=== PATIENT | male | born 1965 ===

== ENCOUNTER 2021-08-09 18:13 | Inpatient (IN) | payer OTHER ==
--- NOTE | 2021-08-09 22:59 | XR ---
EXAMINATION TYPE: XR chest 1V portable DATE OF EXAM: 08/09/2021 COMPARISON: NONE HISTORY: Fever TECHNIQUE: Single view FINDINGS: Heart is normal. Lungs are clear of consolidation. There are no hilar masses. Costophrenic angles are clear of fluid. There is small linear density left lung base. IMPRESSION: Mild scarring or subsegmental atelectasis left lung base. Normal heart.
[2021-08-09 23:46] LABS: Basophils # (A) 0.3 k/uL (0-0.2); Basophils % (A) 1 %; Eosinophils % (A) 0 %; HCT 33.8 % (39.0-53.0); HGB 11.1 gm/dL (13.0-17.5); Lymphocytes # (A) 0.7 k/uL (1.0-4.8); Lymphocytes % (A) 2 %; MCH 31.3 pg (25.0-35.0); MCHC 32.8 g/dL (31.0-37.0); MCV 95.5 fL (80.0-100.0); Mean Platelet Volume 7.5; Monocytes # (A) 0.9 k/uL (0-1.0); Monocytes % (A) 3 %; Neutrophils # (A) 32.5 k/uL (1.3-7.7); Neutrophils % (A) 94 %; Platelet Count 715 k/uL (150-450); RBC 3.54 m/uL (4.30-5.90); RDW 13.1 % (11.5-15.5); WBC 34.7 k/uL (3.8-10.6)
[2021-08-09 23:53] LABS: Appearance,Urine Cloudy (Clear); Bacteria,Urine Moderate /hpf; Bilirubin,Urine Negative (Negative); Blood,Urine Small (Negative); Color,Urine Yellow; Glucose,Urine (UA) Negative (Negative); Hyaline Casts,Urine 32 /lpf (0-2); Ketones,Urine Trace (Negative); Leukocyte Esterase,Urine Large (Negative); Mucus,Urine Many /hpf; Nitrite,Urine Negative (Negative); Protein,Urine 2+ (Negative); RBC,Urine 16 /hpf (0-5); Squamous Epithelial Cell,Urine 9 /hpf (0-4); WBC,Urine 79 /hpf (0-5)
[2021-08-09 23:55] LABS: Partial Thromboplastin Time 28.1 sec (22.0-30.0); Prothrombin Time 11.1 sec (9.0-12.0)
[2021-08-10 00:01] LABS: ALT 18 U/L (4-49); AST 34 U/L (17-59); African American GFR (CKD) >90 (>60 ml/min/1.73 sqM); Albumin 2.8 g/dL (3.5-5.0); Alkaline Phosphatase 186 U/L (38-126); Anion Gap 12 mmol/L; Blood Urea Nitrogen 35 mg/dL (9-20); Calcium 9.6 mg/dL (8.4-10.2); Carbon Dioxide 19 mmol/L (22-30); Chloride 109 mmol/L (98-107); Glucose 155 mg/dL (74-99); Non-African American GFR(CKD) >90 (>60 ml/min/1.73 sqM); Sodium 140 mmol/L (137-145); Total Bilirubin 0.4 mg/dL (0.2-1.3); Total Protein 6.1 g/dL (6.3-8.2)
[2021-08-10 00:03] LABS: Potassium 2.6 mmol/L (3.5-5.1)
[2021-08-10] MEDS ORDERED: LEVOFLOXACIN 750MG-D5W PMX 750 MG in DEXTROSE/WATER 1 150ML.BAG IVPB STA (01:03)
[2021-08-10] MEDS: SODIUM CHLORIDE 0.9% 1,000 ML IV SCH ×2 (01:06→06:36)
[2021-08-10] MEDS ORDERED: metroNIDAZOLE-NS PMX 500 MG in SALINE 1 100ML.BAG IVPB STA (01:07)
--- NOTE | 2021-08-10 01:13 | ED ---
General Adult HPI - General Chief complaint: Weakness Stated complaint: Fever/Bed Sores/AMS Time Seen by Provider: 08/09/21 21:52 Source: patient, EMS Mode of arrival: EMS Limitations: altered mental status - History of Present Illness Initial comments: 's patient is a 55-year-old man (history of adrenoleukodystrophy) brought to have evaluation for constellation of symptoms that been going on over the past few days. History is from the patient's as he is appearing to be delirious. Patient's states that going back approximately 3 days he has been wanting to sleep more, which she usually does when he gets sick, even with a minor cold. The patient has been having some fevers and she contacted is visiting nurse. He was seen by his home health care worker and then when the fever recurred they suggested he be brought to the emergency department. The patient has been sleeping much more than usual over the past 2 days, including most of the time since last night. In addition, the patient's states that she noted he had followed her and noted that there was a sore near the patient's buttocks. She does not know how long that has been present as he can be private about bowel movements. -: days(s) Consistency: constant Improves with: none Worsens with: none Associated Symptoms: confusion, loss of appetite Treatments Prior to Arrival: NSAID - Related Data Home Medications Medication Instructions Recorded Confirmed Escitalopram [Lexapro] 10 mg PO DAILY 08/09/21 08/09/21 Fluticasone Nasal [place] [Flonase 2 spray EA NOSTRIL DAILY 08/09/21 08/09/21 Nasal [place]] HYDROcodone/APAP 10-325MG [[place] 1 tab PO BID PRN 08/09/21 08/09/21 10-325] Ibuprofen [Advil] 200 mg PO Q8HR PRN 08/09/21 08/09/21 Ibuprofen [Motrin] 800 mg PO Q8H PRN 08/09/21 08/09/21 Mirabegron [Myrbetriq] 50 mg PO DAILY 08/09/21 08/09/21 Allergies Allergy/AdvReac Type Severity Reaction Status Date / Time aspirin AdvReac Abdominal Verified 08/17/21 10:53 Pain Review of Systems ROS Statement: Those systems with pertinent positive or pertinent negative responses have been documented in the HPI. ROS Other: All systems not noted in ROS Statement are negative. Limitations: ROS unobtainable due to patients medical condition Past Medical History Additional Past Medical History / Comment(s): adrenal leukomyopathy History of Any Multi-Drug Resistant Organisms: None Reported Additional Past Surgical History / Comment(s): unspecified abdominal surgey Past Psychological History: Depression Smoking Status: Current every day smoker Past Alcohol Use History: None Reported Past Drug Use History: Marijuana General Exam Limitations: no limitations General appearance: obtunded, cachectic Head exam: Present: atraumatic, normocephalic Eye exam: Present: PERRL, EOMI. Absent: scleral icterus, conjunctival injection ENT exam: Present: mucous membranes dry Neck exam: Present: normal inspection, full ROM. Absent: tenderness Respiratory exam: Present: normal lung sounds bilaterally. Absent: respiratory distress, wheezes, rales, rhonchi, stridor, accessory muscle use, decreased breath sounds Cardiovascular Exam: Present: regular rate, normal rhythm, normal heart sounds. Absent: systolic murmur, diastolic murmur, rubs, gallop GI/Abdominal exam: Present: soft. Absent: distended, tenderness, guarding, rebound, rigid, mass exam: Present: other ([place] catheter) Extremities exam: Present: other (Flexion contractures lower extremity) Neurological exam: Present: altered, CN II-XII intact. Absent: oriented X3 Skin exam: Present: warm, dry, normal color, other (There is decubitus ulcer covering the sacrum. Skin is necrotic but the wound is not open. Measurements pending, but extensive.) Course Vital Signs 08/09/21 08/10/21 08/10/21 19:46 00:00 01:00 Temperature 98.3 F Pulse Rate 99 110 H 99 Pulse Rate [ Right] Respiratory 18 22 16 Rate Blood Pressure 107/75 118/71 Blood Pressure [Right Arm] O2 Sat by Pulse 95 96 95 Oximetry 08/10/21 08/10/21 08/10/21 02:00 04:19 05:02 Temperature 100.4 F H 99.3 F Pulse Rate 95 94 98 Pulse Rate [ Right] Respiratory 16 18 18 Rate Blood Pressure 102/64 107/68 120/73 Blood Pressure [Right Arm] O2 Sat by Pulse 94 L 93 L 95 Oximetry 08/10/21 08/10/2108/10/21 07:59 09:30 13:29 Temperature 99.3 F Pulse Rate 96 96 89 Pulse Rate [ Right] Respiratory 18 18 18 Rate Blood Pressure 118/73 129/77 114/83 Blood Pressure [Right Arm] O2 Sat by Pulse 95 96 90 L Oximetry 08/10/21 08/11/21 18:57 00:33 Temperature 100.8 F H 99.5 F Pulse Rate 86 Pulse Rate [ 91 Right] Respiratory 16 18 Rate Blood Pressure 129/77 Blood Pressure 116/71 [Right Arm] O2 Sat by Pulse 91 L 95 Oximetry Procedures - Sepsis Sepsis Focused Exam #1 Sepsis Focused Exam Date: 08/10/21 Sepsis Focused Exam Time: 02:00 Sepsis Focused Exam Complete: Yes Vital Signs & RN Notes Reviewed: Yes Capillary Refill: < 2 Seconds: Fingers Peripheral Pulses: Normal: Radial (R) Skin Color: Flushed Respiratory Exam: normal lung sounds Cardiovascular Exam: regular rate Medical Decision Making - Lab Data Result diagrams: 08/24/21 05:23 08/24/21 05:23 Lab Results 08/09/21 08/09/21 08/09/21 Range/Units 23:10 23:10 23:10 WBC 34.7 H (3.8-10.6) k/uL RBC 3.54 L (4.30-5.90) m/uL Hgb 11.1 L (13.0-17.5) gm/dL Hct 33.8 L (39.0-53.0) % MCV 95.5 (80.0-100.0) fL MCH 31.3 (25.0-35.0) pg MCHC 32.8 (31.0-37.0) g/dL RDW 13.1 (11.5-15.5) % Plt Count 715 H (150-450) k/uL MPV 7.5 Neutrophils % 94 % Lymphocytes % 2 % Monocytes % 3 % Eosinophils % 0 % Basophils % 1 % Neutrophils # 32.5 H (1.3-7.7) k/uL Lymphocytes # 0.7 L (1.0-4.8) k/uL Monocytes # 0.9 (0-1.0) k/uL Eosinophils # 0.0 (0-0.7) k/uL Basophils # 0.3 H (0-0.2) k/uL PT 11.1 (9.0-12.0) sec INR 1.0 (<1.2) APTT 28.1 (22.0-30.0) sec Sodium (137-145) mmol/L Potassium (3.5-5.1) mmol/L Chloride (98-107) mmol/L Carbon Dioxide (22-30) mmol/L Anion Gap mmol/L BUN (9-20) mg/dL Creatinine (0.66-1.25) mg/dL Est GFR (CKD-EPI)AfAm (>60 ml/min/1.73 sqM) Est GFR (CKD-EPI)NonAf (>60 ml/min/1.73 sqM) Glucose (74-99) mg/dL Plasma Lactic Acid [place] (0.7-2.0) mmol/L Calcium (8.4-10.2) mg/dL Total Bilirubin (0.2-1.3) mg/dL AST (17-59) U/L ALT (4-49) U/L Alkaline Phosphatase (38-126) U/L Troponin I (0.000-0.034) ng/mL Total Protein (6.3-8.2) g/dL Albumin (3.5-5.0) g/dL Urine Color Yellow Urine Appearance Cloudy (Clear) Urine pH 7.0 (5.0-8.0) Ur Specific [place] 1.030 (1.001-1.035) Urine Protein 2+ H (Negative) Urine Glucose (UA) Negative (Negative) Urine Ketones Trace H (Negative) Urine Blood Small H (Negative) Urine Nitrite Negative (Negative) Urine Bilirubin Negative (Negative) Urine Urobilinogen 2.0 (<2.0) mg/dL Ur Leukocyte Esterase Large H (Negative) Urine RBC 16 H (0-5) /hpf Urine WBC 79 H (0-5) /hpf Ur Squamous Epith Cells 9 H (0-4) /hpf Urine Bacteria Moderate H (None) /hpf Hyaline Casts 32 H (0-2) /lpf Urine Mucus Many H (None) /hpf 08/09/21 08/09/21 08/09/21 Range/Units 23:10 23:10 23:10 WBC (3.8-10.6) k/uL RBC (4.30-5.90) m/uL Hgb (13.0-17.5) gm/dL Hct (39.0-53.0) % MCV (80.0-100.0) fL MCH (25.0-35.0) pg MCHC (31.0-37.0) g/dL RDW (11.5-15.5) % Plt Count (150-450) k/uL MPV Neutrophils % % Lymphocytes % % Monocytes % % Eosinophils % % Basophils % % Neutrophils # (1.3-7.7) k/uL Lymphocytes # (1.0-4.8) k/uL Monocytes # (0-1.0) k/uL Eosinophils # (0-0.7) k/uL Basophils # (0-0.2) k/uL PT (9.0-12.0) sec INR (<1.2) APTT (22.0-30.0) sec Sodium 140 (137-145) mmol/L Potassium 2.6 L* (3.5-5.1) mmol/L Chloride 109 H (98-107) mmol/L Carbon Dioxide 19 L (22-30) mmol/L Anion Gap 12 mmol/L BUN 35 H (9-20) mg/dL Creatinine 0.91 (0.66-1.25) mg/dL Est GFR (CKD-EPI)AfAm >90 (>60 ml/min/1.73 sqM) Est GFR (CKD-EPI)NonAf >90 (>60 ml/min/1.73 sqM) Glucose 155 H (74-99) mg/dL Plasma Lactic Acid [place] 1.5 (0.7-2.0) mmol/L Calcium 9.6 (8.4-10.2) mg/dL Total Bilirubin 0.4 (0.2-1.3) mg/dL AST 34 (17-59) U/L ALT 18 (4-49) U/L Alkaline Phosphatase 186 H (38-126) U/L Troponin I <0.012 (0.000-0.034) ng/mL Total Protein 6.1 L (6.3-8.2) g/dL Albumin 2.8 L (3.5-5.0) g/dL Urine Color Urine Appearance (Clear) Urine pH (5.0-8.0) Ur Specific [place] (1.001-1.035) Urine Protein (Negative) Urine Glucose (UA) (Negative) Urine Ketones (Negative) Urine Blood (Negative) Urine Nitrite (Negative) Urine Bilirubin (Negative) Urine Urobilinogen (<2.0) mg/dL Ur Leukocyte Esterase (Negative) Urine RBC (0-5) /hpf Urine WBC (0-5) /hpf Ur Squamous Epith Cells (0-4) /hpf Urine Bacteria (None) /hpf Hyaline Casts (0-2) /lpf Urine Mucus (None) /hpf Disposition Clinical Impression: Pressure ulcer of sacral region, stage 4, Sepsis, Acute kidney injury, Hypokalemia Disposition: ADMITTED IP TO THIS HOSP Condition: Fair Is patient prescribed a controlled substance at d/c from ED?: No
--- NOTE | 2021-08-10 01:36 | CT ---
EXAMINATION TYPE: CT brain wo con DATE OF EXAM: 08/10/2021 COMPARISON: None HISTORY: fever, ams, weakness, h/o adrenal leukomyopathy CT DLP: 1160.4 mGycm Automated exposure control for dose reduction was used. Images obtained of the brain without contrast. There is cerebral cortical atrophy. There is hypodensity in the periventricular white matter. There i s no mass effect nor midline shift. There is no sign of intracranial hemorrhage. There is very little pneumatization of the mastoid sinuses. IMPRESSION: Cerebral atrophy and chronic small vessel ischemia. No acute intracranial abnormality. Bilateral mast oiditis.
[2021-08-10] MEDS ORDERED: POTASSIUM BICARBONATE/CIT AC 20 MEQ TABLET.EFF PO ONE (01:45)
[2021-08-10] MEDS: PIPERACILLIN-TAZOBACTAM 3.375 GM in SODIUM CHLORIDE 0.9% 100 ML IVPB ONE ×2 (01:47→03:07)
[2021-08-10] MEDS ORDERED: NALOXONE 0.4 MG/ML 1 ML VIAL IV PRN (01:49)
[2021-08-10] MEDS: SODIUM CHLORIDE 0.9% 500 ML 500 ML IV SCH ×3 (01:49→02:51)
[2021-08-10] MEDS ORDERED: VANCOMYCIN IV PER PHARMACY 1 EACH MISC MISCELLANE PRN (03:00)
--- NOTE | 2021-08-10 03:03 | P.HPIM ---
History of Present Illness H&P Date: 08/10/21 The patient is a 55-year-old male with a PMH of adrenoleukodystrophy, essentially bedbound who was brought into the emergency room by his for buttock ulcer, worsening mental status, and fever. The history was provided by the at the bedside who notes that over the past 2 days, she has noticed gradually worsening mentation for the patient. She reports that he is normally able to hold conversations but had been mostly sleeping over the past 24 hours. She checked his temperature was was 102.4F, and subsequently noticed the large ulcer over his buttock and called his visiting nurse. She advised him to go to the emergency room. She notes that the patient is at multiple small ulcers in the gluteal region over the past several months which quickly worsened over the past few weeks. She notes the patient spent the majority of his time in a recliner and refuses to get up or move to the bed. He follows with a neurologist at [facility] and is trying to get set up with [facility]. 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 The patient was only oriented to self and not answering questions appropriately and thereby history was severely limited. The workup from the emergency room was reviewed with laboratory evaluation remarkable for leukocytosis of 34.7, potassium 2.6, CO2 19, BUN 35, glucose 155, and an abnormal UA. Review of systems: Unable to perform complete review of systems as patient not answering questions appropriately Physical examination: General: Frail chronically ill-appearing male, no distress, appears significantly older than stated age Derm: Very large sacral and gluteal foul-smelling unstageable ulcer, no unusual ecchymoses, warm, dry Head: atraumatic, normocephalic, symmetric Eyes: EOMI, no lid lag, anicteric sclera, pupils equal round reactive to light ENT: Nose and ears atraumatic, no thrush, no pharyngeal erythema Neck: No thyromegaly, no cervical lymphadenopathy, trachea midline, supple Mouth: no lip lesion, mucus membranes dry Cardiovascular: S1S2 reg, no murmur, positive posterior tibial pulse bilateral, no edema, capillary refill less than 2 seconds Lungs: CTA bilateral, no rhonchi, no rales , no accessory muscle use Abdominal: soft, nontender to palpation, no guarding, no appreciable organomegaly, normal bowel sounds Ext: Diffuse muscle atrophy noted, muscle strength 3 out of 5 of bilateral upper extremities, strength 1 out of 5 of lower extremities bilaterally, no contractures, Neuro: No gross focal deficits noted Psych: Lethargic, oriented only to self Assessment/plan Sepsis, suspected secondary to large unstageable sacral ulcer -Continue vancomycin and Zosyn -Surgery consulted for debridement -Continue with IV fluids -Follow up blood cultures Hypokalemia -Replace and monitor Prerenal azotemia, suspected secondary to poor oral intake and dehydration -Continue with IV fluids and monitor BMP Thrombocytosis, suspected reactive with dehydration and acute stressor -Monitor for now DVT prophylaxis -Heparin subcu The patient is admitted with an anticipated greater than 2 midnight stay for evaluation of sepsis secondary to sacral ulcer CODE STATUS: Full Code Discussed with: patient, Anticipated discharge date: 2-[address]: Home Past Medical History Additional Past Medical History / Comment(s): adrenal leukomyopathy History of Any Multi-Drug Resistant Organisms: None Reported Additional Past Surgical History / Comment(s): unspecified abdominal surgey Past Psychological History: Depression Smoking Status: Current every day smoker Past Alcohol Use History: None Reported Past Drug Use History: Marijuana Medications and Allergies Home Medications Medication Instructions Recorded Confirmed Type Escitalopram [Lexapro] 10 mg PO DAILY 08/09/21 08/09/21 History Fluticasone Nasal [place] [Flonase 2 spray EA NOSTRIL DAILY 08/09/21 08/09/21 History Nasal [place]] HYDROcodone/APAP 10-325MG [[place] 1 tab PO BID PRN 08/09/21 08/09/21 History 10-325] Ibuprofen [Advil] 200 mg PO Q8HR PRN 08/09/21 08/09/21 History Ibuprofen [Motrin] 800 mg PO Q8H PRN 08/09/21 08/09/21 History Mirabegron [Myrbetriq] 50 mg PO DAILY 08/09/21 08/09/21 History Allergies Allergy/AdvReac Type Severity Reaction Status Date / Time aspirin AdvReac Abdominal Verified 08/09/21 22:50 Pain Physical Exam Vitals: Vital Signs Temp Pulse Resp BP Pulse Ox 08/10/21 01:00 92 22 109/72 94 L 08/10/21 00:00 110 H 22 96 08/09/21 19:46 98.3 F 99 18 107/75 95 Intake and Output 08/09/21 08/09/21 08/10/21 14:59 22:59 06:59 Other: Weight 61.235 kg Results CBC & Chem 7: 08/09/21 23:10 08/09/21 23:10 Labs: Abnormal Lab Results - Last 24 Hours (Table) 08/09/21 08/09/21 08/09/21 Range/Units 23:10 23:10 23:10 WBC 34.7 H (3.8-10.6) k/uL RBC 3.54 L (4.30-5.90) m/uL Hgb 11.1 L (13.0-17.5) gm/dL Hct 33.8 L (39.0-53.0) % Plt Count 715 H (150-450) k/uL Neutrophils # 32.5 H (1.3-7.7) k/uL Lymphocytes # 0.7 L (1.0-4.8) k/uL Basophils # 0.3 H (0-0.2) k/uL Potassium 2.6 L* (3.5-5.1) mmol/L Chloride 109 H (98-107) mmol/L Carbon Dioxide 19 L (22-30) mmol/L BUN 35 H (9-20) mg/dL Glucose 155 H (74-99) mg/dL Alkaline Phosphatase 186 H (38-126) U/L Total Protein 6.1 L (6.3-8.2) g/dL Albumin 2.8 L (3.5-5.0) g/dL Urine Protein 2+ H (Negative) Urine Ketones Trace H (Negative) Urine Blood Small H (Negative) Ur Leukocyte Esterase Large H (Negative) Urine RBC 16 H (0-5) /hpf Urine WBC 79 H (0-5) /hpf Ur Squamous Epith Cells 9 H (0-4) /hpf Urine Bacteria Moderate H (None) /hpf Hyaline Casts 32 H (0-2) /lpf Urine Mucus Many H (None) /hpf
[2021-08-10] MEDS: ACETAMINOPHEN TAB 325 MG TAB PO PRN ×2 (03:07→09:59)
[2021-08-10] MEDS: VANCOMYCIN 1,250 MG in SODIUM CHLORIDE 0.9% 250 ML IVPB SCH ×2 (04:54→16:28)
[2021-08-10 05:58] LABS: African American GFR (CKD) >90 (>60 ml/min/1.73 sqM); Anion Gap 11 mmol/L; Blood Urea Nitrogen 31 mg/dL (9-20); Calcium 8.8 mg/dL (8.4-10.2); Carbon Dioxide 17 mmol/L (22-30); Chloride 115 mmol/L (98-107); Glucose 157 mg/dL (74-99); Non-African American GFR(CKD) >90 (>60 ml/min/1.73 sqM); Potassium 2.8 mmol/L (3.5-5.1); Sodium 143 mmol/L (137-145)
[2021-08-10] MEDS: POTASSIUM CHLORIDE 10 MEQ in WATER FOR INJECTION 1 100ML.BAG IVPB SCH ×2 (06:33→07:41)
[2021-08-10] MEDS: HEPARIN SODIUM,PORCINE/PF 5,000 UNIT/0.5 ML SYRINGE SQ SCH ×2 (07:58→16:01)
[2021-08-10] MEDS: PIPERACILLIN-TAZOBACTAM 3.375 GM in SODIUM CHLORIDE 0.9% 100 ML IVPB SCH ×2 (09:59→17:20)
[2021-08-10 10:18] LABS: HCT 27.8 % (39.6-50.0); HGB 9.1 g/dL (13.0-17.0); MCH 30.7 pg (27.0-32.0); MCHC 32.7 g/dL (32.0-37.0); MCV 93.9 fL (80.0-97.0); Mean Platelet Volume 10.1 fL (9.5-12.2); Platelet Count 610 X 10*3/uL (140-440); RBC 2.96 X 10*6/uL (4.40-5.60); RDW 13.9 % (11.5-14.5); WBC 27.06 X 10*3/uL (4.50-10.00)
[2021-08-10 12:21] LABS: African American GFR (CKD) >90 (>60 ml/min/1.73 sqM); Anion Gap 8 mmol/L; Blood Urea Nitrogen 24 mg/dL (9-20); Calcium 8.9 mg/dL (8.4-10.2); Carbon Dioxide 20 mmol/L (22-30); Chloride 118 mmol/L (98-107); Glucose 171 mg/dL (74-99); Non-African American GFR(CKD) >90 (>60 ml/min/1.73 sqM); Sodium 146 mmol/L (137-145)
[2021-08-10 12:34] LABS: Potassium 2.3 mmol/L (3.5-5.1)
[2021-08-10] MEDS ORDERED: POTASSIUM CHLORIDE 10 MEQ in WATER FOR INJECTION 1 100ML.BAG IVPB STA (12:48)
--- NOTE | 2021-08-10 12:52 | P.PN ---
Progress Note - Text Progress Note Date: 08/10/21 Patient was seen and examined, his potassium still low, sodium is higher. We'll change fluids to half-normal saline and continue to replace potassium. Infectious disease consult was placed to manage abx, follow up cultures. Awaiting surgery input.
[2021-08-10] MEDS: POTASSIUM CHLORIDE ER 20 MEQ TAB.ER PO SCH ×3 (13:19→20:45)
--- NOTE | 2021-08-10 14:13 | P.GSCN ---
History of Present Illness Consult date: 08/10/21 History of present illness: CHIEF COMPLAINT: Sacral decubitus ulcer HISTORY OF PRESENT ILLNESS: This is a 55-year-old male who is essentially bedbound who presents to the emergency room with worsening of his sacral decubitus ulcer. Per patient's patient had 2 small wounds on the sacrum. She had been applying cream to the area for the last 1-2 months. She had stopped applying the cream to the area over the last week. She reports that the patient had stopped complaining of pain in that area. And then within the last day patient was brought back into the ER due to worsening mental status, fever and worsening of the sacral wound. Patient did have a fever 102 at home. And the visiting home nurse had reported a very large sacral decubitus ulcer. Patient did have a low-grade temp of 100.4 early this morning with tachycardia and leukocytosis. Patient is currently on IV antibiotics. Surgical service consulted for debridement of sacral decubitus ulcer. Patient has no prior history of debridements to this area. PAST MEDICAL HISTORY: Adrenolleukodystrophy, depression PAST SURGICAL HISTORY: Unspecified abdominal surgery MEDICATIONS: See list. ALLERGIES: See list. SOCIAL HISTORY: No illicit drug use. REVIEW OF SYSTEMS: CONSTITUTIONAL: Denies fever or chills. HEENT: Denies blurred vision, vision changes, or eye pain. Denies hemoptysis CARDIOVASCULAR: Denies chest pain or pressure. RESPIRATORY: No shortness of breath. GASTROINTESTINAL: See HPI for pertinent findings HEMATOLOGIC: Denies bleeding disorders. GENITOURINARY: Denies any blood in urine or increased urinary frequency. SKIN: Denies pruitis. Denies rash. PHYSICAL EXAM: VITAL SIGNS: Reviewed GENERAL: Well-developed in no acute distress. HEENT: No sclera icterus. Extraocular movements grossly intact. Moist buccal mucosa. Head is atraumatic, normocephalic. No nasal drainage. ABDOMEN: Soft. Nondistended. Nontender NEUROLOGIC: Alert and oriented. Cranial nerves II through XII grossly intact. Skin: Patient has a large sacral decubitus ulcer measuring about 10 x 5 cm. Area black eschar tissue. Follow odor. No drainage. LABORATORY DATA: WBC 34.7 down to 27.06 Hgb 11.1 down to 9.1 PLT 610 Sodium 146 potassium 2.3 creatinine 0.56 Lactic 1.5 COVID-19 not detected IMAGING: ASSESSMENT: 1. Large sacral decubitus ulcer 2. Hypokalemia PLAN: -Patient scheduled for incision and debridement of sacral decubitus ulcer tomorrow, 08/11/[address] Perez -Keep patient nothing by mouth after midnight -Continue IV antibiotics -Continue to replace potassium -Check magnesium and replace as needed Thank you for this consultation Physician Game Producer note has been reviewed by physician. Signing provider agrees with the documented findings, assessment, and plan of care. Past Medical History Additional Past Medical History / Comment(s): adrenal leukomyopathy History of Any Multi-Drug Resistant Organisms: None Reported Additional Past Surgical History / Comment(s): unspecified abdominal surgey Past Psychological History: Depression Smoking Status: Current every day smoker Past Alcohol Use History: None Reported Past Drug Use History: Marijuana Medications and Allergies Home Medications Medication Instructions Recorded Confirmed Type Escitalopram [Lexapro] 10 mg PO DAILY 08/09/21 08/09/21 History Fluticasone Nasal [place] [Flonase 2 spray EA NOSTRIL DAILY 08/09/21 08/09/21 History Nasal [place]] HYDROcodone/APAP 10-325MG [[place] 1 tab PO BID PRN 08/09/21 08/09/21 History 10-325] Ibuprofen [Advil] 200 mg PO Q8HR PRN 08/09/21 08/09/21 History Ibuprofen [Motrin] 800 mg PO Q8H PRN 08/09/21 08/09/21 History Mirabegron [Myrbetriq] 50 mg PO DAILY 08/09/21 08/09/21 History Allergies Allergy/AdvReac Type Severity Reaction Status Date / Time aspirin AdvReac Abdominal Verified 08/09/21 22:50 Pain Surgical - Exam Vital Signs Temp Pulse Resp BP Pulse Ox 98.3 F 99 18 107/75 95 08/09/21 19:46 08/09/21 19:46 08/09/21 19:46 08/09/21 19:46 08/09/21 19:46 Results - Labs 08/10/21 03:48 08/10/21 11:40 Abnormal Lab Results - Last 24 Hours (Table) 08/09/21 08/09/21 08/09/21 Range/Units 23:10 23:10 23:10 WBC 34.7 H (3.8-10.6) k/uL RBC 3.54 L (4.30-5.90) m/uL Hgb 11.1 L (13.0-17.5) gm/dL Hct 33.8 L (39.0-53.0) % Plt Count 715 H (150-450) k/uL Neutrophils # 32.5 H (1.3-7.7) k/uL Lymphocytes # 0.7 L (1.0-4.8) k/uL Basophils # 0.3 H (0-0.2) k/uL Sodium (137-145) mmol/L Potassium 2.6 L* (3.5-5.1) mmol/L Chloride 109 H (98-107) mmol/L Carbon Dioxide 19 L (22-30) mmol/L BUN 35 H (9-20) mg/dL Creatinine (0.66-1.25) mg/dL Glucose 155 H (74-99) mg/dL Alkaline Phosphatase 186 H (38-126) U/L Total Protein 6.1 L (6.3-8.2) g/dL Albumin 2.8 L (3.5-5.0) g/dL Urine Protein 2+ H (Negative) Urine Ketones Trace H (Negative) Urine Blood Small H (Negative) Ur Leukocyte Esterase Large H (Negative) Urine RBC 16 H (0-5) /hpf Urine WBC 79 H (0-5) /hpf Ur Squamous Epith Cells 9 H (0-4) /hpf Urine Bacteria Moderate H (None) /hpf Hyaline Casts 32 H (0-2) /lpf Urine Mucus Many H (None) /hpf 08/10/21 08/10/21 08/10/21 Range/Units 03:48 03:48 11:40 WBC 27.06 H (3.8-10.6) k/uL RBC 2.96 L (4.30-5.90) m/uL Hgb 9.1 L (13.0-17.5) gm/dL Hct 27.8 L (39.0-53.0) % Plt Count 610 H (150-450) k/uL Neutrophils # (1.3-7.7) k/uL Lymphocytes # (1.0-4.8) k/uL Basophils # (0-0.2) k/uL Sodium 146 H (137-145) mmol/L Potassium 2.8 L 2.3 L* (3.5-5.1) mmol/L Chloride 115 H 118 H (98-107) mmol/L Carbon Dioxide 17 L 20 L (22-30) mmol/L BUN 31 H 24 H (9-20) mg/dL Creatinine 0.65 L 0.56 L (0.66-1.25) mg/dL Glucose 157 H 171 H (74-99) mg/dL Alkaline Phosphatase (38-126) U/L Total Protein (6.3-8.2) g/dL Albumin (3.5-5.0) g/dL Urine Protein (Negative) Urine Ketones (Negative) Urine Blood (Negative) Ur Leukocyte Esterase (Negative) Urine RBC (0-5) /hpf Urine WBC (0-5) /hpf Ur Squamous Epith Cells (0-4) /hpf Urine Bacteria (None) /hpf Hyaline Casts (0-2) /lpf Urine Mucus (None) /hpf Microbiology - Last 24 Hours (Table) 08/09/21 23:10 Urine Culture - Preliminary Urine,Voided Diabetes panel 08/09/21 08/10/21 08/10/21 Range/Units 23:10 03:48 11:40 Sodium 140 143 146 H (137-145) mmol/L Potassium 2.6 L* 2.8 L 2.3 L* (3.5-5.1) mmol/L Chloride 109 H 115 H 118 H (98-107) mmol/L Carbon Dioxide 19 L 17 L 20 L (22-30) mmol/L BUN 35 H 31 H 24 H (9-20) mg/dL Creatinine 0.91 0.65 L 0.56 L (0.66-1.25) mg/dL Glucose 155 H 157 H 171 H (74-99) mg/dL Calcium 9.6 8.8 8.9 (8.4-10.2) mg/dL AST 34 (17-59) U/L ALT 18 (4-49) U/L Alkaline Phosphatase 186 H (38-126) U/L Total Protein 6.1 L (6.3-8.2) g/dL Albumin 2.8 L (3.5-5.0) g/dL Calcium panel 08/09/21 08/10/21 08/10/21 Range/Units 23:10 03:48 11:40 Calcium 9.6 8.8 8.9 (8.4-10.2) mg/dL Albumin 2.8 L (3.5-5.0) g/dL Pituitary panel 08/09/21 08/10/21 08/10/21 Range/Units 23:10 03:48 11:40 Sodium 140 143 146 H (137-145) mmol/L Potassium 2.6 L* 2.8 L 2.3 L* (3.5-5.1) mmol/L Chloride 109 H 115 H 118 H (98-107) mmol/L Carbon Dioxide 19 L 17 L 20 L (22-30) mmol/L BUN 35 H 31 H 24 H (9-20) mg/dL Creatinine 0.91 0.65 L 0.56 L (0.66-1.25) mg/dL Glucose 155 H 157 H 171 H (74-99) mg/dL Calcium 9.6 8.8 8.9 (8.4-10.2) mg/dL Adrenal panel 08/09/21 08/10/21 08/10/21 Range/Units 23:10 03:48 11:40 Sodium 140 143 146 H (137-145) mmol/L Potassium 2.6 L* 2.8 L 2.3 L* (3.5-5.1) mmol/L Chloride 109 H 115 H 118 H (98-107) mmol/L Carbon Dioxide 19 L 17 L 20 L (22-30) mmol/L BUN 35 H 31 H 24 H (9-20) mg/dL Creatinine 0.91 0.65 L 0.56 L (0.66-1.25) mg/dL Glucose 155 H 157 H 171 H (74-99) mg/dL Calcium 9.6 8.8 8.9 (8.4-10.2) mg/dL Total Bilirubin 0.4 (0.2-1.3) mg/dL AST 34 (17-59) U/L ALT 18 (4-49) U/L Alkaline Phosphatase 186 H (38-126) U/L Total Protein 6.1 L (6.3-8.2) g/dL Albumin 2.8 L (3.5-5.0) g/dL
[2021-08-10] MEDS: SODIUM CHLORIDE 0.45% 1,000 ML IV SCH (16:00)
[2021-08-10] MEDS ORDERED: POTASSIUM CHLORIDE 10 MEQ in WATER FOR INJECTION 1 100ML.BAG IVPB ONE (16:00)
[2021-08-10 18:45] LABS: Magnesium 2.4 mg/dL (1.6-2.3)
[2021-08-10 19:19] LABS: African American GFR (CKD) >90 (>60 ml/min/1.73 sqM); Anion Gap 8 mmol/L; Blood Urea Nitrogen 22 mg/dL (9-20); Carbon Dioxide 19 mmol/L (22-30); Chloride 119 mmol/L (98-107); Glucose 162 mg/dL (74-99); Non-African American GFR(CKD) >90 (>60 ml/min/1.73 sqM); Potassium 2.9 mmol/L (3.5-5.1); Sodium 146 mmol/L (137-145)
[2021-08-11] MEDS: AMPICILLIN-SULBACTAM 3 GM in SODIUM CHLORIDE 0.9% 100 ML IVPB SCH ×4 (00:46→18:20)
[2021-08-11] MEDS: POTASSIUM CHLORIDE ER 20 MEQ TAB.ER PO SCH (00:47)
[2021-08-11] MEDS: ACETAMINOPHEN TAB 325 MG TAB PO PRN ×2 (00:47→15:02)
[2021-08-11] MEDS: HEPARIN SODIUM,PORCINE/PF 5,000 UNIT/0.5 ML SYRINGE SQ SCH ×3 (00:47→15:03)
[2021-08-11] MEDS: SODIUM CHLORIDE 0.45% 1,000 ML IV SCH ×2 (01:52→10:37)
[2021-08-11] MEDS: VANCOMYCIN 1,250 MG in SODIUM CHLORIDE 0.9% 250 ML IVPB SCH ×2 (03:18→16:09)
[2021-08-11 06:20] LABS: African American GFR (CKD) >90 (>60 ml/min/1.73 sqM); Anion Gap 6 mmol/L; Blood Urea Nitrogen 19 mg/dL (9-20); Carbon Dioxide 20 mmol/L (22-30); Chloride 124 mmol/L (98-107); Glucose 151 mg/dL (74-99); Magnesium 2.4 mg/dL (1.6-2.3); Non-African American GFR(CKD) >90 (>60 ml/min/1.73 sqM); Potassium 3.4 mmol/L (3.5-5.1); Sodium 150 mmol/L (137-145)
[2021-08-11 06:28] LABS: Basophils % (A) 0 %; Eosinophils % (A) 0 %; HCT 29.8 % (39.0-53.0); HGB 9.7 gm/dL (13.0-17.5); Lymphocytes # (A) 1.2 k/uL (1.0-4.8); Lymphocytes % (A) 5 %; MCH 31.4 pg (25.0-35.0); MCHC 32.5 g/dL (31.0-37.0); MCV 96.7 fL (80.0-100.0); Mean Platelet Volume 7.6; Monocytes # (A) 0.5 k/uL (0-1.0); Monocytes % (A) 2 %; Neutrophils # (A) 20.1 k/uL (1.3-7.7); Neutrophils % (A) 91 %; Platelet Count 612 k/uL (150-450); RBC 3.08 m/uL (4.30-5.90); RDW 13.2 % (11.5-15.5); WBC 22.1 k/uL (3.8-10.6)
[2021-08-11] MEDS ORDERED: POTASSIUM CHLORIDE 20 MEQ in WATER FOR INJECTION 1 100ML.BAG IVPB STA (07:47)
[2021-08-11] MEDS ORDERED: POTASSIUM CHLORIDE 10 MEQ in WATER FOR INJECTION 1 100ML.BAG IVPB STA (10:34)
--- NOTE | 2021-08-11 10:58 | P.CONS ---
History of Present Illness - Reason for Consult Consult date: 08/10/21 sepsis Requesting physician: Barbara Brown - Chief Complaint worsening wound to the sacral area x days - History of Present Illness History of Present Illness : Patient is a 55-year-old male with a past medical history significant for adrenal muscular leuko neuropathy in this patient who did have a limited mobility and has been wheelchair-bound patient has pressure ulcer to the sacral area for months which has been taking care of by his she was using some calmoseptine lotion however she mentioned over the last few days 2 weeks patient would not allow him to change the dressing or to put any lotion on it for the last few days the patient noticed Boyer smell from his sacral wound area and the patient started having a fever more delirious and want to sleep more patient recently has been treated with a 7-day course of oral Cipro by his primary care physician for possible UTI with worsening symptoms the patient did presented to the hospital on arrival to the ER to be to have low-grade fever 100.4 F patient did have white count of 34,000 , with a left shift kidney function has been normal potassium was low urine is positive this patient did have a chronic indwelling Ovalles catheter with which was recently changed about 2 weeks ago patient did have a chest x-ray with mild scarring or subsegmental atelectasis left lung base patient was started on vancomycin and Zosyn has been admitted to hospital infectious he was consulted for further management of antibiotic therapy patient be evaluated by general surgery and is scheduled for I&D of the sacral wound tomorrow Review of system: CONSTITUTIONAL: Positive for weakness fever. EYES: No complaint. ENT: No complaint. RESPIRATORY: No complaint. CARDIOVASCULAR: No complaint. GENITOURINARY: No complaint. GASTROINTESTINAL: No complaint. MUSCULOSKELETAL: As per history of present illness. INTEGUMENTARY : As per history of present illness. PSYCHOLOGIC: No complaint. ENDOCRINE: No complaint. NEUROLOGIC: No complaint. Past medical history : Reviewed, documented below Past surgical history : Reviewed, documented below Social history: Reviewed, documented below Medications: Reviewed, as documented below EXAMINATION: Vital sigans= Reviewed and documented below GENERAL DESCRIPTION: Middle-aged male lying in bed, no distress. No tachypnea or accessory muscle of respiration use. HEENT: Shows Pallor , no scleral icterus. Oral mucous membrane is dry. NECK: Trachea central, no thyromegaly. LUNGS: Unlabored breathing. Clear to auscultation anteriorly. No wheeze or pararescue craftsman ckle. HEART: S1, S2, regular rate and rhythm. ABDOMEN: Soft, no tenderness , guarding or rigidity EXTREMITIES: No edema feet SKIN: No rash, no masses palpable. Patient did have unstageable sacral pressure ulcer with necrotic tissue surrounding redness and foul-smelling drainage NEUROLOGICAL: The patient is awake, alert, oriented x3, mood and affect normal. LABS AND RADIOLOGY: Reviewed results see below Assessment : Patient presented to hospital with sepsis in this patient have fever elevated white count source likely infected sacral pressure ulcer and will need to cover for both gram-positive as well as gram-negative patient also have positive UA with chronic indwelling Ovalles catheter and recently treated for UTI in the outpatient setting a possible component of UTI secondary to Ovalles c atheter not done excluded Plan: 1-await surgical debridement of his sacral ulcer and deep cultures 2-vancomycin pharmacy to dose target trough of 15 while watching kidney function and vancomycin trough closely 3-discontinue Zosyn decrease risk of nephrotoxicity and add Unasyn while awaiting further work-up to finalize We will follow on clinical condition and cultures to further adjust medication if needed Thank you for this consultation we will follow the patient along with you Past Medical History Additional Past Medical History / Comment(s): adrenal leukomyopathy History of Any Multi-Drug Resistant Organisms: None Reported Additional Past Surgical History / Comment(s): unspecified abdominal surgey Past Psychological History: Depression Smoking Status: Current every day smoker Past Alcohol Use History: None Reported Past Drug Use History: Marijuana Medications and Allergies Home Medications Medication Instructions Recorded Confirmed Type Escitalopram [Lexapro] 10 mg PO DAILY 08/09/21 08/09/21 History Fluticasone Nasal [place] [Flonase 2 spray EA NOSTRIL DAILY 08/09/21 08/09/21 History Nasal [place]] HYDROcodone/APAP 10-325MG [[place] 1 tab PO BID PRN 08/09/21 08/09/21 History 10-325] Ibuprofen [Advil] 200 mg PO Q8HR PRN 08/09/21 08/09/21 History Ibuprofen [Motrin] 800 mg PO Q8H PRN 08/09/21 08/09/21 History Mirabegron [Myrbetriq] 50 mg PO DAILY 08/09/21 08/09/21 History Allergies Allergy/AdvReac Type Severity Reaction Status Date / Time aspirin AdvReac Abdominal Verified 08/09/21 22:50 Pain Physical Exam Vitals: Vital Signs Temp Pulse Resp BP Pulse Ox 08/10/21 13:29 89 18 114/83 90 L 08/10/21 09:30 99.3 F 96 18 129/77 96 08/10/21 07:59 96 18 118/73 95 08/10/21 05:02 99.3 F 98 18 120/73 95 08/10/21 04:19 94 18 107/68 93 L 08/10/21 02:00 100.4 F H 95 16 102/64 94 L 08/10/21 01:00 99 16 118/71 95 08/10/21 00:00 110 H 22 96 08/09/21 19:46 98.3 F 99 18 107/75 95 Results CBC & Chem 7: 08/11/21 05:29 08/11/21 05:29 Labs: Abnormal Lab Results - Last 24 Hours (Table) 08/09/21 08/09/21 08/09/21 Range/Units 23:10 23:10 23:10 WBC 34.7 H (3.8-10.6) k/uL RBC 3.54 L (4.30-5.90) m/uL Hgb 11.1 L (13.0-17.5) gm/dL Hct 33.8 L (39.0-53.0) % Plt Count 715 H (150-450) k/uL Neutrophils # 32.5 H (1.3-7.7) k/uL Lymphocytes # 0.7 L (1.0-4.8) k/uL Basophils # 0.3 H (0-0.2) k/uL Sodium (137-145) mmol/L Potassium 2.6 L* (3.5-5.1) mmol/L Chloride 109 H (98-107) mmol/L Carbon Dioxide 19 L (22-30) mmol/L BUN 35 H (9-20) mg/dL Creatinine (0.66-1.25) mg/dL Glucose 155 H (74-99) mg/dL Alkaline Phosphatase 186 H (38-126) U/L Total Protein 6.1 L (6.3-8.2) g/dL Albumin 2.8 L (3.5-5.0) g/dL Urine Protein 2+ H (Negative) Urine Ketones Trace H (Negative) Urine Blood Small H (Negative) Ur Leukocyte Esterase Large H (Negative) Urine RBC 16 H (0-5) /hpf Urine WBC 79 H (0-5) /hpf Ur Squamous Epith Cells 9 H (0-4) /hpf Urine Bacteria Moderate H (None) /hpf Hyaline Casts 32 H (0-2) /lpf Urine Mucus Many H (None) /hpf 08/10/21 08/10/21 08/10/21 Range/Units 03:48 03:48 11:40 WBC 27.06 H (3.8-10.6) k/uL RBC 2.96 L (4.30-5.90) m/uL Hgb 9.1 L (13.0-17.5) gm/dL Hct 27.8 L (39.0-53.0) % Plt Count 610 H (150-450) k/uL Neutrophils # (1.3-7.7) k/uL Lymphocytes # (1.0-4.8) k/uL Basophils # (0-0.2) k/uL Sodium 146 H (137-145) mmol/L Potassium 2.8 L 2.3 L* (3.5-5.1) mmol/L Chloride 115 H 118 H (98-107) mmol/L Carbon Dioxide 17 L 20 L (22-30) mmol/L BUN 31 H 24 H (9-20) mg/dL Creatinine 0.65 L 0.56 L (0.66-1.25) mg/dL Glucose 157 H 171 H (74-99) mg/dL Alkaline Phosphatase (38-126) U/L Total Protein (6.3-8.2) g/dL Albumin (3.5-5.0) g/dL Urine Protein (Negative) Urine Ketones (Negative) Urine Blood (Negative) Ur Leukocyte Esterase (Negative) Urine RBC (0-5) /hpf Urine WBC (0-5) /hpf Ur Squamous Epith Cells (0-4) /hpf Urine Bacteria (None) /hpf Hyaline Casts (0-2) /lpf Urine Mucus (None) /hpf Microbiology - Last 24 Hours (Table) 08/09/21 23:10 Urine Culture - Preliminary Urine,Voided
[2021-08-11] MEDS: DEXTROSE 5% IN WATER 1,000 ML IV SCH (11:12)
[2021-08-11] MEDS ORDERED: IV FLUID CONTINUATION 1,000 ML IV ONE (13:24)
--- NOTE | 2021-08-11 14:40 | P.PN ---
Subjective Progress Note Date: 08/11/21 Principal diagnosis: back cellulitis Patient having severe back pain, no complaints other than that. No fevers or chills. Objective - Vital Signs Vital signs: Vital Signs Temp 101.3 F H 08/11/21 13:31 Pulse 92 08/11/21 13:31 Resp 18 08/11/21 13:31 BP 129/76 08/11/21 13:31 Pulse Ox 92 L 08/11/21 13:31 Intake & Output 08/10/21 08/11/21 08/11/21 18:59 06:59 18:59 Intake Total 1050 Output Total 800 Balance 250 Intake: Intake, IV Titration 1050 Amount Ampicillin-Sulbactam 3 gm 200 In Sodium Chloride 0.9% 100 ml @ 200 mls/hr IVPB Q6HR [facility] Rx#:[id number] Sodium Chloride 0.45% 1, 600 000 ml @ 100 mls/hr IV . Q10H [facility] Rx#:[id number] Vancomycin 1,250 mg In 250 Sodium Chloride 0.9% 250 ml @ 125 mls/hr IVPB Q12H [facility] Rx#:[id number] Output: Urine 800 Other: Voiding Method Indwelling Catheter # Bowel Movements 1 - Exam GENERAL DESCRIPTION: Middle-aged male lying in bed, no distress. No tachypnea or accessory muscle of respiration use. HEENT: Shows Pallor , no scleral icterus. Oral mucous membrane is dry. NECK: Trachea central, no thyromegaly. LUNGS: Unlabored breathing. Clear to auscultation anteriorly. No wheeze or crackle. HEART: S1, S2, regular rate and rhythm. ABDOMEN: Soft, no tenderness , guarding or rigidity EXTREMITIES: No edema feet SKIN: No rash, no masses palpable. Patient did have unstageable sacral pressure ulcer with necrotic tissue surrounding redness and foul-smelling drainage NEUROLOGICAL: The patient is awake, alert, oriented x3, mood and affect normal. - Labs CBC & Chem 7: 08/11/21 05:29 08/11/21 05:29 Labs: Abnormal Lab Results - Last 24 Hours (Table) 08/10/21 08/11/21 08/11/21 Range/Units 17:55 05:29 05:29 WBC 22.1 H (3.8-10.6) k/uL RBC 3.08 L (4.30-5.90) m/uL Hgb 9.7 L (13.0-17.5) gm/dL Hct 29.8 L (39.0-53.0) % Plt Count 612 H (150-450) k/uL Neutrophils # 20.1 H (1.3-7.7) k/uL Sodium 146 H 150 H (137-145) mmol/L Potassium 2.9 L 3.4 L (3.5-5.1) mmol/L Chloride 119 H 124 H (98-107) mmol/L Carbon Dioxide 19 L 20 L (22-30) mmol/L BUN 22 H (9-20) mg/dL Creatinine 0.52 L 0.48 L (0.66-1.25) mg/dL Glucose 162 H 151 H (74-99) mg/dL Magnesium 2.4 H 2.4 H (1.6-2.3) mg/dL Microbiology - Last 24 Hours (Table) 08/09/21 23:10 Blood Culture Gram Stain - Preliminary Blood Blood Culture - Preliminary Bacteroides fragilis 08/09/21 23:20 Blood Culture Gram Stain - Preliminary Blood 08/09/21 23:10 Urine Culture - Preliminary Urine,Voided Presumptive Staph aureus 08/09/21 23:20 Blood Culture - Final Blood 08/09/21 23:10 Blood Culture - Final Blood Assessment and Plan Plan: Sepsis, suspected secondary to large unstageable sacral ulcer -Continue vancomycin and unasyn -Surgery consulted for debridement--to be done today -Add morphine for pain -Continue with IV fluids -Follow up blood cultures Hypokalemia -Replace and monitor Prerenal azotemia, suspected secondary to poor oral intake and dehydration -Continue with IV fluids and monitor BMP Thrombocytosis, suspected reactive with dehydration and acute stressor -Monitor for now DVT prophylaxis -Heparin subcu CODE STATUS: Full Code Discussed with: patient, Anticipated discharge date: 2-[address]: Home
[2021-08-11 14:54] VITALS: BMI 21.7
[2021-08-11] MEDS ORDERED: VANCOMYCIN TROUGH DUE 1 EACH MISC MISCELLANE ONE (15:00)
[2021-08-11] MEDS: MORPHINE SULFATE 2 MG/ML SYRINGE IVP PRN ×2 (15:02→19:43)
--- NOTE | 2021-08-11 15:14 | P.PN ---
Subjective Progress Note Date: 08/11/21 CHIEF COMPLAINT: Sacral decubitus ulcer HISTORY OF PRESENT ILLNESS: Surgical service is following in regards patient's sacral decubitus ulcer. Patient initially scheduled for debridement today. However, due to OR scheduling surgery will be rescheduled for tomorrow. Patient sleeping comfortably. Patient has been febrile with temperature 101.3 WBC 22.1 Hgb 9.7 sodium 150 potassium 3.4 creatinine 0.48 magnesium 2.4 positive blood culture with bacteroids fragilis and urine culture presumptive staph aureus PHYSICAL EXAM: VITAL SIGNS: Reviewed. GENERAL: Well-developed in no acute distress. HEENT: No sclera icterus. Extraocular movements grossly intact. Moist buccal mucosa. Head is atraumatic, normocephalic. ABDOMEN: Soft. Nondistended. Nontender. NEUROLOGIC: Alert and oriented. Cranial nerves II through XII grossly intact. ASSESSMENT: 1. Large sacral decubitus ulcer 2. Hypokalemia 3. Hypernatremia 4. Sepsis due to large sacral decubitus ulcer 5. History of adrenaleukodystrophy PLAN: -Patient scheduled for incision and debridement of sacral decubitus ulcer tomorrow, 08/12/[address] Perez -Keep patient nothing by mouth after midnight -Okay to have regular diet today -Continue IV antibiotics per ID service -Continue to replace potassium -Hypernatremia management per medicine service Physician Inspector Tubes note has been reviewed by physician. Signing provider agrees with the documented findings, assessment, and plan of care. Objective - Vital Signs Vital signs: Vital Signs Temp 101.3 F H 08/11/21 13:31 Pulse 92 08/11/21 13:31 Resp 18 08/11/21 13:31 BP 129/76 08/11/21 13:31 Pulse Ox 92 L 08/11/21 13:31 Intake & Output 08/10/21 08/11/21 08/11/21 18:59 06:59 18:59 Intake Total 1050 Output Total 800 Balance 250 Weight 61.235 kg Intake: Intake, IV Titration 1050 Amount Ampicillin-Sulbactam 3 gm 200 In Sodium Chloride 0.9% 100 ml @ 200 mls/hr IVPB Q6HR [facility] Rx#:[id number] Sodium Chloride 0.45% 1, 600 000 ml @ 100 mls/hr IV . Q10H [facility] Rx#:[id number] Vancomycin 1,250 mg In 250 Sodium Chloride 0.9% 250 ml @ 125 mls/hr IVPB Q12H [facility] Rx#:[id number] Output: Urine 800 Other: Voiding Method Indwelling Catheter # Bowel Movements 1 - Labs CBC & Chem 7: 08/11/21 05:29 08/11/21 05:29 Labs: Abnormal Lab Results - Last 24 Hours (Table) 08/10/21 08/11/21 08/11/21 Range/Units 17:55 05:29 05:29 WBC 22.1 H (3.8-10.6) k/uL RBC 3.08 L (4.30-5.90) m/uL Hgb 9.7 L (13.0-17.5) gm/dL Hct 29.8 L (39.0-53.0) % Plt Count 612 H (150-450) k/uL Neutrophils # 20.1 H (1.3-7.7) k/uL Sodium 146 H 150 H (137-145) mmol/L Potassium 2.9 L 3.4 L (3.5-5.1) mmol/L Chloride 119 H 124 H (98-107) mmol/L Carbon Dioxide 19 L 20 L (22-30) mmol/L BUN 22 H (9-20) mg/dL Creatinine 0.52 L 0.48 L (0.66-1.25) mg/dL Glucose 162 H 151 H (74-99) mg/dL Magnesium 2.4 H 2.4 H (1.6-2.3) mg/dL Microbiology - Last 24 Hours (Table) 08/09/21 23:10 Blood Culture Gram Stain - Preliminary Blood Blood Culture - Preliminary Bacteroides fragilis 08/09/21 23:20 Blood Culture Gram Stain - Preliminary Blood 08/09/21 23:10 Urine Culture - Preliminary Urine,Voided Presumptive Staph aureus 08/09/21 23:20 Blood Culture - Final Blood 08/09/21 23:10 Blood Culture - Final Blood
--- NOTE | 2021-08-11 16:37 | PN ---
PROGRESS NOTE DATE OF SERVICE: 08/11/2021 REASON FOR FOLLOWUP: 1. Infected sacral pressure ulcer. 2. . INTERVAL HISTORY: The patient did spike a fever this afternoon 101.3. This morning, the patient was afebrile, slightly more awake, alert, breathing comfortably. No chest pain, shortness of breath or cough. No abdominal pain or worsening pain to the sacral wound area. PHYSICAL EXAMINATION: Blood pressure 129/66, pulse of 90, temperature 101.3. He is 92% on 2 L nasal cannula. General description is a middle-aged male lying in bed in no distress. Respiratory system: Unlabored breathing, clear to auscultation anteriorly. Heart S1, S2. Regular rate and rhythm. Abdomen soft, no tenderness. LABS: Hemoglobin 9.7, white count 2.1. Creatinine 0.48. DIAGNOSTIC IMPRESSION AND PLAN: Patient admitted to the hospital with sepsis, source likely infected sacral pressure ulcer now with bacteremia. Urine showing Staph aureus. Patient is covered with vancomycin and Unasyn, waiting for the surgical debridement and deep cultures. at the bedside. questions, those were answered. MMODL / IJN: [id number] /
[2021-08-12] MEDS: VANCOMYCIN 1,250 MG in SODIUM CHLORIDE 0.9% 250 ML IVPB SCH ×4 (00:51→23:50)
[2021-08-12] MEDS: AMPICILLIN-SULBACTAM 3 GM in SODIUM CHLORIDE 0.9% 100 ML IVPB SCH ×4 (00:52→21:48)
[2021-08-12] MEDS: HEPARIN SODIUM,PORCINE/PF 5,000 UNIT/0.5 ML SYRINGE SQ SCH ×4 (00:52→23:51)
[2021-08-12] MEDS: MORPHINE SULFATE 2 MG/ML SYRINGE IVP PRN ×2 (01:54→10:00)
[2021-08-12] MEDS: DEXTROSE 5% IN WATER 1,000 ML IV SCH ×2 (04:17→13:43)
[2021-08-12 06:37] LABS: Basophils % (A) 0 %; Eosinophils % (A) 0 %; HCT 28.1 % (39.0-53.0); HGB 9.3 gm/dL (13.0-17.5); Lymphocytes # (A) 1.2 k/uL (1.0-4.8); Lymphocytes % (A) 6 %; MCH 32.1 pg (25.0-35.0); MCHC 33.1 g/dL (31.0-37.0); Mean Platelet Volume 7.9; Monocytes # (A) 0.5 k/uL (0-1.0); Monocytes % (A) 2 %; Neutrophils # (A) 18.2 k/uL (1.3-7.7); Neutrophils % (A) 90 %; Platelet Count 520 k/uL (150-450); RDW 13.2 % (11.5-15.5); WBC 20.1 k/uL (3.8-10.6)
[2021-08-12 07:03] LABS: African American GFR (CKD) >90 (>60 ml/min/1.73 sqM); Anion Gap 4 mmol/L; Blood Urea Nitrogen 17 mg/dL (9-20); Calcium 8.3 mg/dL (8.4-10.2); Carbon Dioxide 23 mmol/L (22-30); Chloride 123 mmol/L (98-107); Glucose 158 mg/dL (74-99); Magnesium 2.4 mg/dL (1.6-2.3); Non-African American GFR(CKD) >90 (>60 ml/min/1.73 sqM); Sodium 150 mmol/L (137-145)
[2021-08-12] MEDS ORDERED: POTASSIUM CHLORIDE 10 MEQ in WATER FOR INJECTION 1 100ML.BAG IVPB STA (10:27)
[2021-08-12] MEDS ORDERED: POTASSIUM CHLORIDE ER 20 MEQ TAB.ER PO STA (10:27)
[2021-08-12] MEDS: POTASSIUM CHLORIDE 10 MEQ in WATER FOR INJECTION 1 100ML.BAG IVPB SCH ×2 (14:47→21:49)
--- NOTE | 2021-08-12 16:54 | P.PN ---
Subjective Progress Note Date: 08/12/21 Principal diagnosis: back cellulitis Patient still having back pain. The pain medications aren't helping much. Patient had a low-grade temperature of 99.9 this morning. Objective - Vital Signs Vital signs: Vital Signs Temp 98.5 F 08/12/21 13:45 Pulse 72 08/12/21 13:45 Resp 20 08/12/21 13:45 BP 126/72 08/12/21 13:45 Pulse Ox 94 L 08/12/21 13:45 Intake & Output 08/11/21 08/12/21 08/12/21 18:59 06:59 18:59 Intake Total 0 Output Total 300 Balance -300 Weight 61.235 kg Intake: Oral 0 Output: Urine 300 Other: Voiding Method Indwelling Catheter Indwelling Catheter Indwelling Catheter # Bowel Movements 1 - Exam GENERAL DESCRIPTION: Middle-aged male lying in bed, no distress. No tachypnea or accessory muscle of respiration use. HEENT: Shows Pallor , no scleral icterus. Oral mucous membrane is dry. NECK: Trachea central, no thyromegaly. LUNGS: Unlabored breathing. Clear to auscultation anteriorly. No wheeze or crackle. HEART: S1, S2, regular rate and rhythm. ABDOMEN: Soft, no tenderness , guarding or rigidity EXTREMITIES: No edema feet SKIN: No rash, no masses palpable. Patient did have unstageable sacral pressure ulcer with necrotic tissue surrounding redness and foul-smelling drainage NEUROLOGICAL: The patient is awake, alert, oriented x3, mood and affect normal. - Labs CBC & Chem 7: 08/12/21 05:38 08/12/21 05:38 Labs: Abnormal Lab Results - Last 24 Hours (Table) 08/12/21 08/12/21 Range/Units 05:38 05:38 WBC 20.1 H (3.8-10.6) k/uL RBC 2.90 L (4.30-5.90) m/uL Hgb 9.3 L (13.0-17.5) gm/dL Hct 28.1 L (39.0-53.0) % Plt Count 520 H (150-450) k/uL Neutrophils # 18.2 H (1.3-7.7) k/uL Sodium 150 H (137-145) mmol/L Potassium 3.0 L (3.5-5.1) mmol/L Chloride 123 H (98-107) mmol/L Creatinine 0.42 L (0.66-1.25) mg/dL Glucose 158 H (74-99) mg/dL Calcium 8.3 L (8.4-10.2) mg/dL Magnesium 2.4 H (1.6-2.3) mg/dL Microbiology - Last 24 Hours (Table) 08/09/21 23:20 Blood Culture Gram Stain - Preliminary Blood Blood Culture - Final Anaerobic Gm Negative Bacilli 08/09/21 23:10 Urine Culture - Final Urine,Voided Methicillin resist S. aureus 08/09/21 23:10 Blood Culture Gram Stain - Preliminary Blood Blood Culture - Preliminary Bacteroides fragilis Assessment and Plan Plan: Sepsis, suspected secondary to large unstageable sacral ulcer -Continue vancomycin and unasyn -Surgery consulted for debridement--to be done today -Add morphine for pain -Continue with IV fluids -Follow up blood cultures Gram-negative bacteremia -BCs with: Gram-negative bacilli as well as Bacteroides species -ID following -Continue with Unasyn as above MRSA UTI -Continue vancomycin Hypokalemia -Replace and monitor Thrombocytosis, suspected reactive with dehydration and acute stressor -Monitor for now DVT prophylaxis -Heparin subcu CODE STATUS: Full Code Discussed with: patient, Anticipated discharge date: 2-[address]: Home
[2021-08-12] MEDS ORDERED: PROPOFOL 10 MG/ML 20 ML VIAL IV ONE (19:40)
[2021-08-12] MEDS ORDERED: HEPARIN SODIUM,PORCINE 5,000 UNIT/ML 1 ML VIAL ONE (19:40)
[2021-08-12] MEDS ORDERED: LIDOCAINE 1% INJ 10MG/ML (20 ML MDV) ONE (19:40)
[2021-08-12] MEDS ORDERED: .fentaNYL (PF) 50 MCG/ML 2 ML AMP ONE (19:40)
[2021-08-12] MEDS ORDERED: SUCCINYLCHOLINE CHLORIDE 100 MG/5 ML SYR IV ONE (19:40)
[2021-08-12] MEDS ORDERED: IV FLUID CONTINUATION 1,000 ML IV ONE (19:46)
[2021-08-12] MEDS ORDERED: LACTATED RINGERS 1,000 ML IV ONE (20:22)
--- NOTE | 2021-08-12 20:29 | P.OP ---
Date of Procedure: 08/12/21 Preoperative Diagnosis: Decubitus ulcer Postoperative Diagnosis: Infected decubitus ulcer Procedure(s) Performed: Debridement of decubitus ulcer Anesthesia: IVETTE Surgeon: Spencer Perez Estimated Blood Loss (ml): 25 Pathology: other (Decubitus ulcer) Condition: stable Disposition: PACU Description of Procedure: Patient had a sacral decubitus ulcer. The ulcer measured approximately 20 x 15 x 3 centimeters. The using electrocautery in the cut mode the decubitus ulcer was debrided. Skin subcutaneous tissue and muscle were debrided. There was good hemostasis. Bleeding was controlled with cautery. The wound was then packed with wet-to-dry Kerlix. Patient tolerated well sent to recovery room in stable condition
[2021-08-12] MEDS ORDERED: HYDROmorphone 0.5 MG/0.5 ML SYRINGE IVP PRN (21:57)
[2021-08-12] MEDS ORDERED: ONDANSETRON 4 MG/2 ML VIAL IVP ONE (21:57)
[2021-08-12] MEDS: LACTATED RINGERS 1,000 ML IV SCH (22:08)
[2021-08-12] MEDS: HYDROmorphone 1 MG/ML 1 ML SYRINGE IVP PRN (22:13)
--- NOTE | 2021-08-12 23:11 | PN ---
PROGRESS NOTE DATE OF SERVICE: 08/12/2021 REASON FOR FOLLOWUP: Infected sacral pressure ulcer and UTI. INTERVAL HISTORY: The patient was seen on rounds this morning. The patient has been running a low-grade fever of 99.9. The patient is feeling slightly better. The patient denies having any chest pain, shortness of breath or cough. No abdominal pain or worsening pain to the sacral wound area. PHYSICAL EXAMINATION: Blood pressure 131/71, pulse 81, temperature 99.2. He is 98% on room air. General description is a middle-aged male lying in bed in no distress. Respiratory system: Unlabored breathing, clear to auscultation anteriorly. Heart S1, S2. Regular rate and rhythm. Abdomen soft, no tenderness. Extremities no edema of the feet. LABS: Hemoglobin is 9.3, white count 20.1, creatinine 0.42. DIAGNOSTIC IMPRESSION AND PLAN: Patient with infected sacral pressure ulcer with Bacteroides fragilis bacteremia. Patient did have surgical debridement of his wound. Unfortunately no cultures were done. The patient is to continue with empiric Unasyn and vancomycin, as the patient was showing MRSA. Prognosis remains guarded. Continue with supportive care. MMODL / IJN: [id number] /
[2021-08-12] MEDS: HYDROcodone/APAP 5-325MG 1 EACH TAB PO PRN (23:54)
[2021-08-13] MEDS: AMPICILLIN-SULBACTAM 3 GM in SODIUM CHLORIDE 0.9% 100 ML IVPB SCH ×5 (00:58→23:17)
[2021-08-13] MEDS: DEXTROSE 5% IN WATER 1,000 ML IV SCH ×2 (05:25→11:12)
[2021-08-13] MEDS: HYDROmorphone 1 MG/ML 1 ML SYRINGE IVP PRN ×4 (05:26→21:15)
[2021-08-13] MEDS ORDERED: VANCOMYCIN TROUGH DUE 1 EACH MISC MISCELLANE ONE (07:00)
[2021-08-13 07:25] LABS: HCT 27.8 % (39.0-53.0); HGB 8.8 gm/dL (13.0-17.5); MCHC 31.6 g/dL (31.0-37.0); MCV 98.1 fL (80.0-100.0); Mean Platelet Volume 8.1; Platelet Count 445 k/uL (150-450); RBC 2.83 m/uL (4.30-5.90); RDW 13.2 % (11.5-15.5); WBC 20.6 k/uL (3.8-10.6)
[2021-08-13 07:41] LABS: ALT 83 U/L (4-49); AST 112 U/L (17-59); African American GFR (CKD) >90 (>60 ml/min/1.73 sqM); Albumin 1.9 g/dL (3.5-5.0); Albumin/Globulin Ratio 0.7; Alkaline Phosphatase 171 U/L (38-126); Anion Gap 5 mmol/L; Blood Urea Nitrogen 15 mg/dL (9-20); Calcium 8.1 mg/dL (8.4-10.2); Carbon Dioxide 24 mmol/L (22-30); Chloride 121 mmol/L (98-107); Globulin 2.8 g/dL; Glucose 136 mg/dL (74-99); Magnesium 2.2 mg/dL (1.6-2.3); Non-African American GFR(CKD) >90 (>60 ml/min/1.73 sqM); Phosphorus 3.7 mg/dL (2.5-4.5); Potassium 2.8 mmol/L (3.5-5.1); Sodium 150 mmol/L (137-145); Total Bilirubin 0.6 mg/dL (0.2-1.3); Total Protein 4.7 g/dL (6.3-8.2)
[2021-08-13] MEDS ORDERED: POTASSIUM CHLORIDE 20 MEQ in WATER FOR INJECTION 1 100ML.BAG IVPB STA (07:58)
[2021-08-13] MEDS: HEPARIN SODIUM,PORCINE/PF 5,000 UNIT/0.5 ML SYRINGE SQ SCH ×3 (08:00→23:17)
[2021-08-13] MEDS: VANCOMYCIN 1,250 MG in SODIUM CHLORIDE 0.9% 250 ML IVPB SCH ×3 (08:00→23:18)
--- NOTE | 2021-08-13 11:45 | P.PN ---
Subjective Progress Note Date: 08/13/21 CHIEF COMPLAINT: Sacral decubitus ulcer HISTORY OF PRESENT ILLNESS: Patient is status post debridement of infected decubitus ulcer. Patient appears more comfortable. Pain is controlled. Denies any nausea or vomiting. Afebrile. WBC 20.6 Hgb 8.8 sodium 150 potassium 2.8 positive blood culture PHYSICAL EXAM: VITAL SIGNS: Reviewed. GENERAL: Well-developed in no acute distress. HEENT: No sclera icterus. Extraocular movements grossly intact. Moist buccal mucosa. Head is atraumatic, normocephalic. ABDOMEN: Soft. Nondistended. Nontender. NEUROLOGIC: Alert and oriented. Cranial nerves II through XII grossly intact. ASSESSMENT: 1. Stage III infected sacral decubitus ulcer status post debridement 2. Hypokalemia 3. Hypernatremia 4. Sepsis due to large sacral decubitus ulcer 5. History of adrenaleukodystrophy PLAN: -Consult wound care service -manager asset management arranging specialty mattress. Patient will require a specialty mattress due to his stage III decubitus ulcer and requirements of keeping pressure off of the ulcer -Continue IV antibiotics per ID service -Continue to replace potassium -Hypernatremia management per medicine service -Continue regular diet Physician Structural Steel Worker Apprentice note has been reviewed by physician. Signing provider agrees with the documented findings, assessment, and plan of care. Objective - Vital Signs Vital signs: Vital Signs Temp 98.4 F 08/13/21 04:40 Pulse 67 08/13/21 04:40 Resp 16 08/12/21 21:45 BP 121/64 08/13/21 04:40 Pulse Ox 96 08/13/21 04:40 Intake & Output 08/12/21 08/13/21 08/13/21 18:59 06:59 18:59 Intake Total 1450 2370 Output Total 1000 603 Balance 450 1767 Intake: IV 200 Intake, IV Titration 1450 1450 Amount Ampicillin-Sulbactam 3 gm 100 200 In Sodium Chloride 0.9% 100 ml @ 200 mls/hr IVPB Q6HR [facility] Rx#:[id number] Dextrose 5% in Water 1, 900 900 000 ml @ 75 mls/hr IV . [id number] [facility] Rx#:[id number] Potassium Chloride 10 meq 100 In Water For Injection 1 100ml.bag @ 100 mls/hr IVPB ONCE [facility] Rx#: [id number] Potassium Chloride 10 meq 100 100 In Water For Injection 1 100ml.bag @ 100 mls/hr IVPB Q1H [facility] Rx#: [id number] Vancomycin 1,250 mg In 250 250 Sodium Chloride 0.9% 250 ml @ 125 mls/hr IVPB Q8HR [facility] Rx#:[id number] Oral 720 Output: Urine 1000 600 Estimated Blood Loss 3 Other: Voiding Method Indwelling Catheter Indwelling Catheter Indwelling Catheter - Labs CBC & Chem 7: 08/13/21 06:36 08/13/21 06:36 Labs: Abnormal Lab Results - Last 24 Hours (Table) 08/13/21 08/13/21 Range/Units 06:36 06:36 WBC 20.6 H (3.8-10.6) k/uL RBC 2.83 L (4.30-5.90) m/uL Hgb 8.8 L (13.0-17.5) gm/dL Hct 27.8 L (39.0-53.0) % Sodium 150 H (137-145) mmol/L Potassium 2.8 L (3.5-5.1) mmol/L Chloride 121 H (98-107) mmol/L Creatinine 0.42 L (0.66-1.25) mg/dL Glucose 136 H (74-99) mg/dL Calcium 8.1 L (8.4-10.2) mg/dL AST 112 H (17-59) U/L ALT 83 H (4-49) U/L Alkaline Phosphatase 171 H (38-126) U/L Total Protein 4.7 L (6.3-8.2) g/dL Albumin 1.9 L (3.5-5.0) g/dL Microbiology - Last 24 Hours (Table) 08/12/21 20:15 Wound Culture - Preliminary Back 08/12/21 20:15 Tissue Culture - Preliminary Back 08/09/21 23:20 Blood Culture Gram Stain - Preliminary Blood Blood Culture - Final Anaerobic Gm Negative Bacilli 08/09/21 23:10 Urine Culture - Final Urine,Voided Methicillin resist S. aureus
[2021-08-13] MEDS: POTASSIUM CHLORIDE ER 20 MEQ TAB.ER PO SCH ×4 (12:21→23:17)
--- NOTE | 2021-08-13 12:23 | P.CONS ---
History of Present Illness - Reason for Consult Consult date: 08/13/21 wound care - History of Present Illness Is a 55-year-old patient being seen by the wound care center on [address] for a nonhealing sacral ulceration pressure wound stage IV. Patient underwent a surgical debridement with Dr. Cooley yesterday. Currently they're utilizing a wet to dry Kerlix to the site. The ulceration measures approximately 20 x 15 x 3 cm. There is significant amount of slough and eschar still present within the wound bed. Initially thought was to apply and negative pressure wound VAC however due sufficient granulation seen within the wound bed to support a wound VAC application we will utilize Santyl at this time. 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 She isn't every day smoker. Denies diabetes. Review Of Systems: Constitutional: No fever, no chills, no night sweats. No weight change. No weakness, fatigue or lethargy. No daytime sleepiness. Integumentary:reports wounds, no lesions. No rash or pruritus. No unusual bruising. No change in hair or nails. Physical exam: General Appearance: Alert, cooperative, no distress, appears stated age. Skin: See HPI all other Skin color, texture, tugor normal, no rashes or lesions. Neurologic: Alert oriented x3 Assessment: 1. Pressure ulcer stage IV sacral Plan: 1.Apply sanytl, edge to edge a nickel in depth, saline moist gauze, and ABD. Secure with paper tape. Turn patient every 2 hours. Consult dietary for nutrition needs for chronic pressure ulcer. Patient would benefit from weekly wound care appointments. We would be happy to see him in the wound care center upon discharge. Thank you for the consultation any questions please contact the wound care center DNP note has been reviewed and discussed with Dr. Duncan and the impression and plan of care has been directed as dictated. Past Medical History Additional Past Medical History / Comment(s): adrenal leukomyopathy History of Any Multi-Drug Resistant Organisms: MRSA Year Discovered:: 08/09/21 MDRO Source:: MRSA URINE Additional Past Surgical History / Comment(s): unspecified abdominal surgey Past Psychological History: Depression Smoking Status: Current every day smoker Past Alcohol Use History: None Reported Past Drug Use History: Marijuana Medications and Allergies Home Medications Medication Instructions Recorded Confirmed Type Escitalopram [Lexapro] 10 mg PO DAILY 08/09/21 08/09/21 History Fluticasone Nasal [place] [Flonase 2 spray EA NOSTRIL DAILY 08/09/21 08/09/21 History Nasal [place]] HYDROcodone/APAP 10-325MG [[place] 1 tab PO BID PRN 08/09/21 08/09/21 History 10-325] Ibuprofen [Advil] 200 mg PO Q8HR PRN 08/09/21 08/09/21 History Ibuprofen [Motrin] 800 mg PO Q8H PRN 08/09/21 08/09/21 History Mirabegron [Myrbetriq] 50 mg PO DAILY 08/09/21 08/09/21 History Allergies Allergy/AdvReac Type Severity Reaction Status Date / Time aspirin AdvReac Abdominal Verified 08/11/21 13:29 Pain Physical Exam Vitals: Vital Signs Temp Pulse Pulse Resp BP BP Pulse Ox 08/13/21 04:40 98.4 F 67 121/64 96 08/12/21 23:45 79 112/65 92 L 08/12/21 22:45 81 117/67 08/12/21 22:15 83 135/73 95 08/12/21 21:45 79 16 120/69 96 08/12/21 21:30 83 132/73 95 08/12/21 21:20 81 16 131/71 98 08/12/21 21:15 84 132/73 94 L 08/12/21 21:02 71 16 142/68 98 08/12/21 21:00 99.2 F 88 16 121/72 93 L 08/12/21 20:45 73 16 135/74 98 08/12/21 20:34 98.2 F 80 14 154/88 98 08/12/21 13:45 98.5 F 72 20 126/72 94 L Intake and Output 08/12/21 08/13/21 08/13/21 22:59 06:59 14:59 Intake Total 1890 1930 Output Total 203 400 Balance 1687 1530 Intake: IV 200 Intake, IV Titration 1450 1450 Amount Ampicillin-Sulbactam 3 gm 100 200 In Sodium Chloride 0.9% 100 ml @ 200 mls/hr IVPB Q6HR [facility] Rx#:[id number] Dextrose 5% in Water 1, 900 900 000 ml @ 75 mls/hr IV . [id number] [facility] Rx#:[id number] Potassium Chloride 10 meq 100 In Water For Injection 1 100ml.bag @ 100 mls/hr IVPB [facility] Rx#: [id number] Potassium Chloride 10 meq 100 100 In Water For Injection 1 100ml.bag @ 100 mls/hr IVPB Q1H [facility] Rx#: [id number] Vancomycin 1,250 mg In 250 250 Sodium Chloride 0.9% 250 ml @ 125 mls/hr IVPB Q8HR [facility] Rx#:[id number] Oral 240 480 Output: Urine 200 400 Estimated Blood Loss 3 Other: Voiding Method Indwelling Catheter Indwelling Catheter Weight 61.235 kg Results CBC & Chem 7: 08/13/21 06:36 08/13/21 06:36 Labs: Abnormal Lab Results - Last 24 Hours (Table) 08/13/21 08/13/21 Range/Units 06:36 06:36 WBC 20.6 H (3.8-10.6) k/uL RBC 2.83 L (4.30-5.90) m/uL Hgb 8.8 L (13.0-17.5) gm/dL Hct 27.8 L (39.0-53.0) % Sodium 150 H (137-145) mmol/L Potassium 2.8 L (3.5-5.1) mmol/L Chloride 121 H (98-107) mmol/L Creatinine 0.42 L (0.66-1.25) mg/dL Glucose 136 H (74-99) mg/dL Calcium 8.1 L (8.4-10.2) mg/dL AST 112 H (17-59) U/L ALT 83 H (4-49) U/L Alkaline Phosphatase 171 H (38-126) U/L Total Protein 4.7 L (6.3-8.2) g/dL Albumin 1.9 L (3.5-5.0) g/dL Microbiology - Last 24 Hours (Table) 08/12/21 20:15 Wound Culture - Preliminary Back 08/12/21 20:15 Tissue Culture - Preliminary Back 08/09/21 23:20 Blood Culture Gram Stain - Preliminary Blood Blood Culture - Final Anaerobic Gm Negative Bacilli 08/09/21 23:10 Urine Culture - Final Urine,Voided Methicillin resist S. aureus Assessment and Plan (1) Pressure ulcer of sacral region, stage 4 Current Visit: Yes Status: Acute Code(s): L89.154 - PRESSURE ULCER OF SACRAL REGION, STAGE 4 SNOMED Code(s): 582689701
[2021-08-13] MEDS ORDERED: POTASSIUM CHLORIDE 20 MEQ in WATER FOR INJECTION 1 100ML.BAG IVPB ONE (13:00)
[2021-08-13] MEDS: COLLAGENASE 250 UNIT/GM OINTMENT 30 GM TUBE TOPICAL SCH (15:57)
--- NOTE | 2021-08-13 18:31 | PN ---
PROGRESS NOTE DATE OF SERVICE: 08/13/2021 REASON FOR FOLLOWUP: Infected sacral pressure ulcer and catheter-associated UTI. INTERVAL HISTORY: The patient is afebrile. The patient is breathing comfortably. No chest pain, shortness of breath or cough. No abdominal pain or worsening pain in the sacral wound area. PHYSICAL EXAMINATION: Blood pressure 129/67, pulse of 70, temperature 97.9. He is 95% on room air. General description is a middle-aged male lying in bed in no distress. Respiratory system: Unlabored breathing, clear to auscultation anteriorly. Heart S1, S2. Regular rate and rhythm. Abdomen soft, no tenderness. Extremities no edema of the feet. LABS: Hemoglobin is 8.9, white count 20.6, creatinine 0.42. DIAGNOSTIC IMPRESSION AND PLAN: Patient admitted to hospital with sepsis which is multifactorial in this patient with an infected sacral pressure ulcer, status post debridement. Those cultures are pending. Did have anaerobes bacteremia with MRSA UTI. Patient is covered with Unasyn and vancomycin. That will be continued for now while monitoring clinical course closely. Continue with supportive care. MMODL / IJN: [id number] /
[2021-08-13] MEDS: HYDROcodone/APAP 5-325MG 1 EACH TAB PO PRN (21:14)
[2021-08-13] MEDS: LACTATED RINGERS 1,000 ML IV SCH (22:05)
[2021-08-14] MEDS: AMPICILLIN-SULBACTAM 3 GM in SODIUM CHLORIDE 0.9% 100 ML IVPB SCH ×3 (05:21→18:38)
[2021-08-14] MEDS: HYDROmorphone 1 MG/ML 1 ML SYRINGE IVP PRN (08:23)
[2021-08-14] MEDS: VANCOMYCIN 1,250 MG in SODIUM CHLORIDE 0.9% 250 ML IVPB SCH ×2 (08:23→15:40)
[2021-08-14] MEDS: HEPARIN SODIUM,PORCINE/PF 5,000 UNIT/0.5 ML SYRINGE SQ SCH ×2 (08:23→15:40)
[2021-08-14] MEDS: COLLAGENASE 250 UNIT/GM OINTMENT 30 GM TUBE TOPICAL SCH (08:24)
[2021-08-14] MEDS: DEXTROSE 5% IN WATER 1,000 ML IV SCH (08:25)
[2021-08-14 08:32] LABS: ALT 90 U/L (4-49); AST 96 U/L (17-59); African American GFR (CKD) >90 (>60 ml/min/1.73 sqM); Albumin 1.9 g/dL (3.5-5.0); Albumin/Globulin Ratio 0.7; Alkaline Phosphatase 193 U/L (38-126); Anion Gap 3 mmol/L; Blood Urea Nitrogen 12 mg/dL (9-20); Calcium 7.7 mg/dL (8.4-10.2); Carbon Dioxide 23 mmol/L (22-30); Chloride 113 mmol/L (98-107); Globulin 2.6 g/dL; Glucose 121 mg/dL (74-99); Non-African American GFR(CKD) >90 (>60 ml/min/1.73 sqM); Sodium 139 mmol/L (137-145); Total Bilirubin 0.8 mg/dL (0.2-1.3); Total Protein 4.5 g/dL (6.3-8.2)
[2021-08-14] MEDS ORDERED: POTASSIUM CHLORIDE 20 MEQ in WATER FOR INJECTION 1 100ML.BAG IVPB SCH (09:00)
--- NOTE | 2021-08-14 11:06 | P.PN ---
Subjective Progress Note Date: 08/14/21 Principal diagnosis: Decubitus ulcer Patient has no new complaints. He is postop day 2 from decubitus debridement. T-max 99.8. CBC from today is pending. Denies pain. Objective - Vital Signs Vital signs: Vital Signs Temp 98.4 F 08/14/21 04:23 Pulse 75 08/14/21 04:23 Resp 16 08/14/21 04:23 BP 109/72 08/14/21 04:23 Pulse Ox 94 L 08/14/21 07:58 Intake & Output 08/13/21 08/14/21 08/14/21 18:59 06:59 18:59 Intake Total 600 1430 Output Total 600 400 Balance 0 1030 Weight 61.235 kg Intake: Intake, IV Titration 600 450 Amount Ampicillin-Sulbactam 3 gm 200 In Sodium Chloride 0.9% 100 ml @ 200 mls/hr IVPB Q6HR [facility] Rx#:[id number] Dextrose 5% in Water 1, 600 000 ml @ 50 mls/hr IV . Q20H [facility] Rx#:[id number] Vancomycin 1,250 mg In 250 Sodium Chloride 0.9% 250 ml @ 125 mls/hr IVPB Q8HR [facility] Rx#:[id number] Oral 980 Output: Urine 600 400 Other: Voiding Method Indwelling Catheter Indwelling Catheter Indwelling Catheter # Bowel Movements 1 - Exam Single decubitus dressing in place, minimal tenderness - Labs CBC & Chem 7: 08/13/21 06:36 08/14/21 07:33 Labs: Abnormal Lab Results - Last 24 Hours (Table) 08/14/21 Range/Units 07:33 Chloride 113 H (98-107) mmol/L Creatinine 0.42 L (0.66-1.25) mg/dL Glucose 121 H (74-99) mg/dL Calcium 7.7 L (8.4-10.2) mg/dL AST 96 H (17-59) U/L ALT 90 H (4-49) U/L Alkaline Phosphatase 193 H (38-126) U/L Total Protein 4.5 L (6.3-8.2) g/dL Albumin 1.9 L (3.5-5.0) g/dL Microbiology - Last 24 Hours (Table) 08/12/21 20:15 Gram Stain - Preliminary Back Wound Culture - Preliminary 08/12/21 20:15 Gram Stain - Preliminary Back Tissue Culture - Preliminary Assessment and Plan (1) Pressure ulcer of sacral region, stage 4 Narrative/Plan: Continue local wound care to sacral decubitus ulcer post-debridement. Continue antibiotics per infectious disease. Continue offloading. Encourage protein intake. Current Visit: Yes Status: Acute Code(s): L89.154 - PRESSURE ULCER OF SACRAL REGION, STAGE 4 SNOMED Code(s): 068161514
--- NOTE | 2021-08-14 11:28 | P.PN ---
Subjective Progress Note Date: 08/14/21 Patient seen and examined at bedside. Cultures grew MRSA from his wound. Infectious disease following. Per patient is starting to feel better. He shouldn't has been afebrile within the past 24 hours. Vitals are stable. Objective - Vital Signs Vital signs: Vital Signs Temp 98.4 F 08/14/21 04:23 Pulse 75 08/14/21 04:23 Resp 16 08/14/21 04:23 BP 109/72 08/14/21 04:23 Pulse Ox 94 L 08/14/21 07:58 Intake & Output 08/13/21 08/14/21 08/14/21 18:59 06:59 18:59 Intake Total 600 1430 Output Total 600 400 Balance 0 1030 Weight 61.235 kg Intake: Intake, IV Titration 600 450 Amount Ampicillin-Sulbactam 3 gm 200 In Sodium Chloride 0.9% 100 ml @ 200 mls/hr IVPB Q6HR [facility] Rx#:[id number] Dextrose 5% in Water 1, 600 000 ml @ 50 mls/hr IV . Q20H [facility] Rx#:[id number] Vancomycin 1,250 mg In 250 Sodium Chloride 0.9% 250 ml @ 125 mls/hr IVPB Q8HR [facility] Rx#:[id number] Oral 980 Output: Urine 600 400 Other: Voiding Method Indwelling Catheter Indwelling Catheter Indwelling Catheter # Bowel Movements 1 - Exam General: [ Cachectic], [no distress], [appears at stated age] Derm: [warm], [dry] Head: [atraumatic], [normocephalic], [symmetric] Eyes: [EOMI], [no lid lag], [anicteric sclera] Mouth: [no lip lesion], [mucus membranes moist] Cardiovascular: [S1S2 reg], [no murmur], [positive posterior tibial pulse bilateral], Lungs: [CTA bilateral], [no rhonchi, no rales] , [no accessory muscle use] Abdominal: [soft], [ nontender to palpation], [no guarding], [no appreciable organomegaly] Ext: [no gross muscle atrophy], [no edema], [no contractures] Neuro: [ CN II-XI grossly intact], [no focal neuro deficits] Psych: [Alert], [oriented], [appropriate affect] - Labs CBC & Chem 7: 08/13/21 06:36 08/14/21 07:33 Labs: Abnormal Lab Results - Last 24 Hours (Table) 08/14/21 Range/Units 07:33 Chloride 113 H (98-107) mmol/L Creatinine 0.42 L (0.66-1.25) mg/dL Glucose 121 H (74-99) mg/dL Calcium 7.7 L (8.4-10.2) mg/dL AST 96 H (17-59) U/L ALT 90 H (4-49) U/L Alkaline Phosphatase 193 H (38-126) U/L Total Protein 4.5 L (6.3-8.2) g/dL Albumin 1.9 L (3.5-5.0) g/dL Microbiology - Last 24 Hours (Table) 08/12/21 20:15 Gram Stain - Preliminary Back Wound Culture - Preliminary 08/12/21 20:15 Gram Stain - Preliminary Back Tissue Culture - Preliminary Assessment and Plan Plan: Sepsis secondary to large unstageable sacral ulcer with MRSA UTI and bacteremia -Blood cultures positive for bacteroides fragilis -Infectious disease recommendations appreciated antibiotic Unasyn and Vanco -Status post debridement by surgery -morphine for pain -Continue with IV fluids Gram-negative bacteremia -BCs with: Gram-negative bacilli as well as Bacteroides species -ID following - Abx Unasyn MRSA UTI IV Abx Vanco Hypokalemia -Replace and monitor Thrombocytosis, suspected reactive with dehydration and acute stressor -Monitor for now DVT prophylaxis -Heparin subcu CODE STATUS: Full Code Discussed with: patient, Anticipated discharge date: 2-[address]: Home Time with Patient: Greater than 30
[2021-08-14] MEDS: HYDROcodone/APAP 5-325MG 1 EACH TAB PO PRN (17:29)
--- NOTE | 2021-08-14 22:06 | PN ---
PROGRESS NOTE DATE OF SERVICE: 08/14/2021 REASON FOR FOLLOWUP: Infected sacral pressure ulcer and bacteroides bacteremia. INTERVAL HISTORY: The patient is afebrile. The patient has been breathing comfortably. The patient denies having any chest pain or shortness of breath or cough. No abdominal pain or diarrhea. PHYSICAL EXAMINATION: Blood pressure 113/73 with a pulse of 78, temperature 98.6. He is 95% on room air. General description is a middle-aged male lying in bed in no distress. Respiratory system: Unlabored breathing, clear to auscultation anteriorly. Heart S1, S2. Regular rate and rhythm. Abdomen soft, no tenderness. LABS: Creatinine 0.42. DIAGNOSTIC IMPRESSION AND PLAN: Patient with infected sacral pressure ulcer in this patient who did have bacteroides bacteremia; could be related to his infected sacral pressure ulcer. However, underlying abdominal source will need to be ruled out as well. We will obtain a CT of abdomen and pelvis with oral contrast. Continue with Unasyn and vancomycin. He will get a PICC line for outpatient IV antibiotics. Continue with supportive care. MMODL / IJN: [id number] /
[2021-08-15] MEDS: AMPICILLIN-SULBACTAM 3 GM in SODIUM CHLORIDE 0.9% 100 ML IVPB SCH ×4 (00:03→17:53)
[2021-08-15] MEDS: VANCOMYCIN 1,250 MG in SODIUM CHLORIDE 0.9% 250 ML IVPB SCH ×3 (00:04→15:47)
[2021-08-15] MEDS: HEPARIN SODIUM,PORCINE/PF 5,000 UNIT/0.5 ML SYRINGE SQ SCH ×3 (00:04→16:08)
[2021-08-15] MEDS: LACTATED RINGERS 1,000 ML IV SCH (00:39)
[2021-08-15] MEDS ORDERED: VANCOMYCIN TROUGH DUE 1 EACH MISC MISCELLANE ONE (07:00)
[2021-08-15 09:28] LABS: Basophils # (A) 0.1 k/uL (0-0.2); Basophils % (A) 1 %; Eosinophils # (A) 0.1 k/uL (0-0.7); Eosinophils % (A) 1 %; HCT 27.1 % (39.0-53.0); HGB 8.8 gm/dL (13.0-17.5); Lymphocytes # (A) 1.4 k/uL (1.0-4.8); Lymphocytes % (A) 7 %; MCH 32.4 pg (25.0-35.0); MCHC 32.6 g/dL (31.0-37.0); MCV 99.4 fL (80.0-100.0); Mean Platelet Volume 9.1; Monocytes # (A) 0.4 k/uL (0-1.0); Monocytes % (A) 2 %; Neutrophils % (A) 88 %; Platelet Count 458 k/uL (150-450); RBC 2.72 m/uL (4.30-5.90); RDW 14.2 % (11.5-15.5); WBC 19.3 k/uL (3.8-10.6)
--- NOTE | 2021-08-15 09:34 | P.PN ---
Subjective Progress Note Date: 08/15/21 Patient seen and examined at bedside. Cultures grew MRSA from his wound. Bacteroides fragilis grew in blood cultures. There is concern for an abdominal source, CT ABD/pelvis pending. Infectious disease following. Patient did not want to talk much today. He wanted to sleep. Patient denies chest pain, sh ortness of breath, fever, or chills. He has been afebrile within the past 24 hours. Vitals are stable. Objective - Vital Signs Vital signs: Vital Signs Temp 97.6 F 08/15/21 08:21 Pulse 75 08/15/21 08:21 Resp 16 08/15/21 08:21 BP 112/66 08/15/21 08:21 Pulse Ox 94 L 08/15/21 08:21 Intake & Output 08/14/21 08/15/21 08/15/21 18:59 06:59 18:59 Intake Total 400 650 Output Total 1400 1200 Balance 400 -750 -1200 Intake: Intake, IV Titration 400 650 Amount Ampicillin-Sulbactam 3 gm 200 In Sodium Chloride 0.9% 100 ml @ 200 mls/hr IVPB Q6HR [facility] Rx#:[id number] Dextrose 5% in Water 1, 400 200 000 ml @ 50 mls/hr IV . Q20H [facility] Rx#:[id number] Vancomycin 1,250 mg In 250 Sodium Chloride 0.9% 250 ml @ 125 mls/hr IVPB Q8HR [facility] Rx#:[id number] Output: Urine 1400 1200 Other: Voiding Method Indwelling Catheter Indwelling Catheter Indwelling Catheter # Bowel Movements 1 1 - Exam General: [ Cachectic], [no distress], [appears at stated age] Derm: [warm], [dry] Head: [atraumatic], [normocephalic], [symmetric] Eyes: [EOMI], [no lid lag], [anicteric sclera] Mouth: [no lip lesion], [mucus membranes moist] Cardiovascular: [S1S2 reg], [no murmur], [positive posterior tibial pulse bilateral], Lungs: [CTA bilateral], [no rhonchi, no rales] , [no accessory muscle use] Abdominal: [soft], [ nontender to palpation], [no guarding], [no appreciable organomegaly] Ext: [no gross muscle atrophy], [no edema], [no contractures] Neuro: [ CN II-XI grossly intact], [no focal neuro deficits] Psych: [Alert], [oriented], [appropriate affect.] - Labs CBC & Chem 7: 08/13/21 06:36 08/14/21 07:33 Labs: Microbiology - Last 24 Hours (Table) 08/12/21 20:15 Gram Stain - Preliminary Back Tissue Culture - Preliminary Presumptive MRSA Assessment and Plan Plan: Sepsis secondary to large unstageable sacral ulcer with MRSA UTI and Bacteroides bacteremia -CT abd/pelvis pending concern for abdominal source re: bacteremia -Infectious disease recommendations appreciated antibiotic Unasyn and Vanco -Status post debridement by surgery -morphine for pain -Continue with IV fluids Gram-negative bacteremia -BCs with: Gram-negative bacilli as well as Bacteroides species -ID following - Abx Unasyn MRSA UTI IV Abx Vanco Thrombocytosis, suspected reactive with dehydration and acute stressor -Monitor for now DVT prophylaxis -Heparin subcu CODE STATUS: Full Code Discussed with: patient, Anticipated discharge date: 2-3 days
[2021-08-15] MEDS: IOPAMIDOL CONTRAST (ORAL USE) VIAL PO PRN ×2 (10:00→11:10)
[2021-08-15 10:57] LABS: ALT 54 U/L (4-49); AST 49 U/L (17-59); African American GFR (CKD) >90 (>60 ml/min/1.73 sqM); Albumin/Globulin Ratio 0.7; Alkaline Phosphatase 158 U/L (38-126); Anion Gap 7 mmol/L; Blood Urea Nitrogen 9 mg/dL (9-20); Calcium 7.4 mg/dL (8.4-10.2); Carbon Dioxide 18 mmol/L (22-30); Chloride 108 mmol/L (98-107); Glucose 103 mg/dL (74-99); Non-African American GFR(CKD) >90 (>60 ml/min/1.73 sqM); Potassium 3.7 mmol/L (3.5-5.1); Sodium 133 mmol/L (137-145); Total Bilirubin 0.7 mg/dL (0.2-1.3)
[2021-08-15] MEDS: IPRATROPIUM-ALBUTEROL 3 ML NEB INHALATION SCH ×3 (11:17→20:15)
--- NOTE | 2021-08-15 11:18 | XR ---
EXAMINATION TYPE: XR chest 2V DATE OF EXAM: 08/15/2021 COMPARISON: 08/09/2021 INDICATION: Congestion TECHNIQUE: Frontal and lateral views of the chest are obtained. FINDINGS: The heart size is normal. The pulmonary vasculature is normal. Diffuse increased central lung markings are present bilaterally correlate for noncardiogenic pulmonar y edema and volume overload. Consider viral pneumonia. Atypical pneumonia should be considered. On t he lateral projection posterior pleural effusions are evident. IMPRESSION: 1. Diffuse central increased lung markings. Differential diagnosis could include volume overload, pul monary edema, viral pneumonia, atypical pneumonia. Follow up exams are recommended. 2. Small superior bilateral pleural effusions.
--- NOTE | 2021-08-15 12:02 | CT ---
EXAMINATION TYPE: CT abdomen pelvis w con DATE OF EXAM: 08/15/2021 COMPARISON: None INDICATION: Infected decubitus ulcer DLP: 548.5 mGycm, Automated exposure control for dose reduction was used. CONTRAST: 100 mL of Isovue 300. Study performed with Oral Contrast TECHNIQUE: Axial images were obtained from above the diaphragm to the pubic rami in the axial plane a t 5 mm thick sections. Reconstructed images are reviewed on the computer in the coronal plane. FINDINGS: Limited CT sections are obtained the lung bases. There are some patchy infiltrates at the lung bases . Infectious etiologies including atypical pneumonia should be considered. Small bilateral pleural ef fusions are present.. CT ABDOMEN: Liver: Normal Spleen: Normal Pancreas: Normal Adrenal glands: The adrenal glands are normal. Gallbladder: Partially decompressed but otherwise unremarkable. Kidneys: No masses are evident. No hydronephrosis is present. No cysts are present. There is a 0.6 cm nonobstructing calcification within the mid left kidney. Aorta: Vascular calcification is within the aorta. Inferior vena cava: Normal. CT PELVIS: Focal small amounts of air within the subcutaneous tissues superficial to the paraspinal f ascial line. An abscess should be considered. This may measure 9.3 x 1.6 cm, example image series 5 i mage 38. This extends to the right flank and covers a craniocaudal dimension from L1 through L5 withi n the midline before extending into the right flank.. Soft tissue wound at the level of the sacrum ap pears to be present. The adjacent osseous structures appear to be intact. Loops of bowel within the abdomen and pelvis are normal. Scattered diverticuli within the sigmoid c olon. There are loops of bowel which are incompletely distended or lack oral contrast limiting their evaluation. Appendix: Not identified. No suspicious dilated tubular structure or inflammatory change is evident. Clinical management of any suspected appendicitis will be required. Urinary bladder: Decompressed with a Ovalles catheter. Genitourinary structures: Prostate appears unremarkable Osseous structures: No suspicious lytic or sclerotic lesions. IMPRESSIONS: 1. Some nonspecific scattered infiltrates at the right lung base. Correlate for atypical pneumonia. 2. Small bilateral pleural effusions. 3. Subcutaneous air within the paraspinal region to the right and right flank. Correlate for posterio r abscess with gas-forming organism. This does not appear to involve the paraspinal muscular level. 4. Decubitus wound at the level of the sacrum. The adjacent sacrum appears intact. Abscess formation may extend superiorly from this wound. A Red level critical message alert has been initiated for Deandre Jain via the [employer] System on 08/15/2021 12:00 PM. This message alert has been sent to Deandre Jain via the preferences provided by the clinician for the receipt of Radiology Critical Findings. Message ID [id number].
--- NOTE | 2021-08-15 12:04 | P.PN ---
Subjective Progress Note Date: 08/15/21 Principal diagnosis: Decubitus ulcer Patient was out of the room when I came around on him today. He was down getting chest x-ray and CAT scan abdomen and pelvis. Per nursing he had no abdominal pain. Previous diarrhea had improved. Objective - Vital Signs Vital signs: Vital Signs Temp 97.6 F 08/15/21 08:21 Pulse 75 08/15/21 08:21 Resp 16 08/15/21 08:21 BP 112/66 08/15/21 08:21 Pulse Ox 94 L 08/15/21 08:21 Intake & Output 08/14/21 08/15/21 08/15/21 18:59 06:59 18:59 Intake Total 400 650 Output Total 1400 1200 Balance 400 -750 -1200 Intake: Intake, IV Titration 400 650 Amount Ampicillin-Sulbactam 3 gm 200 In Sodium Chloride 0.9% 100 ml @ 200 mls/hr IVPB Q6HR [facility] Rx#:[id number] Dextrose 5% in Water 1, 400 200 000 ml @ 50 mls/hr IV . Q20H [facility] Rx#:[id number] Vancomycin 1,250 mg In 250 Sodium Chloride 0.9% 250 ml @ 125 mls/hr IVPB Q8HR [facility] Rx#:[id number] Output: Urine 1400 1200 Other: Voiding Method Indwelling Catheter Indwelling Catheter Indwelling Catheter # Bowel Movements 1 1 - Exam Deferred - Labs CBC & Chem 7: 08/15/21 07:22 08/15/21 10:19 Labs: Abnormal Lab Results - Last 24 Hours (Table) 08/15/21 08/15/21 Range/Units 07:22 10:19 WBC 19.3 H (3.8-10.6) k/uL RBC 2.72 L (4.30-5.90) m/uL Hgb 8.8 L (13.0-17.5) gm/dL Hct 27.1 L (39.0-53.0) % Plt Count 458 H (150-450) k/uL Neutrophils # 17.0 H (1.3-7.7) k/uL Sodium 133 L (137-145) mmol/L Chloride 108 H (98-107) mmol/L Carbon Dioxide 18 L (22-30) mmol/L Creatinine 0.30 L (0.66-1.25) mg/dL Glucose 103 H (74-99) mg/dL Calcium 7.4 L (8.4-10.2) mg/dL ALT 54 H (4-49) U/L Alkaline Phosphatase 158 H (38-126) U/L Total Protein 5.0 L (6.3-8.2) g/dL Albumin 2.0 L (3.5-5.0) g/dL Microbiology - Last 24 Hours (Table) 08/12/21 20:15 Gram Stain - Preliminary Back Tissue Culture - Preliminary Presumptive MRSA Assessment and Plan (1) Pressure ulcer of sacral region, stage 4 Narrative/Plan: Continue antibiotics per infectious disease. Continue local wound care. Continue offloading and increasing protein intake. Will review chest x-ray and CAT scan findings. Current Visit: Yes Status: Acute Code(s): L89.154 - PRESSURE ULCER OF SACRAL REGION, STAGE 4 SNOMED Code(s): 196581431
[2021-08-15] MEDS: HYDROmorphone 1 MG/ML 1 ML SYRINGE IVP PRN (12:27)
[2021-08-15] MEDS: COLLAGENASE 250 UNIT/GM OINTMENT 30 GM TUBE TOPICAL SCH (12:29)
--- NOTE | 2021-08-15 23:24 | PN ---
PROGRESS NOTE DATE OF SERVICE: 08/15/2021 REASON FOR FOLLOWUP: Infected sacral pressure ulcer and UTI. INTERVAL HISTORY: The patient is afebrile. The patient is currently breathing comfortably on room air. The patient denies having any chest pain or shortness of breath or cough. No abdominal pain or any worsening pain to the sacral wound area. PHYSICAL EXAMINATION: Blood pressure 92/57, pulse of 87, temperature 99. He is 96% on room air. General description is a middle-aged male lying in bed in no distress. Respiratory system: Unlabored breathing, clear to auscultation anteriorly. Heart S1, S2. Regular rate and rhythm. Abdomen soft, no tenderness. Examination of sacral wound: Did have some slough tissue. No evidence of any redness crepitus was noted. LABS: Hemoglobin 8.2, white count of 19.6, creatinine 0.30. DIAGNOSTIC IMPRESSION AND PLAN: Patient with infected sacral pressure ulcer, status post debridement in this patient who also has evidence of bacteroides bacteremia with elevated white count. CT of abdomen and pelvis was done, which is reporting possible abscess to the back area. However, there was no crepitus or redness noticed. These findings have been discussed with the surgeon on the case and CT will be reevaluated by the radiologist. Patient is covered with Unasyn and vancomycin; to continue. Patient has been made n.p.o. for possible further surgical drainage. was at the bedside. Her questions and concerns were answered. MMODL / IJN: [id number] /
[2021-08-16] MEDS ORDERED: HEPARIN SODIUM,PORCINE 5,000 UNIT/ML 1 ML VIAL ONE
[2021-08-16] MEDS ORDERED: HYDROcodone/APAP 5-325MG 1 EACH TAB ONE (00:30)
[2021-08-16] MEDS: AMPICILLIN-SULBACTAM 3 GM in SODIUM CHLORIDE 0.9% 100 ML IVPB SCH ×5 (01:31→23:09)
[2021-08-16] MEDS: LACTATED RINGERS 1,000 ML IV SCH ×2 (01:31→19:17)
[2021-08-16] MEDS: VANCOMYCIN 1,250 MG in SODIUM CHLORIDE 0.9% 250 ML IVPB SCH ×4 (01:32→23:10)
[2021-08-16] MEDS: HEPARIN SODIUM,PORCINE/PF 5,000 UNIT/0.5 ML SYRINGE SQ SCH ×4 (01:32→23:09)
[2021-08-16] MEDS: COLLAGENASE 250 UNIT/GM OINTMENT 30 GM TUBE TOPICAL SCH ×2 (07:24→18:07)
[2021-08-16] MEDS: IPRATROPIUM-ALBUTEROL 3 ML NEB INHALATION SCH ×4 (07:37→18:59)
[2021-08-16 09:23] LABS: Basophils % (A) 0 %; Eosinophils # (A) 0.1 k/uL (0-0.7); Eosinophils % (A) 0 %; HCT 24.9 % (39.0-53.0); HGB 8.2 gm/dL (13.0-17.5); Lymphocytes # (A) 1.1 k/uL (1.0-4.8); Lymphocytes % (A) 8 %; MCH 31.6 pg (25.0-35.0); MCV 95.9 fL (80.0-100.0); Mean Platelet Volume 8.4; Monocytes # (A) 0.3 k/uL (0-1.0); Monocytes % (A) 3 %; Neutrophils # (A) 11.4 k/uL (1.3-7.7); Neutrophils % (A) 87 %; Platelet Count 495 k/uL (150-450); RDW 13.2 % (11.5-15.5); WBC 13.1 k/uL (3.8-10.6)
[2021-08-16 09:31] LABS: African American GFR (CKD) >90 (>60 ml/min/1.73 sqM); Anion Gap 3 mmol/L; Blood Urea Nitrogen 6 mg/dL (9-20); Calcium 7.1 mg/dL (8.4-10.2); Carbon Dioxide 23 mmol/L (22-30); Chloride 106 mmol/L (98-107); Glucose 105 mg/dL (74-99); Non-African American GFR(CKD) >90 (>60 ml/min/1.73 sqM); Potassium 3.1 mmol/L (3.5-5.1); Sodium 132 mmol/L (137-145)
[2021-08-16] MEDS: POTASSIUM CHLORIDE 10 MEQ in WATER FOR INJECTION 1 100ML.BAG IVPB SCH ×4 (11:19→19:16)
--- NOTE | 2021-08-16 15:37 | P.PN ---
Progress Note - Text Progress Note Date: 08/16/21 The patient was scheduled for a debridement of decubitus ulcer today. His potassium was 3.1. Given his comorbidities conditions anesthesia would like his potassium replaced prior to surgery. A she will be placed on potassium replacement protocol. We will reschedule his debridement for tomorrow.
--- NOTE | 2021-08-16 17:44 | PN ---
PROGRESS NOTE DATE OF SERVICE: 08/16/2021 REASON FOR FOLLOWUP: Infected sacral pressure ulcer with bacteremia and UTI. INTERVAL HISTORY: The patient is afebrile. He is currently breathing comfortably. No chest pain, shortness of breath or cough. No abdominal pain or worsening pain in the lower back area. PHYSICAL EXAMINATION: Blood pressure 120/68 with a pulse of 84, temperature 99.3. He is 96% on General description is a middle-aged male lying in bed in no distress. Respiratory system: Unlabored breathing, clear to auscultation anteriorly. Heart S1, S2. Regular rate and rhythm. Abdomen soft, no tenderness. LABS: Hemoglobin is 8. , white count down to 13.1, creatinine 0.43. CT was reviewed with the radiologist; did have evidence of abscess area. DIAGNOSTIC IMPRESSION AND PLAN: Patient with an infected sacral pressure ulcer with evidence of abscess superior to the affected sacral area, waiting for repeat I and D and repeat cultures. Patient is covered with Unasyn and vancomycin, which will be continued. Monitor clinical course closely. Continue with supportive care. MMODL / IJN: [id number] /
--- NOTE | 2021-08-16 18:12 | P.PN ---
Subjective Progress Note Date: 08/16/21 Hospital course: Patient is a 55-year-old male with a PMH of adrenoleukodystrophy, essentially bedbound who was brought into the emergency room by his for buttock ulcer, worsening mental status, and fever in 08/20/21. at this time patient was found to be septic with heart rate of 110, temperature 100.4F, and WBC count of 34.7. in addition patient was found to be significantly hypokalemic with potassium of 2.6. Urinalysis contaminated but concerning for positive for infection with findings of protein, ketones, blood, leukocytes, 16 RBCs, and 79 WBCs. patient was admitted under our services with consultation togeneral surgery and infectious disease. patient underwent debridement of sacral ulcer on 08/12/21 and tentative plan is for patient to go down for scheduled debridement later today in OR with Dr. Perez. Blood culture is positive for Bacterpodes fragillis, urinalysis positive for MRSA, and tissue Gram stain from sacral ulcer positive for MRSA and diphtheroid species. patient remains on IV antibiotics vancomycin and Unasyn. Physical exam: Patient seen and fully evaluated at the bedside. Patient awaiting to go down for scheduled debridement in OR today with Dr. Perez. Hypokalemia with potassium of 3.1, orders placed for replacement. Patient denies having any chest pain, shortness of breath, nausea, or vomiting. Plan of care discussed with at bedside, all questions answered at this time. Vital signs reviewed and stable. General: Nontoxic, no distress and appears chronically ill Derm: Skin warm and dry, normal coloration for ethnicity. Dressing in place to sacral/coccyx region. Head: Atraumatic, normocephalic and symmetric. very hard of hearing. Eyes: no lid lag, and anicteric sclera Mouth: no lip lesions, mucus membranes moist Cardiovascular: regular rate and rhythm with normal S1S2, no murmur, positive posterior tibial pulses bilaterally, and cap refill < 2 seconds. Lungs: Respirations even, regular, and unlabored on room air. Lungs CTA bilaterally, no rhonchi, no rales, no wheezing, and no accessory muscle usage. Abdominal: soft, nontender to palpation, no guarding, no appreciable organomegaly Ext: Bed bound, limited movement in BLE, sensation and movement intact to BUE. diffuse muscle atrophy, no contractures. Neuro: Speech clear, face symmetrical Psych: Alert and oriented to person, place, and situation. Appropriate and pleasant affect. Assessment and Plan of Care: Sepsis secondary to large unstageable sacral ulcer with tissue stain positive for MRSA diphtheroid species, MRSA UTI and Bacteroides fragillis bacteremia -CT abd/pelvis pending concern for abdominal source re: bacteremia -Blood culture is positive for Bacterpodes fragillis. -Urinalysis positive for MRSA -Tissue Gram stain from sacral ulcer positive for MRSA and diphtheroid species -Infectious disease following -Gen. surgery following -Patient underwent debridement of sacral ulcer on 08/12/21 and tentative plan is for patient to go down for scheduled debridement later today in OR with Dr. Perez. -symptomatic care and pain management -Turn every 2 hours and offload -Wound care -Continuation of IV antibiotics: Unasyn and vancomycin Hypokalemia with potassium of 3.1 -replaced, we will continue to monitor with repeat a.m. labs. Thrombocytosis, suspected reactive with dehydration and acute stressor -Monitor for now CODE STATUS: full code DVT prophylaxis: Heparin Discussed with: Pt, pt's , and RN Anticipated discharge date: Clinical course to determine Anticipated discharge place: Home A total of 45 minutes was spent on the care of this complex patient more than 50% of the time was spent in counseling and care coordination. Objective - Vital Signs Vital signs: Vital Signs Temp 98.6 F 08/16/21 05:00 Pulse 72 08/16/21 07:45 Resp 16 08/16/21 05:00 BP 100/59 08/16/21 05:00 Pulse Ox 94 L 08/16/21 05:00 Intake & Output 08/15/21 08/16/21 08/16/21 18:59 06:59 18:59 Output Total 1900 800 Balance -1900 -800 Output: Urine 1900 800 Other: Voiding Method Indwelling Catheter Indwelling Catheter # Bowel Movements 2 - Labs CBC & Chem 7: 08/16/21 08:49 08/16/21 08:49 Labs: Abnormal Lab Results - Last 24 Hours (Table) 08/15/21 08/15/21 Range/Units 07:22 10:19 WBC 19.3 H (3.8-10.6) k/uL RBC 2.72 L (4.30-5.90) m/uL Hgb 8.8 L (13.0-17.5) gm/dL Hct 27.1 L (39.0-53.0) % Plt Count 458 H (150-450) k/uL Neutrophils # 17.0 H (1.3-7.7) k/uL Sodium 133 L (137-145) mmol/L Chloride 108 H (98-107) mmol/L Carbon Dioxide 18 L (22-30) mmol/L Creatinine 0.30 L (0.66-1.25) mg/dL Glucose 103 H (74-99) mg/dL Calcium 7.4 L (8.4-10.2) mg/dL ALT 54 H (4-49) U/L Alkaline Phosphatase 158 H (38-126) U/L Total Protein 5.0 L (6.3-8.2) g/dL Albumin 2.0 L (3.5-5.0) g/dL Microbiology - Last 24 Hours (Table) 08/09/21 23:20 Blood Culture Gram Stain - Preliminary Blood Blood Culture - Preliminary Bacteroides fragilis 08/09/21 23:10 Blood Culture Gram Stain - Preliminary Blood Blood Culture - Final Bacteroides fragilis 08/12/21 20:15 Gram Stain - Final Back Wound Culture - Final 08/12/21 20:15 Gram Stain - Final Back Tissue Culture - Final Methicillin resist S. aureus Diphtheroid species
[2021-08-17] MEDS: AMPICILLIN-SULBACTAM 3 GM in SODIUM CHLORIDE 0.9% 100 ML IVPB SCH ×3 (05:45→20:04)
[2021-08-17 06:43] LABS: Basophils % (A) 0 %; Eosinophils # (A) 0.1 k/uL (0-0.7); Eosinophils % (A) 1 %; HCT 23.4 % (39.0-53.0); HGB 7.5 gm/dL (13.0-17.5); Lymphocytes % (A) 12 %; MCH 31.2 pg (25.0-35.0); MCV 97.5 fL (80.0-100.0); Mean Platelet Volume 8.2; Monocytes # (A) 0.4 k/uL (0-1.0); Monocytes % (A) 4 %; Neutrophils # (A) 7.2 k/uL (1.3-7.7); Neutrophils % (A) 80 %; Platelet Count 507 k/uL (150-450); RDW 13.2 % (11.5-15.5)
[2021-08-17 06:56] LABS: African American GFR (CKD) >90 (>60 ml/min/1.73 sqM); Anion Gap 3 mmol/L; Blood Urea Nitrogen 5 mg/dL (9-20); Calcium 7.2 mg/dL (8.4-10.2); Carbon Dioxide 21 mmol/L (22-30); Chloride 108 mmol/L (98-107); Glucose 100 mg/dL (74-99); Non-African American GFR(CKD) >90 (>60 ml/min/1.73 sqM); Sodium 132 mmol/L (137-145)
[2021-08-17] MEDS ORDERED: POTASSIUM CHLORIDE ER 20 MEQ TAB.ER PO STA (07:26)
[2021-08-17] MEDS: POTASSIUM CHLORIDE 10 MEQ in WATER FOR INJECTION 1 100ML.BAG IVPB SCH ×2 (07:43→08:53)
[2021-08-17] MEDS: VANCOMYCIN 1,250 MG in SODIUM CHLORIDE 0.9% 250 ML IVPB SCH ×2 (07:44→16:29)
[2021-08-17] MEDS: IPRATROPIUM-ALBUTEROL 3 ML NEB INHALATION SCH ×4 (08:37→19:53)
[2021-08-17] MEDS: HEPARIN SODIUM,PORCINE/PF 5,000 UNIT/0.5 ML SYRINGE SQ SCH ×2 (10:25→15:59)
[2021-08-17] MEDS ORDERED: IV FLUID CONTINUATION 1,000 ML IV ONE (10:40)
[2021-08-17] MEDS ORDERED: LIDOCAINE 1% INJ 10MG/ML (20 ML MDV) ONE (11:34)
[2021-08-17] MEDS ORDERED: .fentaNYL (PF) 50 MCG/ML 2 ML AMP ONE (11:34)
[2021-08-17] MEDS ORDERED: KETAMINE 10 MG/ML 20 ML VIAL ONE (11:34)
[2021-08-17] MEDS ORDERED: PHENYLEPHRINE-0.9% NACL SYG 1,000 MCG/10 ML SYRINGE ONE (11:34)
[2021-08-17] MEDS ORDERED: PROPOFOL 10 MG/ML 20 ML VIAL IV ONE (11:34)
--- NOTE | 2021-08-17 12:28 | P.OP ---
Date of Procedure: 08/17/21 Preoperative Diagnosis: Infected decubitus ulcer Postoperative Diagnosis: Infected decubitus ulcer Procedure(s) Performed: Debridement of infected decubitus ulcer Anesthesia: IVETTE Surgeon: Spencer Perez Estimated Blood Loss (ml): 20 Pathology: other (Deep tissue culture) Condition: stable Disposition: PACU Description of Procedure: The patient received general anesthesia. He was then placed prone on the operative table. His dressing was removed. His decubitus ulcer was seen. Patient had enlarged he was ulcer measuring approximately 20 x 20 cm. His coccyx could be seen in the wound. There was some purulent fluid in the superior portion of the ulcer. The skin was incised along the tunnel. A deep tissue culture was obtained. The ischemic skin and fat and muscle was debrided using electrocautery. The wound was then packed with wet-to-dry Kerlix. Patient tolerated procedure well. He was sent to recovery room room in stable condition
[2021-08-17] MEDS: ALPRAZolam 0.5 MG TAB PO PRN (14:30)
--- NOTE | 2021-08-17 17:57 | P.PN ---
Subjective Progress Note Date: 08/17/21 Hospital course: Patient is a 55-year-old male with a PMH of adrenoleukodystrophy, essentially bedbound who was brought into the emergency room by his for buttock ulcer, worsening mental status, and fever in 08/20/21. at this time patient was found to be septic with heart rate of 110, temperature 100.4F, and WBC count of 34.7. in addition patient was found to be significantly hypokalemic with potassium of 2.6. Urinalysis contaminated but concerning for positive for infection with findings of protein, ketones, blood, leukocytes, 16 RBCs, and 79 WBCs. patient was admitted under our services with consultation togeneral surgery and infectious disease. patient underwent debridement of sacral ulcer on 08/12/21 and tentative plan is for patient to go down for scheduled debridement later today in OR with Dr. Perez. Blood culture is positive for Bacterpodes fragillis, urinalysis positive for MRSA, and tissue Gram stain from sacral ulcer positive for MRSA and diphtheroid species. patient remains on IV antibiotics vancomycin and Unasyn. Physical exam: Patient seen and fully evaluated at the bedside. Patient awaiting to go down for scheduled debridement in OR today with Dr. Perez later today. Hypokalemia with potassium of 3.0 this morning and orders placed for oral and IV replacement. Patient reports feeling anxious over debridement and hospitalization and expressing wants to go home. Patient will likely need prolonged course of IV antibiotics upon discharge due to sacral ulcer with tissue stain positive for MRSA diphtheroid species, MRSA UTI and Bacteroides fragillis bacteremia. Patient denies having any chest pain, shortness of breath, nausea, or vomiting. Vital signs reviewed and stable. General: Nontoxic, no distress and appears chronically ill Derm: Skin warm and dry, normal coloration for ethnicity. Dressing in place to sacral/coccyx region. Head: Atraumatic, normocephalic and symmetric. very hard of hearing. Eyes: no lid lag, and anicteric sclera Mouth: no lip lesions, mucus membranes moist Cardiovascular: regular rate and rhythm with normal S1S2, no murmur, positive posterior tibial pulses bilaterally, and cap refill < 2 seconds. Lungs: Respirations even, regular, and unlabored on room air. Lungs CTA bilaterally, no rhonchi, no rales, no wheezing, and no accessory muscle usage. Abdominal: soft, nontender to palpation, no guarding, no appreciable organomegal y Ext: Bed bound, limited movement in BLE, sensation and movement intact to BUE. diffuse muscle atrophy, no contractures. Neuro: Speech clear, face symmetrical Psych: Alert and oriented to person, place, and situation. Appropriate and pleasant affect. Assessment and Plan of Care: Sepsis secondary to large unstageable sacral ulcer with tissue stain positive for MRSA diphtheroid species, MRSA UTI and Bacteroides fragillis bacteremia -CT abd/pelvis pending concern for abdominal source re: bacteremia -Blood culture is positive for Bacterpodes fragillis. -Urinalysis positive for MRSA -Tissue Gram stain from sacral ulcer positive for MRSA and diphtheroid species -Infectious disease following -Gen. surgery following -Patient underwent debridement of sacral ulcer on 08/12/21 and tentative plan is for patient to go down for scheduled debridement later today in OR with Dr. Perez once potassium has been replaced -symptomatic care and pain management -Turn every 2 hours and offload -Wound care -Continuation of IV antibiotics: Unasyn and vancomycin Hypokalemia with potassium of 3.0 -replaced, we will continue to monitor with repeat a.m. labs. Thrombocytosis, suspected reactive with dehydration and acute stressor -Monitor for now CODE STATUS: full code DVT prophylaxis: Heparin Discussed with: Pt and RN Anticipated discharge date: Clinical course to determine Anticipated discharge place: Home in care of with home care A total of 45 minutes was spent on the care of this complex patient more than 50% of the time was spent in counseling and care coordination. Objective - Vital Signs Vital signs: Vital Signs Temp 98.2 F 08/17/21 05:00 Pulse 78 08/17/21 05:00 Resp 18 08/17/21 05:00 BP 127/75 08/17/21 05:00 Pulse Ox 92 L 08/17/21 05:00 Intake & Output 08/16/21 08/17/21 08/17/21 18:59 06:59 18:59 Intake Total 750 670 Output Total 600 1000 Balance 150 -330 Intake: Intake, IV Titration 350 670 Amount Ampicillin-Sulbactam 3 gm 100 200 In Sodium Chloride 0.9% 100 ml @ 200 mls/hr IVPB Q6HR [facility] Rx#:[id number] IV Fluid Continuation 1, 120 000 ml @ 0 mls/hr IV .STWelVU -[facility] Rx#:[id number] Potassium Chloride 10 meq 100 In Water For Injection 1 100ml.bag @ 100 mls/hr IVPB Q1H [facility] Rx#: [id number] Vancomycin 1,250 mg In 250 250 Sodium Chloride 0.9% 250 ml @ 125 mls/hr IVPB Q8HR [facility] Rx#:[id number] Oral 400 Output: Urine 600 1000 Uretheral ([place]) 1000 Other: Voiding Method Indwelling Catheter Indwelling Catheter # Voids 1 - Labs CBC & Chem 7: 08/17/21 06:05 08/17/21 06:05 Labs: Abnormal Lab Results - Last 24 Hours (Table) 08/16/21 08/16/21 08/16/21 Range/Units 08:49 08:49 16:16 WBC 13.1 H (3.8-10.6) k/uL RBC 2.60 L (4.30-5.90) m/uL Hgb 8.2 L (13.0-17.5) gm/dL Hct 24.9 L (39.0-53.0) % Plt Count 495 H (150-450) k/uL Neutrophils # 11.4 H (1.3-7.7) k/uL Sodium 132 L (137-145) mmol/L Potassium 3.1 L 3.1 L (3.5-5.1) mmol/L Chloride (98-107) mmol/L Carbon Dioxide (22-30) mmol/L BUN 6 L (9-20) mg/dL Creatinine 0.43 L (0.66-1.25) mg/dL Glucose 105 H (74-99) mg/dL Calcium 7.1 L (8.4-10.2) mg/dL 08/17/21 08/17/21 Range/Units 06:05 06:05 WBC (3.8-10.6) k/uL RBC 2.40 L (4.30-5.90) m/uL Hgb 7.5 L (13.0-17.5) gm/dL Hct 23.4 L (39.0-53.0) % Plt Count 507 H (150-450) k/uL Neutrophils # (1.3-7.7) k/uL Sodium 132 L (137-145) mmol/L Potassium 3.0 L (3.5-5.1) mmol/L Chloride 108 H (98-107) mmol/L Carbon Dioxide 21 L (22-30) mmol/L BUN 5 L (9-20) mg/dL Creatinine 0.34 L (0.66-1.25) mg/dL Glucose 100 H (74-99) mg/dL Calcium 7.2 L (8.4-10.2) mg/dL
[2021-08-17] MEDS: NICOTINE 21MG/24HR PATCH TRANSDERM SCH (19:15)
[2021-08-17] MEDS: LACTATED RINGERS 1,000 ML IV SCH (20:05)
--- NOTE | 2021-08-17 22:12 | PN ---
PROGRESS NOTE OF SERVICE: 08/17/2021 REASON FOR FOLLOW UP: Extensive sacral pressure ulcer with secondary bacteremia. INTERVAL HISTORY: Patient was taken back to the OR status post further surgical debridement. evidence of extensive surgical wound and drainage of some purulent material. Repeat culture has been obtained. The patient tolerated the procedure. Denies any chest pain, shortness of breath or cough. No abdominal pain. PHYSICAL EXAMINATION: Blood pressure 135/78 with a pulse of 88, temperature 98.9. He is 93% on room air. General description is a middle-aged male lying in bed in no distress. Respiratory system: Unlabored breathing, clear to auscultation anteriorly. Heart S1, S2. Regular rate and rhythm. Abdomen soft, no tenderness. Extremities: No edema of the feet. LABS: Hemoglobin 7.5, white count 9.0, creatinine 0.34. DIAGNOSTIC IMPRESSION AND PLAN: Patient with extensive sacral pressure ulcer status post debridement x2. This patient did have bacteremia. A CT of abdomen and pelvis was negative for any intraabdominal pathology. The patient is currently covered with vancomycin and Unasyn. White count has normalized PICC line extensive local care as well as IV antibiotic therapy. May benefit from diverting colostomy as per discussion with surgical team to prevent continue swelling of his . Continue supportive care. MMODL / IJN: [id number] /
[2021-08-18] MEDS: AMPICILLIN-SULBACTAM 3 GM in SODIUM CHLORIDE 0.9% 100 ML IVPB SCH ×4 (01:15→19:42)
[2021-08-18] MEDS: HEPARIN SODIUM,PORCINE/PF 5,000 UNIT/0.5 ML SYRINGE SQ SCH ×3 (01:16→15:38)
[2021-08-18] MEDS: VANCOMYCIN 1,250 MG in SODIUM CHLORIDE 0.9% 250 ML IVPB SCH ×2 (02:01→08:39)
[2021-08-18] MEDS ORDERED: Potassium Replacement Protocol 1 EACH MISC MISCELLANE PRN (04:42)
[2021-08-18] MEDS: POTASSIUM CHLORIDE ER 20 MEQ TAB.ER PO SCH ×2 (05:23→06:22)
[2021-08-18] MEDS: LACTATED RINGERS 1,000 ML IV SCH (05:27)
[2021-08-18] MEDS ORDERED: VANCOMYCIN TROUGH DUE 1 EACH MISC MISCELLANE ONE (07:00)
[2021-08-18] MEDS: IPRATROPIUM-ALBUTEROL 3 ML NEB INHALATION SCH ×4 (07:21→20:01)
[2021-08-18 08:22] LABS: HCT 25.1 % (39.0-53.0); MCH 31.1 pg (25.0-35.0); MCV 97.3 fL (80.0-100.0); Mean Platelet Volume 8.1; Platelet Count 629 k/uL (150-450); RBC 2.58 m/uL (4.30-5.90); RDW 13.6 % (11.5-15.5); WBC 8.7 k/uL (3.8-10.6)
[2021-08-18 08:37] LABS: African American GFR (CKD) >90 (>60 ml/min/1.73 sqM); Anion Gap 6 mmol/L; Blood Urea Nitrogen 5 mg/dL (9-20); Calcium 7.2 mg/dL (8.4-10.2); Carbon Dioxide 21 mmol/L (22-30); Chloride 108 mmol/L (98-107); Glucose 93 mg/dL (74-99); Magnesium 2.1 mg/dL (1.6-2.3); Non-African American GFR(CKD) >90 (>60 ml/min/1.73 sqM); Potassium 3.5 mmol/L (3.5-5.1); Sodium 135 mmol/L (137-145)
[2021-08-18] MEDS: COLLAGENASE 250 UNIT/GM OINTMENT 30 GM TUBE TOPICAL SCH (08:40)
[2021-08-18] MEDS: NICOTINE 21MG/24HR PATCH TRANSDERM SCH (08:40)
--- NOTE | 2021-08-18 14:05 | P.PN ---
Subjective Progress Note Date: 08/18/21 Principal diagnosis: Patient feels weak Constitutional: No acute distress, conversant, pleasant Eyes: Anicteric sclerae, moist conjunctiva, no lid-lag PERRLA ENMT: NC/AT Oropharynx clear, no erythema, exudates Neck: Supple, FROM, no masses, or JVD No carotid bruits No thyromegaly Lungs: Clear to auscultation Clear to percussion Normal respiratory effort, no accessory muscle use Cardiovascular: Heart regular in rate and rhythm, No murmurs, gallops, or rubs No peripheral edema Abdominal: Soft Nontender, no guarding, rebound or rigidity Abdomen moving with respiration Normoactive bowel sounds No hepatomegaly, No splenomegaly No palpable mass No abdominal wall hernia noted Skin: Normal temperature, tone, texture, turgor No induration No subcutaneous nodules No rash, lesions No ulcers Extremities: No digital cyanosis No clubbing Pedal pulses intact and symmetrical Radial pulses intact and symmetrical Normal gait and station No calf tenderness Psychiatric:Alert and oriented to person, place and time Appropriate affect Intact judgement Neuro: Sepsis secondary to large unstageable sacral ulcer with tissue stain positive for MRSA diphtheroid species, MRSA UTI and Bacteroides fragillis bacteremia -CT abd/pelvis pending concern for abdominal source re: bacteremia -Blood culture is positive for Bacterpodes fragillis. -Urinalysis positive for MRSA -Tissue Gram stain from sacral ulcer positive for MRSA and diphtheroid species -Infectious disease following -Gen. surgery following -Patient underwent debridement of sacral ulcer on 08/12/21 and tentative plan is for patient to go down for scheduled debridement later today in OR with Dr. Perez once potassium has been replaced -symptomatic care and pain management -Turn every 2 hours and offload -Wound care -Continuation of IV antibiotics: Unasyn and vancomycin Hypokalemia with potassium of 3.0 -replaced, we will continue to monitor with repeat a.m. labs. Thrombocytosis, suspected reactive with dehydration and acute stressor -Monitor for now Overall stable continue IV antibiotics patient needs rehab discussed with the CODE STATUS: full code DVT prophylaxis: Heparin Discussed with: Pt and RN Anticipated discharge date: Clinical course to determine Anticipated discharge place: Home in care of with home care A total of 45 minutes was spent on the care of this complex patient more than 50% of the time was spent in counseling and care coordination. Objective - Vital Signs Vital signs: Vital Signs Temp 98.4 F 08/18/21 12:34 Pulse 94 08/18/21 12:34 Resp 18 08/18/21 12:34 BP 109/64 08/18/21 12:34 Pulse Ox 99 08/18/21 12:34 Intake & Output 08/17/21 08/18/21 08/18/21 18:59 06:59 18:59 Intake Total 500 425 Output Total 1310 1100 Balance -810 -675 Weight 61.235 kg Intake: IV 500 Intake, IV Titration 225 Amount Ampicillin-Sulbactam 3 gm 100 In Sodium Chloride 0.9% 100 ml @ 200 mls/hr IVPB Q6HR [facility] Rx#:[id number] Vancomycin 1,250 mg In 125 Sodium Chloride 0.9% 250 ml @ 125 mls/hr IVPB Q8HR [facility] Rx#:[id number] Oral 200 Output: Urine 1300 1100 Uretheral ([place]) 1100 Estimated Blood Loss 10 Other: Voiding Method Indwelling Catheter Indwelling Catheter Indwelling Catheter - Labs CBC & Chem 7: 08/18/21 07:47 08/18/21 07:47 Labs: Abnormal Lab Results - Last 24 Hours (Table) 08/17/21 08/18/21 08/18/21 Range/Units 21:40 07:47 07:47 RBC 2.58 L (4.30-5.90) m/uL Hgb 8.0 L (13.0-17.5) gm/dL Hct 25.1 L (39.0-53.0) % Plt Count 629 H (150-450) k/uL Sodium 135 L (137-145) mmol/L Potassium 3.1 L (3.5-5.1) mmol/L Chloride 108 H (98-107) mmol/L Carbon Dioxide 21 L (22-30) mmol/L BUN 5 L (9-20) mg/dL Creatinine 0.43 L (0.66-1.25) mg/dL Calcium 7.2 L (8.4-10.2) mg/dL Microbiology - Last 24 Hours (Table) 08/09/21 23:20 Blood Culture Gram Stain - Final Blood Blood Culture - Final Bacteroides fragilis Peptostreptococcus asaccharoly 08/17/21 12:22 Gram Stain - Preliminary Back Tissue Culture - Preliminary 08/17/21 12:22 Gram Stain - Preliminary Back Wound Culture - Preliminary 08/17/21 12:22 Anaerobic Culture - Preliminary Back 08/17/21 12:22 Anaerobic Culture - Preliminary Back 08/09/21 23:10 Blood Culture Gram Stain - Final Blood Blood Culture - Final Bacteroides fragilis Peptostreptococcus asaccharoly
--- NOTE | 2021-08-18 16:01 | PN ---
PROGRESS NOTE DATE OF SERVICE: 08/18/2021 REASON FOR FOLLOW UP: Infected sacral pressure ulcer with bacteremia. INTERVAL HISTORY: The patient is afebrile. The patient is currently breathing comfortably. Has been complaining of some discomfort to the sacral wound area; no worsening, though. No chest pain or shortness of breath or cough. No abdominal pain or diarrhea. PHYSICAL EXAMINATION: Blood pressure 109/64, pulse of 94, temperature 98.4. He is 99% on room air. General description is a middle-aged male lying in bed in no distress. Respiratory system: Unlabored breathing, clear to auscultation anteriorly. Heart S1, S2. Regular rate and rhythm. Abdomen soft, no tenderness. LABS: Hemoglobin is 8, white count 8.7, creatinine 0.43. DIAGNOSTIC IMPRESSION AND PLAN: Patient with infected sacral pressure ulcer, status post debridement with bacteremia. Patient's white count responded to the Unasyn and vancomycin. He will get a PICC line for outpatient IV antibiotic therapy. Local care per the wound care team and Surgery. Continue supportive care. MMODL / IJN: [id number] /
--- NOTE | 2021-08-18 16:18 | P.PN ---
Subjective Progress Note Date: 08/18/21 CHIEF COMPLAINT: Sacral decubitus ulcer HISTORY OF PRESENT ILLNESS: Patient is status post second debridement with repeat cultures of infected decubitus ulcer. Patient is sleeping comfortably. No new complaints. Afebrile. WBC 8.7 Hgb 8.0 potassium 3.5 Patient appears more comfortable. Pain is controlled. Patient seen and examined with Dr. gama PHYSICAL EXAM: VITAL SIGNS: Reviewed. GENERAL: Well-developed in no acute distress. HEENT: No sclera icterus. Extraocular movements grossly intact. Moist buccal mucosa. Head is atraumatic, normocephalic. ABDOMEN: Soft. Nondistended. Nontender. ASSESSMENT: 1. Stage IV infected sacral decubitus ulcer status post debridement 2. Hypokalemia 3. Hypernatremia resolved 4. Sepsis due to large sacral decubitus ulcer 5. History of adrenaleukodystrophy PLAN: -Patient may need a diverting colostomy secondary to sacral decubitus ulcer that is now a stage IV with exposed bone -Continue local wound care -Continue IV antibiotics per ID service -Continue to replace potassium -Continue regular diet Physician Intake Clerk note has been reviewed by physician. Signing provider agrees with the documented findings, assessment, and plan of care. Objective - Vital Signs Vital signs: Vital Signs Temp 98 F 08/18/21 14:27 Pulse 87 08/18/21 14:27 Resp 16 08/18/21 14:27 BP 95/60 08/18/21 14:27 Pulse Ox 97 08/18/21 14:27 Intake & Output 08/17/21 08/18/21 08/18/21 18:59 06:59 18:59 Intake Total 500 425 Output Total 1310 1100 Balance -810 -675 Weight 61.235 kg Intake: IV 500 Intake, IV Titration 225 Amount Ampicillin-Sulbactam 3 gm 100 In Sodium Chloride 0.9% 100 ml @ 200 mls/hr IVPB Q6HR [facility] Rx#:[id number] Vancomycin 1,250 mg In 125 Sodium Chloride 0.9% 250 ml @ 125 mls/hr IVPB Q8HR [facility] Rx#:[id number] Oral 200 Output: Urine 1300 1100 Uretheral ([place]) 1100 Estimated Blood Loss 10 Other: Voiding Method Indwelling Catheter Indwelling Catheter Indwelling Catheter - Labs CBC & Chem 7: 08/18/21 07:47 08/18/21 07:47 Labs: Abnormal Lab Results - Last 24 Hours (Table) 08/17/21 08/18/21 08/18/21 Range/Units 21:40 07:47 07:47 RBC 2.58 L (4.30-5.90) m/uL Hgb 8.0 L (13.0-17.5) gm/dL Hct 25.1 L (39.0-53.0) % Plt Count 629 H (150-450) k/uL Sodium 135 L (137-145) mmol/L Potassium 3.1 L (3.5-5.1) mmol/L Chloride 108 H (98-107) mmol/L Carbon Dioxide 21 L (22-30) mmol/L BUN 5 L (9-20) mg/dL Creatinine 0.43 L (0.66-1.25) mg/dL Calcium 7.2 L (8.4-10.2) mg/dL Microbiology - Last 24 Hours (Table) 08/09/21 23:20 Blood Culture Gram Stain - Final Blood Blood Culture - Final Bacteroides fragilis Peptostreptococcus asaccharoly 08/17/21 12:22 Gram Stain - Preliminary Back Tissue Culture - Preliminary 08/17/21 12:22 Gram Stain - Preliminary Back Wound Culture - Preliminary 08/17/21 12:22 Anaerobic Culture - Preliminary Back 08/17/21 12:22 Anaerobic Culture - Preliminary Back 08/09/21 23:10 Blood Culture Gram Stain - Final Blood Blood Culture - Final Bacteroides fragilis Peptostreptococcus asaccharoly
[2021-08-18] MEDS: HYDROcodone/APAP 5-325MG 1 EACH TAB PO PRN (16:39)
[2021-08-18] MEDS: VANCOMYCIN 1,500 MG in SODIUM CHLORIDE 0.9% 250 ML IVPB SCH (16:54)
[2021-08-18] MEDS: HYDROmorphone 1 MG/ML 1 ML SYRINGE IVP PRN (19:43)
[2021-08-19] MEDS: AMPICILLIN-SULBACTAM 3 GM in SODIUM CHLORIDE 0.9% 100 ML IVPB SCH ×5 (03:25→23:59)
[2021-08-19] MEDS: HEPARIN SODIUM,PORCINE/PF 5,000 UNIT/0.5 ML SYRINGE SQ SCH ×4 (03:25→23:59)
[2021-08-19] MEDS: VANCOMYCIN 1,500 MG in SODIUM CHLORIDE 0.9% 250 ML IVPB SCH ×5 (03:27→23:59)
[2021-08-19] MEDS: IPRATROPIUM-ALBUTEROL 3 ML NEB INHALATION SCH ×4 (08:24→20:59)
[2021-08-19] MEDS: NICOTINE 21MG/24HR PATCH TRANSDERM SCH (08:24)
[2021-08-19 08:54] LABS: Basophils % (A) 0 %; Eosinophils # (A) 0.1 k/uL (0-0.7); Eosinophils % (A) 2 %; HCT 22.3 % (39.0-53.0); HGB 7.2 gm/dL (13.0-17.5); Lymphocytes % (A) 16 %; MCHC 32.5 g/dL (31.0-37.0); MCV 95.5 fL (80.0-100.0); Mean Platelet Volume 7.6; Monocytes # (A) 0.3 k/uL (0-1.0); Monocytes % (A) 6 %; Neutrophils # (A) 4.5 k/uL (1.3-7.7); Neutrophils % (A) 73 %; Platelet Count 695 k/uL (150-450); RBC 2.33 m/uL (4.30-5.90); RDW 14.4 % (11.5-15.5); WBC 6.1 k/uL (3.8-10.6)
--- NOTE | 2021-08-19 10:00 | CDI ---
Documentation Clarification Form Date: 08/19/2021 09:42:29 AM From: Shelbie Rubio RN, CCDS Admit Date: 08/10/2021 01:49:00 AM Patient Name: Rober Coombs Visit Number: [id number] Discharge Date: ATTENTION: The Clinical Documentation Specialists (CDI) and [facility] Coding Staff appreciate your assistance in clarifying documentation. Please respond to the clarification below the line at the bottom and electronically sign. The CDI & [facility] Coding staff will review the response and follow-up if needed. Please note: Queries are made part of the Legal Health Record. If you have any questions, please contact the author of this message via ITS. Dr. Spencer Perez A debridement is documented 08/17/21. Additional clarification regarding technique used in the procedure is requested. 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 He was found to have a large infected sacral pressure ulcer. On 08/17 operative note has ulcer measuring approximately 20 x 20 cm. The ischemic skin and fat and muscle was debrided using electrocautery. Treatment: Wound packed with wet-to-dry kerlix per orders Unasyn 3 GM IVPB Q 6HRS Vancomycin HCL 1,500 IVPBQ 8 HRS Please clarify the type of technique used in the procedure: [ x] Excisional debridement (the removal of necrotic, devitalized tissue or slough by means of cutting away of tissue) [ ] Non-excisional debridement (the removal of necrotic, devitalized tissue or slough by means of flushing, brushing, or washing. (Irrigation) [ ] Other; please specify [ ] Unable to determine Five elements required for accurate and compliant documentation of a debridement: Technique used (e.g., excisional, excised, cutting, brushing, jet lavage etc.) Instrument(s) used (e.g., scalpel, curette, etc.) Nature of the tissue removed (e.g., necrotic, devitalized tissues, non-viable tissue, etc.) Appearance and size of the wound (e.g., down to fresh bleeding tissue, 7cm x 10cm, etc.) Depth of the debridement* (e.g., skin, subcutaneous tissue, fascia, muscle, bone, etc.) (Template Last Revised: November 2020) MTDD
[2021-08-19 11:29] LABS: African American GFR (CKD) 168.1 (60.0-200.0); Albumin 1.8 g/dL (3.8-4.9); Albumin/Globulin Ratio 0.7 (1.60-3.17); BUN/Creat Ratio 14.24 Ratio (12.00-20.00); Blood Urea Nitrogen 4.7 mg/dL (9.0-27.0); Calcium 7.1 mg/dL (8.7-10.3); Carbon Dioxide 20.3 mmol/L (21.6-31.8); Globulin 2.6 g/dL (1.6-3.3); Non-African American GFR(CKD) 145.1 (60.0-200.0); Potassium 3.1 mmol/L (3.5-5.5); Total Bilirubin 0.2 mg/dL (0.30-1.20); Total Protein 4.5 g/dL (6.2-8.2)
[2021-08-19] MEDS: ALPRAZolam 0.5 MG TAB PO PRN (13:05)
--- NOTE | 2021-08-19 13:22 | P.PN ---
Subjective Progress Note Date: 08/19/21 CHIEF COMPLAINT: Sacral decubitus ulcer HISTORY OF PRESENT ILLNESS: Patient is status post second debridement with repeat cultures of infected decubitus ulcer. Patient is sleeping comfortably. No new complaints. Afebrile. WBC 8.7 Hgb 8.0 potassium 3.5 Patient appears more comfortable. Pain is controlled. Afebrile WBC is 6.1H she be 7.2 platelets 695 Patient seen and examined with Dr. gama PHYSICAL EXAM: VITAL SIGNS: Reviewed. GENERAL: Well-developed in no acute distress. HEENT: No sclera icterus. Extraocular movements grossly intact. Moist buccal mucosa. Head is atraumatic, normocephalic. ABDOMEN: Soft. Nondistended. Nontender. ASSESSMENT: 1. Stage IV infected sacral decubitus ulcer status post debridement 2 2. Hypokalemia 3. Hypernatremia resolved 4. Sepsis due to large sacral decubitus ulcer 5. History of adrenaleukodystrophy PLAN: -Patient may need a diverting colostomy secondary to sacral decubitus ulcer that is now a stage IV with exposed bone -Continue local wound care -Continue wound VAC per wound care service -Continue IV antibiotics per ID service -Continue regular diet Physician Electronic Plotting System Operator note has been reviewed by physician. Signing provider agrees with the documented findings, assessment, and plan of care. Objective - Vital Signs Vital signs: Vital Signs Temp 98.4 F 08/19/21 07:10 Pulse 80 08/19/21 08:36 Resp 14 08/19/21 07:10 BP 117/70 08/19/21 07:10 Pulse Ox 98 08/19/21 05:00 Intake & Output 08/18/21 08/19/21 08/19/21 18:59 06:59 18:59 Output Total 500 800 450 Balance -500 -800 -450 Output: Urine 500 800 450 Other: Voiding Method Indwelling Catheter Indwelling Catheter Indwelling Catheter - Labs CBC & Chem 7: 08/19/21 08:00 08/18/21 07:47 Labs: Abnormal Lab Results - Last 24 Hours (Table) 08/19/21 Range/Units 08:00 RBC 2.33 L (4.30-5.90) m/uL Hgb 7.2 L (13.0-17.5) gm/dL Hct 22.3 L (39.0-53.0) % Plt Count 695 H (150-450) k/uL Microbiology - Last 24 Hours (Table) 08/09/21 23:20 Blood Culture Gram Stain - Final Blood Blood Culture - Final Bacteroides fragilis Peptostreptococcus asaccharoly 08/17/21 12:22 Gram Stain - Preliminary Back Tissue Culture - Preliminary 08/17/21 12:22 Gram Stain - Preliminary Back Wound Culture - Preliminary
[2021-08-19] MEDS ORDERED: Potassium Replacement Protocol 1 EACH MISC MISCELLANE PRN (17:39)
[2021-08-19] MEDS: HYDROcodone/APAP 5-325MG 1 EACH TAB PO PRN (19:06)
[2021-08-19] MEDS: POTASSIUM CHLORIDE ER 20 MEQ TAB.ER PO SCH ×2 (19:10→20:14)
--- NOTE | 2021-08-19 22:36 | PN ---
PROGRESS NOTE DATE OF SERVICE: 08/19/2021. REASON FOR FOLLOWUP: Infected sacral pressure ulcer and bacteremia. INTERVAL HISTORY: The patient is afebrile. The patient is currently breathing comfortably. The patient denies having any chest pain or shortness of breath or cough. No abdominal pain or worsening pain to the sacral wound area. PHYSICAL EXAMINATION: His blood pressure is 100/63, pulse of 69, temperature 98.5. He is 99% on room air. General description is a middle-aged male lying in bed in no distress. Respiratory system: Unlabored breathing, clear to auscultation anteriorly. Heart S1, S2. Regular rate and rhythm. Abdomen soft, no tenderness. LABS: Hemoglobin is 7.2, white count 6.1, creatinine 0.3. The back abscess culture is showing MRSA. Patient did have bacteroides and Peptostreptococcus bacteremia. DIAGNOSTIC IMPRESSION AND PLAN: Patient admitted to hospital with sepsis, concern for infected sacral pressure ulcer, status post debridement. Culture has been predominantly MRSA Peptostreptococcus and Bacteroides. Patient is covered with Unasyn and vancomycin. PICC line ordered for outpatient IV antibiotics for at least 6 weeks. Local care to continue per the wound care team. Continue with supportive care. MMODL / IJN: [id number] /
[2021-08-19] MEDS: POTASSIUM CHLORIDE 10 MEQ in WATER FOR INJECTION 1 100ML.BAG IVPB SCH ×2 (22:48→23:59)
[2021-08-19] MEDS: LACTATED RINGERS 1,000 ML IV SCH (22:50)
[2021-08-20] MEDS: POTASSIUM CHLORIDE 10 MEQ in WATER FOR INJECTION 1 100ML.BAG IVPB SCH ×2 (01:14→03:24)
[2021-08-20] MEDS: HYDROmorphone 1 MG/ML 1 ML SYRINGE IVP PRN ×2 (04:02→09:58)
[2021-08-20] MEDS: AMPICILLIN-SULBACTAM 3 GM in SODIUM CHLORIDE 0.9% 100 ML IVPB SCH ×4 (05:44→23:45)
[2021-08-20] MEDS: IPRATROPIUM-ALBUTEROL 3 ML NEB INHALATION SCH ×4 (07:26→20:50)
[2021-08-20 07:29] LABS: African American GFR (CKD) >90 (>60 ml/min/1.73 sqM); Anion Gap 3 mmol/L; Blood Urea Nitrogen 4 mg/dL (9-20); Calcium 7.4 mg/dL (8.4-10.2); Carbon Dioxide 21 mmol/L (22-30); Chloride 109 mmol/L (98-107); Glucose 97 mg/dL (74-99); Non-African American GFR(CKD) >90 (>60 ml/min/1.73 sqM); Potassium 3.7 mmol/L (3.5-5.1); Sodium 133 mmol/L (137-145)
[2021-08-20] MEDS: HEPARIN SODIUM,PORCINE/PF 5,000 UNIT/0.5 ML SYRINGE SQ SCH ×2 (07:46→16:01)
[2021-08-20] MEDS: NICOTINE 21MG/24HR PATCH TRANSDERM SCH (09:21)
[2021-08-20] MEDS: VANCOMYCIN 1,250 MG in SODIUM CHLORIDE 0.9% 250 ML IVPB SCH ×2 (09:29→18:02)
[2021-08-20] MEDS: SODIUM CHLORIDE 0.9% 1,000 ML IV SCH (09:34)
[2021-08-20] MEDS: VANCOMYCIN 1,500 MG in SODIUM CHLORIDE 0.9% 250 ML IVPB SCH (09:36)
[2021-08-20] MEDS ORDERED: LIDOCAINE 1% INJ 10MG/ML (20 ML MDV) SQ ONE (11:23)
--- NOTE | 2021-08-20 13:37 | P.PN ---
Subjective Progress Note Date: 08/20/21 Constitutional: No acute distress, conversant, pleasant Eyes: Anicteric sclerae, moist conjunctiva, no lid-lag PERRLA ENMT: NC/AT Oropharynx clear, no erythema, exudates Neck: Supple, FROM, no masses, or JVD No carotid bruits No thyromegaly Lungs: Clear to auscultation Clear to percussion Normal respiratory effort, no accessory muscle use Cardiovascular: Heart regular in rate and rhythm, No murmurs, gallops, or rubs No peripheral edema Abdominal: Soft Nontender, no guarding, rebound or rigidity Abdomen moving with respiration Normoactive bowel sounds No hepatomegaly, No splenomegaly No palpable mass No abdominal wall hernia noted Skin: Normal temperature, tone, texture, turgor No induration No subcutaneous nodules No rash, lesions No ulcers Extremities: No digital cyanosis No clubbing Pedal pulses intact and symmetrical Radial pulses intact and symmetrical Normal gait and station No calf tenderness Psychiatric:Alert and oriented to person, place and time Appropriate affect Intact judgement Neuro: Sepsis secondary to large unstageable sacral ulcer with tissue stain positive for MRSA diphtheroid species, MRSA UTI and Bacteroides fragillis bacteremia -CT abd/pelvis pending concern for abdominal source re: bacteremia -Blood culture is positive for Bacterpodes fragillis. -Urinalysis positive for MRSA -Tissue Gram stain from sacral ulcer positive for MRSA and diphtheroid species -Infectious disease following -Gen. surgery following -Patient underwent debridement of sacral ulcer on 08/12/21 and tentative plan is for patient to go down for scheduled debridement later today in OR with Dr. Perez once potassium has been replaced -symptomatic care and pain management -Turn every 2 hours and offload -Wound care -Continuation of IV antibiotics: Unasyn and vancomycin Hypokalemia with potassium of 3.0 -replaced, we will continue to monitor with repeat a.m. labs. Thrombocytosis, suspected reactive with dehydration and acute stressor -Monitor for now Overall stable continue IV antibiotics patient needs rehab discussed with the Patient will likely have colostomy Scheduled to have surgery Objective - Vital Signs Vital signs: Vital Signs Temp 98.7 F 08/20/21 07:23 Pulse 66 08/20/21 08:00 Resp 16 08/20/21 08:00 BP 125/72 08/20/21 07:23 Pulse Ox 98 08/20/21 07:23 Intake & Output 08/19/21 08/20/21 08/20/21 18:59 06:59 18:59 Intake Total 850 Output Total 1050 800 Balance -1050 50 Weight 61.235 kg Intake: Intake, IV Titration 850 Amount Ampicillin-Sulbactam 3 gm 200 In Sodium Chloride 0.9% 100 ml @ 200 mls/hr IVPB Q6HR [facility] Rx#:[id number] Potassium Chloride 10 meq 400 In Water For Injection 1 100ml.bag @ 100 mls/hr IVPB Q1HR [facility] Rx#: [id number] Vancomycin 1,500 mg In 250 Sodium Chloride 0.9% 250 ml @ 125 mls/hr IVPB Q8HR [facility] Rx#:[id number] Output: Urine 1050 800 Uretheral ([place]) 800 Other: Voiding Method Indwelling Catheter Indwelling Catheter Indwelling Catheter - Labs CBC & Chem 7: 08/19/21 08:00 08/20/21 06:56 Labs: Abnormal Lab Results - Last 24 Hours (Table) 08/19/21 08/20/21 Range/Units 21:22 06:56 Sodium 133 L (137-145) mmol/L Potassium 3.0 L (3.5-5.1) mmol/L Chloride 109 H (98-107) mmol/L Carbon Dioxide 21 L (22-30) mmol/L BUN 4 L (9-20) mg/dL Creatinine 0.39 L (0.66-1.25) mg/dL Calcium 7.4 L (8.4-10.2) mg/dL Microbiology - Last 24 Hours (Table) 08/17/21 12:22 Anaerobic Culture - Preliminary Back 08/17/21 12:22 Gram Stain - Final Back Wound Culture - Final Methicillin resist S. aureus 08/17/21 12:22 Gram Stain - Final Back Tissue Culture - Final Methicillin resist S. aureus
--- NOTE | 2021-08-20 13:54 | IR ---
EXAMINATION TYPE: IR cvc insert >=5 years DATE OF EXAM: 08/20/2021 COMPARISON: NONE CLINICAL HISTORY: Infection Needs long-term intravenous access for antibiotics. PROCEDURE: Hand hygiene obtained with soap and water and alcohol-based hand rub. After informed consent, the skin overlying the left brachial vein was localized with ultrasound and n oted to be compressible and patent. An ultrasound image was obtained and submitted on the patient's chart. The overlying skin was prepped and draped and Lidocaine was used for local anesthesia. A ski n trista was made with a scalpel. Access was gained to the vein under ultrasound guidance with a 21 ga uge needle and a 0.018 inch wire was advanced. Access site was dilated with Peel-Away sheath and cat heter tailored to the appropriate length and advanced such that the distal tip is at the cavoatrial j unction. Spot image was obtained verifying placement. Catheter was fixed to the skin and a sterile dressing was placed following hemostasis. Catheter was aspirated and flushed with saline. Patient w as discharged in stable condition without complication.Maximal barrier technique is utilized. Ultras ound image is documented on the chart. Ultrasound used with sterile technique. Fluoro time and fluoroscopic images submitted to document procedure: 14 intraoperative C-arm images d ocument the procedure, 0.1 minutes fluoroscopy time IMPRESSION: STATUS POST ULTRASOUND AND FLUOROSCOPIC GUIDED PICC LINE PLACEMENT, READY FOR USE. THIS PROCEDURE WAS PERFORMED BY THE UNDERSIGNED.
--- NOTE | 2021-08-20 15:35 | P.PN ---
Subjective Progress Note Date: 08/20/21 CHIEF COMPLAINT: Sacral decubitus ulcer HISTORY OF PRESENT ILLNESS: Patient is status post second debridement with repeat cultures of infected decubitus ulcer. Patient lying in bed comfortably. His pain is controlled. Afebrile. Sodium 133 Potassium 3.7 Patient seen and examined with Dr. gama PHYSICAL EXAM: VITAL SIGNS: Reviewed. GENERAL: Well-developed in no acute distress. HEENT: No sclera icterus. Extraocular movements grossly intact. Moist buccal mucosa. Head is atraumatic, normocephalic. ABDOMEN: Soft. Nondistended. Nontender. ASSESSMENT: 1. Stage IV infected sacral decubitus ulcer status post debridement 2 2. Hypokalemia improved 3. Hypernatremia resolved 4. Sepsis due to large sacral decubitus ulcer 5. History of adrenaleukodystrophy PLAN: -Patient scheduled for a diverting ostomy on 08/23/[address] Gama -Continue local wound care -Continue wound VAC per wound care service -Continue IV antibiotics per ID service -Continue regular diet Physician Geopolitics Teacher note has been reviewed by physician. Signing provider agrees with the documented findings, assessment, and plan of care. Objective - Vital Signs Vital signs: Vital Signs Temp 98.7 F 08/20/21 07:23 Pulse 66 08/20/21 08:00 Resp 16 08/20/21 08:00 BP 125/72 08/20/21 07:23 Pulse Ox 98 08/20/21 07:23 Intake & Output 08/19/21 08/20/21 08/20/21 18:59 06:59 18:59 Intake Total 850 Output Total 1050 800 Balance -1050 50 Weight 61.235 kg Intake: Intake, IV Titration 850 Amount Ampicillin-Sulbactam 3 gm 200 In Sodium Chloride 0.9% 100 ml @ 200 mls/hr IVPB Q6HR [facility] Rx#:[id number] Potassium Chloride 10 meq 400 In Water For Injection 1 100ml.bag @ 100 mls/hr IVPB Q1HR [facility] Rx#: [id number] Vancomycin 1,500 mg In 250 Sodium Chloride 0.9% 250 ml @ 125 mls/hr IVPB Q8HR [facility] Rx#:[id number] Output: Urine 1050 800 Uretheral ([place]) 800 Other: Voiding Method Indwelling Catheter Indwelling Catheter Indwelling Catheter - Labs CBC & Chem 7: 08/19/21 08:00 08/20/21 06:56 Labs: Abnormal Lab Results - Last 24 Hours (Table) 08/19/21 08/20/21 Range/Units 21:22 06:56 Sodium 133 L (137-145) mmol/L Potassium 3.0 L (3.5-5.1) mmol/L Chloride 109 H (98-107) mmol/L Carbon Dioxide 21 L (22-30) mmol/L BUN 4 L (9-20) mg/dL Creatinine 0.39 L (0.66-1.25) mg/dL Calcium 7.4 L (8.4-10.2) mg/dL Microbiology - Last 24 Hours (Table) 08/17/21 12:22 Anaerobic Culture - Preliminary Back 08/17/21 12:22 Gram Stain - Final Back Wound Culture - Final Methicillin resist S. aureus 08/17/21 12:22 Gram Stain - Final Back Tissue Culture - Final Methicillin resist S. aureus
--- NOTE | 2021-08-20 17:31 | PN ---
PROGRESS NOTE DATE OF SERVICE: 08/20/2021 REASON FOR FOLLOWUP: Infected sacral pressure ulcer with bacteremia. INTERVAL HISTORY: The patient is afebrile. The patient is currently breathing comfortably. No chest pain, shortness of breath or cough. No abdominal pain or any worsening pain to the sacral wound area. PHYSICAL EXAMINATION: Blood pressure 125/72 with a pulse of 66, temperature 98.7. He is 98% on room air. General description is a middle-aged male lying in bed in no distress. Respiratory system: Unlabored breathing, clear to auscultation anteriorly. Heart S1, S2. Regular rate and rhythm. Abdomen soft, no tenderness. LABS: BUN of 4, creatinine 0.39. DIAGNOSTIC IMPRESSION AND PLAN: Patient with infected sacral pressure ulcer with bacteremia. Patient is covered with vancomycin and Unasyn. Plan for possible diverting colostomy. Continue supportive care. ALONDRA / MIQUEL: [id number] /
[2021-08-20] MEDS: LACTATED RINGERS 1,000 ML IV SCH (19:04)
[2021-08-21] MEDS: VANCOMYCIN 1,250 MG in SODIUM CHLORIDE 0.9% 250 ML IVPB SCH ×3 (02:39→19:48)
[2021-08-21] MEDS: SODIUM CHLORIDE 0.9% 1,000 ML IV SCH ×2 (04:03→10:26)
[2021-08-21] MEDS: AMPICILLIN-SULBACTAM 3 GM in SODIUM CHLORIDE 0.9% 100 ML IVPB SCH ×4 (05:58→23:05)
[2021-08-21] MEDS: IPRATROPIUM-ALBUTEROL 3 ML NEB INHALATION SCH ×4 (07:20→19:39)
[2021-08-21] MEDS: NICOTINE 21MG/24HR PATCH TRANSDERM SCH (07:20)
[2021-08-21] MEDS: HEPARIN SODIUM,PORCINE/PF 5,000 UNIT/0.5 ML SYRINGE SQ SCH ×4 (07:20→23:09)
[2021-08-21 07:45] LABS: ALT 22 U/L (4-49); AST 29 U/L (17-59); African American GFR (CKD) >90 (>60 ml/min/1.73 sqM); Albumin 1.9 g/dL (3.5-5.0); Albumin/Globulin Ratio 0.6; Alkaline Phosphatase 115 U/L (38-126); Anion Gap 3 mmol/L; Blood Urea Nitrogen 3 mg/dL (9-20); Carbon Dioxide 22 mmol/L (22-30); Chloride 108 mmol/L (98-107); Glucose 101 mg/dL (74-99); Non-African American GFR(CKD) >90 (>60 ml/min/1.73 sqM); Potassium 3.1 mmol/L (3.5-5.1); Sodium 133 mmol/L (137-145); Total Bilirubin 0.2 mg/dL (0.2-1.3); Total Protein 4.9 g/dL (6.3-8.2)
[2021-08-21 07:54] LABS: Basophils % (A) 0 %; Eosinophils # (A) 0.1 k/uL (0-0.7); Eosinophils % (A) 2 %; HCT 22.9 % (39.0-53.0); HGB 7.3 gm/dL (13.0-17.5); Lymphocytes # (A) 1.3 k/uL (1.0-4.8); Lymphocytes % (A) 24 %; MCH 30.6 pg (25.0-35.0); MCV 95.6 fL (80.0-100.0); Mean Platelet Volume 7.7; Monocytes # (A) 0.4 k/uL (0-1.0); Monocytes % (A) 8 %; Neutrophils # (A) 3.4 k/uL (1.3-7.7); Neutrophils % (A) 63 %; Platelet Count 648 k/uL (150-450); RBC 2.39 m/uL (4.30-5.90); RDW 13.9 % (11.5-15.5); WBC 5.5 k/uL (3.8-10.6)
[2021-08-21] MEDS ORDERED: POTASSIUM CHLORIDE ER 20 MEQ TAB.ER PO STA (08:13)
[2021-08-21] MEDS: POTASSIUM CHLORIDE 10 MEQ in WATER FOR INJECTION 1 100ML.BAG IVPB SCH ×2 (10:17→11:26)
--- NOTE | 2021-08-21 11:10 | P.PN ---
Progress Note - Text Progress Note Date: 08/21/21 Patient been stable. He is scheduled for diverting colostomy on Monday.
--- NOTE | 2021-08-21 14:37 | P.PN ---
Subjective Progress Note Date: 08/21/21 Hospital course: Patient is a 55-year-old male with a PMH of adrenoleukodystrophy, essentially bedbound who was brought into the emergency room by his for buttock ulcer, worsening mental status, and fever in 08/20/21. at this time patient was found to be septic with heart rate of 110, temperature 100.4F, and WBC count of 34.7. in addition patient was found to be significantly hypokalemic with potassium of 2.6. Urinalysis contaminated but concerning for positive for infection with findings of protein, ketones, blood, leukocytes, 16 RBCs, and 79 WBCs. patient was admitted under our services with consultation togeneral surgery and infectious disease. patient underwent debridement of sacral ulcer on 08/12/21 and underwent a second debridement in OR with Dr. Perez on 08/17/21. During second surgical debridement, surgeon recommending that patient may need diverging colostomy secondary to sacral decubitus ulcer with exposed bone. Wound vac was placed to sacral region. Blood culture is positive for Bacterpodes fragillis, urinalysis positive for MRSA, and tissue Gram stain from sacral ulcer positive for MRSA and diphtheroid species. patient remains on IV antibiotics vancomycin and Unasyn. Patient scheduled to undergo colostomy placement in 08/23/[address] Perez. Physical exam: Patient seen and fully evaluated at the bedside. He was resting comfortably with at bedside. Patient awaiting to undergo colostomy placement on 08/23/21. He continues to have mild hyponatremia and hypokalemia. Sodium 133 and potassium 3.1, replaced with 60 mEq and receiving gentle hydration with 0.9% normal saline at 75 mL's per hour. Calcium 7.0, however corrected calcium 8.7. Patient's reports patient has been experiencing mild anxiety, states medication does help when patient will take. She currently denies having any complaints or needs at this time. He remains on IV antibiotics with vancomycin and Unasyn. Repeat blood cultures to be completed. Vital signs reviewed and stable. General: Nontoxic, no distress and appears chronically ill Derm: Skin warm and dry, normal coloration for ethnicity. Dressing in place to sacral/coccyx region. Head: Atraumatic, normocephalic and symmetric. very hard of hearing. Eyes: no lid lag, and anicteric sclera Mouth: no lip lesions, mucus membranes moist Cardiovascular: regular rate and rhythm with normal S1S2, no murmur, positive posterior tibial pulses bilaterally, and cap refill < 2 seconds. Lungs: Respirations even, regular, and unlabored on room air. Lungs CTA bilaterally, no rhonchi, no rales, no wheezing, and no accessory muscle usage. Abdominal: soft, nontender to palpation, no guarding, no appreciable organomegaly Ext: Bed bound, limited movement in BLE, sensation and movement intact to BUE. diffuse muscle atrophy, no contractures. Neuro: Speech clear, face symmetrical Psych: Alert and oriented to person, place, and situation. Appropriate and pleasant affect. Assessment and Plan of Care: Sepsis secondary to large stage IV sacral ulcer Infected sacral ulcer positive for MRSA diphtheroid species status post debridement x 2 with wound vac placement MRSA UTI Bacteroides fragillis Bacteremia -CT abd/pelvis pending concern for abdominal source re: bacteremia -Blood culture is positive for Bacterpodes fragillis. -Urinalysis positive for MRSA -Tissue Gram stain from sacral ulcer positive for MRSA and diphtheroid species -Infectious disease following -Gen. surgery following, plans to take patient to OR on 08/23/21 to u ndergo colostomy placement secondary to sacral decubitus ulcer with exposed bone. -Patient underwent debridement of sacral ulcer on 08/12/21 and underwent a second debridement in OR with Dr. Perez on 08/17/21. -Symptomatic care and pain management -Turn every 2 hours and offload pressure from sacral region -Wound care and management of wound VAC -Continuation of IV antibiotics: Unasyn and vancomycin Hypokalemia with potassium of 3.1 -Replaced, we will continue to monitor with repeat a.m. labs. Normocytic normochromic anemia, chronic of unclear etiology -Hemoglobin 7.3, slightly lower than baseline hemoglobin we will continue to monitor closely with repeat a.m. labs. Thrombocytosis, suspected reactive with dehydration and acute stressors -Continued close monitoring. -Continue with gentle hydration -DVT prophylaxis with heparin 5000 units subcu every 8 hours. Mild hyponatremia, sodium 133 -Patient placed back on IV fluids on 08/20/21 for gentle hydration. -We will continue to monitor with repeat a.m. labs. Adrenoleukodystrophy -Continue with safe and supportive care providing assistance as needed. CODE STATUS: Full code DVT prophylaxis: Heparin Discussed with: Pt and RN Anticipated discharge date: Clinical course to determine Anticipated discharge place: Home in care of with home care A total of 45 minutes was spent on the care of this complex patient more than 50% of the time was spent in counseling and care coordination. Objective - Vital Signs Vital signs: Vital Signs Temp 98.1 F 08/21/21 13:03 Pulse 64 08/21/21 13:03 Resp 16 08/21/21 13:03 BP 103/62 08/21/21 13:03 Pulse Ox 94 L 08/21/21 13:03 Intake & Output 08/20/21 08/21/21 08/21/21 18:59 06:59 18:59 Intake Total 950 400 Output Total 1100 1900 Balance -150 -1500 Intake: Intake, IV Titration 950 Amount Sodium Chloride 0.9% 1, 450 000 ml @ 75 mls/hr IV . [id number] [facility] Rx#:[id number] Vancomycin 1,250 mg In 500 Sodium Chloride 0.9% 250 ml @ 125 mls/hr IVPB Q8H [facility] Rx#:[id number] Oral 400 Output: Drainage 500 Sacrum 500 Urine 1100 1400 Other: Voiding Method Indwelling Catheter Indwelling Catheter Indwelling Catheter - Labs CBC & Chem 7: 08/21/21 07:06 08/21/21 07:06 Labs: Abnormal Lab Results - Last 24 Hours (Table) 08/21/21 08/21/21 Range/Units 07:06 07:06 RBC 2.39 L (4.30-5.90) m/uL Hgb 7.3 L (13.0-17.5) gm/dL Hct 22.9 L (39.0-53.0) % Plt Count 648 H (150-450) k/uL Sodium 133 L (137-145) mmol/L Potassium 3.1 L (3.5-5.1) mmol/L Chloride 108 H (98-107) mmol/L BUN 3 L (9-20) mg/dL Creatinine 0.39 L (0.66-1.25) mg/dL Glucose 101 H (74-99) mg/dL Calcium 7.0 L (8.4-10.2) mg/dL Total Protein 4.9 L (6.3-8.2) g/dL Albumin 1.9 L (3.5-5.0) g/dL Microbiology - Last 24 Hours (Table) 08/17/21 12:22 Anaerobic Culture - Final Back 08/17/21 12:22 Anaerobic Culture - Final Back Anaerobic Gm Positive Bacill
[2021-08-21] MEDS: HYDROcodone/APAP 5-325MG 1 EACH TAB PO PRN (17:11)
--- NOTE | 2021-08-21 19:49 | PN ---
PROGRESS NOTE DATE OF SERVICE: 08/21/2021 REASON FOR FOLLOWUP: Infected sacral pressure ulcer with bacteremia. INTERVAL HISTORY: Patient is currently afebrile. The patient has been breathing comfortably, more awake and alert. No chest pain or cough. No abdominal pain or worsening pain to the sacral wound area. PHYSICAL EXAMINATION: Blood pressure 103/62 with a pulse of 84, temperature 98.1. He is 94% on room air. General description is a middle-aged male lying in bed in no distress. Abdomen: Soft. Sacral wound is dressed. LABS: Hemoglobin 7.1, white count of 5.5, creatinine 0.39. Blood cultures with Bacteroides and Peptostreptococcus. DIAGNOSTIC IMPRESSION AND PLAN: Patient with infected sacral pressure ulcer status post debridement. Culture with MRSA with Peptostreptococcus and Bacteroides bacteremia. Patient is covered with Unasyn and vancomycin to continue. Plan for possible diverting colostomy. The patient did get angry when the told him about plan for diverting colostomy and did use foul language saying "the [facility] [place] physician will make decisions without talking to him". The patient has been instructed not to use this kind of language in front of me next time or he will have to find himself a different Infectious Disease physician. Patient is being respected and respect is expected in return. MMODL / IJN: [id number] /
[2021-08-21] MEDS: HYDROmorphone 1 MG/ML 1 ML SYRINGE IVP PRN (20:26)
[2021-08-22] MEDS: HYDROmorphone 1 MG/ML 1 ML SYRINGE IVP PRN ×2 (00:12→17:33)
[2021-08-22] MEDS ORDERED: VANCOMYCIN TROUGH DUE 1 EACH MISC MISCELLANE ONE (01:00)
[2021-08-22 01:51] LABS: African American GFR (CKD) >90 (>60 ml/min/1.73 sqM); Non-African American GFR(CKD) >90 (>60 ml/min/1.73 sqM)
[2021-08-22] MEDS: VANCOMYCIN 1,250 MG in SODIUM CHLORIDE 0.9% 250 ML IVPB SCH ×3 (02:13→18:38)
[2021-08-22] MEDS: LACTATED RINGERS 1,000 ML IV SCH ×2 (03:24→19:38)
[2021-08-22] MEDS: SODIUM CHLORIDE 0.9% 1,000 ML IV SCH ×3 (03:25→19:38)
[2021-08-22] MEDS: AMPICILLIN-SULBACTAM 3 GM in SODIUM CHLORIDE 0.9% 100 ML IVPB SCH ×3 (05:37→17:34)
[2021-08-22] MEDS: NICOTINE 21MG/24HR PATCH TRANSDERM SCH (07:26)
[2021-08-22] MEDS: HEPARIN SODIUM,PORCINE/PF 5,000 UNIT/0.5 ML SYRINGE SQ SCH ×2 (07:26→16:16)
[2021-08-22 07:55] LABS: HCT 24.7 % (39.0-53.0); MCH 30.9 pg (25.0-35.0); MCHC 32.3 g/dL (31.0-37.0); MCV 95.6 fL (80.0-100.0); Mean Platelet Volume 7.5; Platelet Count 719 k/uL (150-450); RBC 2.58 m/uL (4.30-5.90); RDW 14.4 % (11.5-15.5); WBC 6.3 k/uL (3.8-10.6)
[2021-08-22 08:09] LABS: African American GFR (CKD) >90 (>60 ml/min/1.73 sqM); Anion Gap 3 mmol/L; Blood Urea Nitrogen 2 mg/dL (9-20); C Reactive Protein 4.1 mg/dL (<1.0); Calcium 7.3 mg/dL (8.4-10.2); Carbon Dioxide 21 mmol/L (22-30); Chloride 109 mmol/L (98-107); Glucose 103 mg/dL (74-99); Magnesium 1.9 mg/dL (1.6-2.3); Non-African American GFR(CKD) >90 (>60 ml/min/1.73 sqM); Potassium 3.1 mmol/L (3.5-5.1); Sodium 133 mmol/L (137-145)
[2021-08-22] MEDS: IPRATROPIUM-ALBUTEROL 3 ML NEB INHALATION SCH ×4 (08:13→15:46)
[2021-08-22 11:09] LABS: Erythrocyte Sedimentation Rate 80 mm/hr (0-15)
--- NOTE | 2021-08-22 12:51 | P.PN ---
Progress Note - Text Progress Note Date: 08/22/21 Patient scheduled for diverting colostomy tomorrow.
[2021-08-22] MEDS ORDERED: POTASSIUM CHLORIDE ER 20 MEQ TAB.ER PO STA (13:57)
--- NOTE | 2021-08-22 14:06 | P.PN ---
<Mo King - Last Filed: 08/22/21 13:54> Subjective Progress Note Date: 08/22/21 Hospital course: Patient is a 55-year-old male with a PMH of adrenoleukodystrophy, essentially bedbound who was brought into the emergency room by his for buttock ulcer, worsening mental status, and fever in 08/20/21. at this time patient was found to be septic with heart rate of 110, temperature 100.4F, and WBC count of 34.7. in addition patient was found to be significantly hypokalemic with potassium of 2.6. Urinalysis contaminated but concerning for positive for infection with fin dings of protein, ketones, blood, leukocytes, 16 RBCs, and 79 WBCs. patient was admitted under our services with consultation togeneral surgery and infectious disease. patient underwent debridement of sacral ulcer on 08/12/21 and underwent a second debridement in OR with Dr. Perez on 08/17/21. During second surgical debridement, surgeon recommending that patient may need diverging colostomy secondary to sacral decubitus ulcer with exposed bone. Wound vac was placed to sacral region. Blood culture is positive for Bacterpodes fragillis, urinalysis positive for MRSA, and tissue Gram stain from sacral ulcer positive for MRSA and diphtheroid species. patient remains on IV antibiotics vancomycin and Unasyn. Patient scheduled to undergo colostomy placement in 08/23/[address] Perez. Physical exam: Patient seen and fully evaluated at the bedside. He was resting comfortably this morning. Patient reports he is tired as he did not sleep well last night. Wound VAC remains in place to sacral region. Morning labs revealstable hemoglobin at 8.0, continued hyponatremia with sodium of 133, and again hypokalemia with potassium of 3.1. We will replace potassium with 40 mEq orally along with 40 mEq IVPB. Patient to continue with gentle hydration with 0.9% normal saline at 75 miles per hour to ensure sodium levels stay above 130 for scheduled surgery tomorrow morning. Patient denies having any other complaints or needs at this time. Patient to remain on Unasyn and vancomycin for treatment of MRSA diphtheroid species infected wound, MRSA UTI and Bacteroides fragillis Bacteremia Vital signs reviewed and stable. General: Nontoxic, no distress and appears chronically ill Derm: Skin warm and dry, normal coloration for ethnicity. Dressing in place to sacral/coccyx region. Head: Atraumatic, normocephalic and symmetric. very hard of hearing. Eyes: no lid lag, and anicteric sclera Mouth: no lip lesions, mucus membranes moist Cardiovascular: regular rate and rhythm with normal S1S2, no murmur, positive posterior tibial pulses bilaterally, and cap refill < 2 seconds. Lungs: Respirations even, regular, and unlabored on room air. Lungs CTA bilaterally, no rhonchi, no rales, no wheezing, and no accessory muscle usage. Abdominal: soft, nontender to palpation, no guarding, no appreciable organomegaly Ext: Bed bound, limited movement in BLE, sensation and movement intact to BUE. diffuse muscle atrophy, no contractures. Neuro: Speech clear, face symmetrical Psych: Alert and oriented to person, place, and situation. Appropriate and pleasant affect. Assessment and Plan of Care: Sepsis secondary to large stage IV sacral ulcer Infected sacral ulcer positive for MRSA diphtheroid species status post debridement x 2 with wound vac placement MRSA UTI Bacteroides fragillis Bacteremia -CT abd/pelvis pending concern for abdominal source re: bacteremia -Blood culture is positive for Bacterpodes fragillis. -Urinalysis positive for MRSA -Tissue Gram stain from sacral ulcer positive for MRSA and diphtheroid species -Infectious disease following -Gen. surgery following, plans to take patient to OR on 08/23/21 to undergo colostomy placement secondary to sacral decubitus ulcer with exposed bone. -Patient underwent debridement of sacral ulcer on 08/12/21 and underwent a second debridement in OR on 08/17/[address] Perez. -Symptomatic care and pain management -Turn every 2 hours and offload pressure from sacral region -Wound care and management of wound VAC -Continuation of IV antibiotics: Unasyn and vancomycin Hypokalemia with potassium of 3.1 -Replaced, we will continue to monitor with repeat a.m. labs. Normocytic normochromic anemia, chronic of unclear etiology, stable at this time -Hemoglobin 8.0, we will continue to monitor closely with repeat a.m. labs. Thrombocytosis, suspected reactive with dehydration and acute stressors -Continued close monitoring. -Continue with gentle hydration -DVT prophylaxis with heparin 5000 units subcu every 8 hours. Mild hyponatremia, sodium 133 -Patient placed back on IV fluids on 08/20/21 for gentle hydration. -We will continue to monitor with repeat a.m. labs. Adrenoleukodystrophy -Continue with safe and supportive care providing assistance as needed. CODE STATUS: Full code DVT prophylaxis: Heparin Discussed with: Pt and RN Anticipated discharge date: Clinical course to determine Anticipated discharge place: Home in care of with home care A total of 45 minutes was spent on the care of this complex patient more than 50% of the time was spent in counseling and care coordination. Objective - Vital Signs Vital signs: Vital Signs Temp 99.2 F 08/22/21 04:35 Pulse 67 08/22/21 04:35 Resp 20 08/22/21 04:35 BP 119/70 08/22/21 04:35 Pulse Ox 97 08/22/21 04:35 Intake & Output 08/21/21 08/22/21 08/22/21 18:59 06:59 18:59 Intake Total 200 Output Total 1700 400 Balance -1700 -200 Intake: Oral 200 Output: Urine 1700 400 Uretheral ([place]) 200 Other: Voiding Method Indwelling Catheter Indwelling Catheter - Labs CBC & Chem 7: 08/22/21 07:30 08/22/21 07:30 Labs: Abnormal Lab Results - Last 24 Hours (Table) 08/21/21 08/22/21 Range/Units 07:06 01:01 RBC 2.39 L (4.30-5.90) m/uL Hgb 7.3 L (13.0-17.5) gm/dL Hct 22.9 L (39.0-53.0) % Plt Count 648 H (150-450) k/uL Creatinine 0.33 L (0.66-1.25) mg/dL Microbiology - Last 24 Hours (Table) 08/17/21 12:22 Anaerobic Culture - Final Back 08/17/21 12:22 Anaerobic Culture - Final Back Anaerobic Gm Positive Bacill <Jonathon Tolentino - Last Filed: 08/22/21 17:57> Subjective I reviewed the documentation as provided by the TAMIE above, who is the original author of this note. I agree with the documented assessment and plan, with the following changes: None Objective - Vital Signs Vital signs: Vital Signs Temp 98.8 F 08/22/21 12:54 Pulse 68 08/22/21 15:55 Resp 17 08/22/21 12:54 BP 121/68 08/22/21 12:54 Pulse Ox 91 L 08/22/21 12:54 Intake & Output 08/21/21 08/22/21 08/22/21 18:59 06:59 18:59 Intake Total 200 Output Total 4794 388 5548 Balance -1700 -200 -1400 Intake: Oral 200 Output: Urine 0527 754 6982 Uretheral ([place]) 200 Other: Voiding Method Indwelling Catheter Indwelling Catheter Indwelling Catheter - Labs CBC & Chem 7: 08/22/21 07:30 08/22/21 07:30 Labs: Abnormal Lab Results - Last 24 Hours (Table) 08/22/21 08/22/21 08/22/21 Range/Units 01:01 07:30 07:30 RBC 2.58 L (4.30-5.90) m/uL Hgb 8.0 L (13.0-17.5) gm/dL Hct 24.7 L (39.0-53.0) % Plt Count 719 H (150-450) k/uL ESR 80 H (0-15) mm/hr Sodium 133 L (137-145) mmol/L Potassium 3.1 L (3.5-5.1) mmol/L Chloride 109 H (98-107) mmol/L Carbon Dioxide 21 L (22-30) mmol/L BUN 2 L (9-20) mg/dL Creatinine 0.33 L 0.34 L (0.66-1.25) mg/dL Glucose 103 H (74-99) mg/dL Calcium 7.3 L (8.4-10.2) mg/dL C-Reactive Protein 4.1 H (<1.0) mg/dL Microbiology - Last 24 Hours (Table) 08/21/21 15:14 Blood Culture - Preliminary Blood No Growth after 24 hours
[2021-08-22] MEDS: POTASSIUM CHLORIDE 10 MEQ in WATER FOR INJECTION 1 100ML.BAG IVPB SCH ×4 (15:06→20:40)
[2021-08-22] MEDS: HYDROcodone/APAP 5-325MG 1 EACH TAB PO PRN (15:15)
--- NOTE | 2021-08-22 16:54 | PN ---
PROGRESS NOTE DATE OF SERVICE: 08/22/2021 REASON FOR FOLLOWUP: Infected sacral pressure ulcer with bacteremia. INTERVAL HISTORY: Patient is afebrile. The patient is currently sleepy and apparently he did receive some Dilaudid last night per the at the bedside. No vomiting, diarrhea or any other changes reported. PHYSICAL EXAMINATION: Blood pressure 121/68 with a pulse of 68, temperature 98.8. He is 91% on room air. General description is a middle-aged male lying in bed in no distress. Respiratory system: Unlabored breathing, clear to auscultation anteriorly. Heart S1, S2. Regular rate and rhythm. Abdomen soft, no tenderness. Wound currently dressed. LABS: Hemoglobin is 8, white count 6.3, creatinine 0.34. DIAGNOSTIC IMPRESSION AND PLAN: Patient with infected sacral pressure ulcer, concern for underlying osteomyelitis. Culture positive for MRSA and anaerobes with anaerobe bacteremia. Patient is covered with Unasyn and vancomycin that will be continued waiting for further surgical procedure. Once cleared by surgery he will be able to go home to continue the antibiotic in the outpatient setting. per the wound care team. MMODL / IJN: [id number] /
[2021-08-23] MEDS: HYDROmorphone 1 MG/ML 1 ML SYRINGE IVP PRN ×4 (00:11→20:30)
[2021-08-23] MEDS: HEPARIN SODIUM,PORCINE/PF 5,000 UNIT/0.5 ML SYRINGE SQ SCH ×3 (00:14→17:19)
[2021-08-23] MEDS: AMPICILLIN-SULBACTAM 3 GM in SODIUM CHLORIDE 0.9% 100 ML IVPB SCH ×4 (00:14→17:41)
[2021-08-23] MEDS: VANCOMYCIN 1,250 MG in SODIUM CHLORIDE 0.9% 250 ML IVPB SCH ×4 (02:24→23:06)
[2021-08-23] MEDS: SODIUM CHLORIDE 0.9% 1,000 ML IV SCH ×2 (02:24→17:43)
[2021-08-23] MEDS: IPRATROPIUM-ALBUTEROL 3 ML NEB INHALATION SCH ×4 (07:11→19:14)
[2021-08-23] MEDS ORDERED: IV FLUID CONTINUATION 1,000 ML IV ONE ×2 (09:02)
[2021-08-23 09:25] LABS: Basophils % (A) 0 %; Eosinophils # (A) 0.1 k/uL (0-0.7); Eosinophils % (A) 2 %; HCT 23.3 % (39.0-53.0); HGB 7.5 gm/dL (13.0-17.5); Lymphocytes # (A) 1.4 k/uL (1.0-4.8); Lymphocytes % (A) 22 %; MCH 30.6 pg (25.0-35.0); MCHC 32.3 g/dL (31.0-37.0); MCV 94.8 fL (80.0-100.0); Mean Platelet Volume 7.3; Monocytes # (A) 0.3 k/uL (0-1.0); Monocytes % (A) 6 %; Neutrophils # (A) 4.2 k/uL (1.3-7.7); Neutrophils % (A) 69 %; Platelet Count 636 k/uL (150-450); RBC 2.46 m/uL (4.30-5.90); RDW 14.5 % (11.5-15.5); WBC 6.2 k/uL (3.8-10.6)
[2021-08-23 09:33] LABS: Glucose,Whole Blood 96 mg/dL (75-99)
[2021-08-23 09:36] LABS: ALT 16 U/L (4-49); AST 23 U/L (17-59); African American GFR (CKD) >90 (>60 ml/min/1.73 sqM); Albumin 1.9 g/dL (3.5-5.0); Albumin/Globulin Ratio 0.6; Alkaline Phosphatase 100 U/L (38-126); Anion Gap 2 mmol/L; Blood Urea Nitrogen <2 mg/dL (9-20); Calcium 7.3 mg/dL (8.4-10.2); Carbon Dioxide 22 mmol/L (22-30); Chloride 108 mmol/L (98-107); Glucose 97 mg/dL (74-99); Magnesium 1.9 mg/dL (1.6-2.3); Non-African American GFR(CKD) >90 (>60 ml/min/1.73 sqM); Potassium 3.5 mmol/L (3.5-5.1); Sodium 132 mmol/L (137-145); Total Bilirubin 0.2 mg/dL (0.2-1.3); Total Protein 4.9 g/dL (6.3-8.2)
[2021-08-23] MEDS ORDERED: ONDANSETRON 4 MG/2 ML VIAL ONE (09:36)
[2021-08-23] MEDS ORDERED: ONDANSETRON 4 MG/2 ML VIAL IVP ONE (09:48)
[2021-08-23] MEDS ORDERED: PROPOFOL 10 MG/ML 20 ML VIAL IV ONE (11:31)
[2021-08-23] MEDS ORDERED: GLYCOPYRROLATE 0.2 MG/ML 2 ML VIAL ONE (11:31)
[2021-08-23] MEDS ORDERED: PHENYLEPHRINE-0.9% NACL SYG 1,000 MCG/10 ML SYRINGE ONE (11:31)
[2021-08-23] MEDS ORDERED: LIDOCAINE 1% INJ 10MG/ML (20 ML MDV) ONE (11:31)
[2021-08-23] MEDS ORDERED: NEOSTIGMINE 1 MG/ML 10 ML VIAL ONE (11:31)
[2021-08-23] MEDS ORDERED: ROCURONIUM 10 MG/ML (5 ML VIAL) IV ONE (11:31)
[2021-08-23] MEDS ORDERED: .fentaNYL (PF) 50 MCG/ML 2 ML AMP ONE (11:31)
--- NOTE | 2021-08-23 11:43 | P.PN ---
<Mo King - Last Filed: 08/23/21 11:39> Subjective Progress Note Date: 08/23/21 Hospital course: Patient is a 55-year-old male with a PMH of adrenoleukodystrophy, essentially bedbound who was brought into the emergency room by his for buttock ulcer, worsening mental status, and fever in 08/20/21. at this time patient was found to be septic with heart rate of 110, temperature 100.4F, and WBC count of 34.7. in addition patient was found to be significantly hypokalemic with potassium of 2.6. Urinalysis contaminated but concerning for positive for infection with fin dings of protein, ketones, blood, leukocytes, 16 RBCs, and 79 WBCs. patient was admitted under our services with consultation togeneral surgery and infectious disease. patient underwent debridement of sacral ulcer on 08/12/21 and underwent a second debridement in OR with Dr. Perez on 08/17/21. During second surgical debridement, surgeon recommending that patient may need diverging colostomy secondary to sacral decubitus ulcer with exposed bone. Wound vac was placed to sacral region. Blood culture is positive for Bacterpodes fragillis, urinalysis positive for MRSA, and tissue Gram stain from sacral ulcer positive for MRSA and diphtheroid species. patient remains on IV antibiotics vancomycin and Unasyn. Patient scheduled to undergo colostomy placement in 08/23/[address] Perez. Physical exam: Patient seen and fully evaluated at the bedside this morning when he was down in preop preparing to be taken back for planned colostomy. Patient's at bedside. Patient denies having any complaints or concerns this morning. Morning potassium is stabilized at 3.5, magnesium of 1.9, and hemoglobin remained stable as well except 7.5. Patient scheduled for surgery this morning at 11 AM. Patient to continue IV antibiotics with Unasyn and vancomycin for treatment of MRSA diphtheroid species infected wound, MRSA UTI and Bacteroides fragillis Bacteremia Vital signs reviewed and stable. General: Nontoxic, no distress and appears chronically ill Derm: Skin warm and dry, normal coloration for ethnicity. Dressing in place to sacral/coccyx region with Wound Vac. Head: Atraumatic, normocephalic and symmetric. very hard of hearing. Eyes: no lid lag, and anicteric sclera Mouth: no lip lesions, mucus membranes moist Cardiovascular: regular rate and rhythm with normal S1S2, no murmur, positive posterior tibial pulses bilaterally, and cap refill < 2 seconds. Lungs: Respirations even, regular, and unlabored on room air. Lungs CTA bi laterally, no rhonchi, no rales, no wheezing, and no accessory muscle usage. Abdominal: soft, nontender to palpation, no guarding, no appreciable organomegaly Ext: Bed bound, limited movement in BLE, sensation and movement intact to BUE. diffuse muscle atrophy, no contractures. Neuro: Speech clear, face symmetrical Psych: Alert and oriented to person, place, and situation. Appropriate and pleasant affect. Assessment and Plan of Care: Sepsis secondary to large stage IV sacral ulcer Infected sacral ulcer positive for MRSA diphtheroid species status post debridement x 2 with wound vac placement MRSA UTI Bacteroides fragillis Bacteremia -CT abd/pelvis pending concern for abdominal source re: bacteremia -Blood culture is positive for Bacterpodes fragillis. -Urinalysis positive for MRSA -Tissue Gram stain from sacral ulcer positive for MRSA and diphtheroid species -Infectious disease following -Gen. surgery following, patient to OR today to undergo colostomy placement secondary to sacral decubitus ulcer with exposed bone. -Patient underwent debridement of sacral ulcer on 08/12/21 and underwent a sec ond debridement in OR on 08/17/[address] Perez. -Symptomatic care and pain management -Turn every 2 hours and offload pressure from sacral region -Wound care and management of wound VAC -Continuation of IV antibiotics: Unasyn and vancomycin Hypokalemia, resolved -We will continue to monitor with repeat a.m. labs. Normocytic normochromic anemia, chronic of unclear etiology, stable at this time -Hemoglobin 7.5, we will continue to monitor closely with repeat a.m. labs. Thrombocytosis, suspected reactive with dehydration and acute stressors -Continued close monitoring. -Continue with gentle hydration -DVT prophylaxis with heparin 5000 units subcu every 8 hours. Mild hyponatremia, sodium 132 -Patient placed back on IV fluids on 08/20/21 for gentle hydration. -We will continue to monitor with repeat a.m. labs. Adrenoleukodystrophy -Continue with safe and supportive care providing assistance as needed. CODE STATUS: Full code DVT prophylaxis: Heparin Discussed with: Pt, pt's and RN Anticipated discharge date: Clinical course to determine Anticipated discharge place: Home in care of with home care A total of 45 minutes was spent on the care of this complex patient more than 50% of the time was spent in counseling and care coordination. Objective - Vital Signs Vital signs: Vital Signs Temp 99.4 F 08/23/21 09:02 Pulse 73 08/23/21 09:02 Resp 18 08/23/21 09:02 BP 111/64 08/23/21 09:02 Pulse Ox 97 08/23/21 09:02 Intake & Output 08/22/21 08/23/21 08/23/21 18:59 06:59 18:59 Intake Total 400 200 Output Total 1400 2000 Balance -1400 -1600 200 Intake: IV 200 Oral 400 Output: Urine 1400 2000 Other: Voiding Method Indwelling Catheter Indwelling Catheter - Labs CBC & Chem 7: 08/23/21 09:12 08/23/21 09:12 Labs: Abnormal Lab Results - Last 24 Hours (Table) 08/23/21 08/23/21 Range/Units 09:12 09:12 RBC 2.46 L (4.30-5.90) m/uL Hgb 7.5 L (13.0-17.5) gm/dL Hct 23.3 L (39.0-53.0) % Plt Count 636 H (150-450) k/uL Sodium 132 L (137-145) mmol/L Chloride 108 H (98-107) mmol/L BUN <2 L (9-20) mg/dL Creatinine 0.34 L (0.66-1.25) mg/dL Calcium 7.3 L (8.4-10.2) mg/dL Total Protein 4.9 L (6.3-8.2) g/dL Albumin 1.9 L (3.5-5.0) g/dL Microbiology - Last 24 Hours (Table) 08/22/21 07:30 Blood Culture - Preliminary Blood No Growth after 24 hours 08/21/21 15:14 Blood Culture - Preliminary Blood No Growth after 24 hours <Jonathon Tolentino - Last Filed: 08/23/21 13:57> Subjective I reviewed the documentation as provided by the TAMIE above, who is the original author of this note. I agree with the documented assessment and plan, with the following changes: None Objective - Vital Signs Vital signs: Vital Signs Temp 98.2 F 08/23/21 13:29 Pulse 71 08/23/21 13:29 Resp 16 08/23/21 13:29 BP 147/76 08/23/21 13:29 Pulse Ox 91 L 08/23/21 13:29 Intake & Output 08/22/21 08/23/21 08/23/21 18:59 06:59 18:59 Intake Total 400 600 Output Total 1400 2000 70 Balance -1400 -1600 530 Weight 61.235 kg Intake: IV 600 Oral 400 Output: Urine 1400 2000 50 Estimated Blood Loss 20 Other: Voiding Method Indwelling Catheter Indwelling Catheter - Labs CBC & Chem 7: 08/23/21 09:12 08/23/21 09:12 Labs: Abnormal Lab Results - Last 24 Hours (Table) 08/23/21 08/23/21 Range/Units 09:12 09:12 RBC 2.46 L (4.30-5.90) m/uL Hgb 7.5 L (13.0-17.5) gm/dL Hct 23.3 L (39.0-53.0) % Plt Count 636 H (150-450) k/uL Sodium 132 L (137-145) mmol/L Chloride 108 H (98-107) mmol/L BUN <2 L (9-20) mg/dL Creatinine 0.34 L (0.66-1.25) mg/dL Calcium 7.3 L (8.4-10.2) mg/dL Total Protein 4.9 L (6.3-8.2) g/dL Albumin 1.9 L (3.5-5.0) g/dL Microbiology - Last 24 Hours (Table) 08/22/21 07:30 Blood Culture - Preliminary Blood No Growth after 24 hours 08/21/21 15:14 Blood Culture - Preliminary Blood No Growth after 24 hours
--- NOTE | 2021-08-23 12:35 | P.OP ---
Date of Procedure: 08/23/21 Preoperative Diagnosis: Stage IV decubitus ulcer Postoperative Diagnosis: Stage IV decubitus ulcer Procedure(s) Performed: Diverting colostomy Repair of incisional hernia Partial omentectomy Anesthesia: IVETTE Surgeon: Spencer Perez Estimated Blood Loss (ml): 10 Pathology: other (Omentum) Condition: stable Disposition: PACU Description of Procedure: The patient's placed on the operative table in the supine position. He received general endotracheal tube anesthesia. His abdomen was prepped. Sterile fashion. The abdomen was entered through a midline incision. There was a ventral hernia with omentum incarcerated within the hernia seen. The midline. The omentum was transected sent to pathology. The fascia was opened. The sigmoid colon problem. The attachments and sigmoid colon were divided using left cautery. Once the sigmoid colon was mobilized. It was transected with the GOKUL stapler. A suitable spot for the colostomy was chosen in the left abdominal wall. The colostomy was brought through the abdominal wall. The fascia was closed with looped #1 PDS suture. The hernia was repaired during colostomy closure. The colostomy matured with 3-0 Vicryl suture. Patient top she will was sent to recovery room in stable condition.
[2021-08-23] MEDS: NICOTINE 21MG/24HR PATCH TRANSDERM SCH (14:04)
[2021-08-24] MEDS: AMPICILLIN-SULBACTAM 3 GM in SODIUM CHLORIDE 0.9% 100 ML IVPB SCH ×4 (01:18→18:47)
[2021-08-24] MEDS: HEPARIN SODIUM,PORCINE/PF 5,000 UNIT/0.5 ML SYRINGE SQ SCH ×3 (01:20→16:50)
[2021-08-24] MEDS: HYDROmorphone 1 MG/ML 1 ML SYRINGE IVP PRN ×5 (01:21→22:45)
[2021-08-24 06:03] LABS: HCT 27.4 % (39.0-53.0); MCH 31.6 pg (25.0-35.0); MCHC 32.8 g/dL (31.0-37.0); MCV 96.5 fL (80.0-100.0); Mean Platelet Volume 7.7; Platelet Count 472 k/uL (150-450); RBC 2.84 m/uL (4.30-5.90); RDW 14.3 % (11.5-15.5); WBC 7.8 k/uL (3.8-10.6)
[2021-08-24 06:16] LABS: African American GFR (CKD) >90 (>60 ml/min/1.73 sqM); Anion Gap 6 mmol/L; Blood Urea Nitrogen 3 mg/dL (9-20); Calcium 7.5 mg/dL (8.4-10.2); Carbon Dioxide 19 mmol/L (22-30); Chloride 108 mmol/L (98-107); Glucose 100 mg/dL (74-99); Magnesium 1.9 mg/dL (1.6-2.3); Non-African American GFR(CKD) >90 (>60 ml/min/1.73 sqM); Potassium 3.6 mmol/L (3.5-5.1); Sodium 133 mmol/L (137-145)
[2021-08-24] MEDS: IPRATROPIUM-ALBUTEROL 3 ML NEB INHALATION SCH ×5 (07:32→20:17)
[2021-08-24] MEDS: SODIUM CHLORIDE 0.9% 1,000 ML IV SCH ×3 (08:45→18:47)
[2021-08-24] MEDS: NICOTINE 21MG/24HR PATCH TRANSDERM SCH (08:48)
[2021-08-24] MEDS: VANCOMYCIN 1,250 MG in SODIUM CHLORIDE 0.9% 250 ML IVPB SCH ×3 (08:53→22:40)
--- NOTE | 2021-08-24 12:21 | P.PN ---
Subjective Progress Note Date: 08/24/21 CHIEF COMPLAINT: Sacral decubitus ulcer HISTORY OF PRESENT ILLNESS: Patient is status post diverting colostomy, repair of incisional hernia, partial omentectomy postop day #1. Patient also required 2 debridements on his sacral ulcer during this admission. Patient did have pain through the night. Currently pain is controlled. He is sleeping comfortably. is at bedside. Afebrile. WBC 7.8 Hgb has gone up from 7.5-9 potassium 3.6 Patient seen and examined with Dr. gama PHYSICAL EXAM: VITAL SIGNS: Reviewed. GENERAL: Well-developed in no acute distress. HEENT: No sclera icterus. Extraocular movements grossly intact. Moist buccal mucosa. Head is atraumatic, normocephalic. ABDOMEN: Soft. Nondistended. Ostomy present ASSESSMENT: 1. Stage IV infected sacral decubitus ulcer status post debridement 2 2. Status post diverting colostomy due to stage IV sacral decubitus ulcer 2. Hypokalemia improved 3. Sepsis due to large sacral decubitus ulcer 4. History of adrenaleukodystrophy PLAN: -Continue local wound care -Continue wound VAC per wound care service -Continue IV antibiotics per ID service -Continue regular diet Physician Relay Assembler note has been reviewed by physician. Signing provider agrees with the documented findings, assessment, and plan of care. Objective - Vital Signs Vital signs: Vital Signs Temp 98.1 F 08/24/21 04:57 Pulse 73 08/24/21 04:57 Resp 16 08/23/21 21:00 BP 133/76 08/24/21 04:57 Pulse Ox 95 08/24/21 04:57 Intake & Output 08/23/21 08/24/21 08/24/21 18:59 06:59 18:59 Intake Total 600 Output Total 770 500 300 Balance -170 -500 -300 Weight 61.235 kg Intake: IV 600 Output: Urine 750 500 300 Estimated Blood Loss 20 Other: Voiding Method Indwelling Catheter Indwelling Catheter - Labs CBC & Chem 7: 08/24/21 05:23 08/24/21 05:23 Labs: Abnormal Lab Results - Last 24 Hours (Table) 08/24/21 08/24/21 Range/Units 05:23 05:23 RBC 2.84 L (4.30-5.90) m/uL Hgb 9.0 L D (13.0-17.5) gm/dL Hct 27.4 L (39.0-53.0) % Plt Count 472 H (150-450) k/uL Sodium 133 L (137-145) mmol/L Chloride 108 H (98-107) mmol/L Carbon Dioxide 19 L (22-30) mmol/L BUN 3 L (9-20) mg/dL Creatinine 0.40 L (0.66-1.25) mg/dL Glucose 100 H (74-99) mg/dL Calcium 7.5 L (8.4-10.2) mg/dL Microbiology - Last 24 Hours (Table) 08/22/21 07:30 Blood Culture - Preliminary Blood No Growth after 48 hours 08/21/21 15:14 Blood Culture - Preliminary Blood No Growth after 48 hours
--- NOTE | 2021-08-24 15:24 | P.PN ---
Subjective Progress Note Date: 08/24/21 Pt is s/p colostomy and doing well on POD 1. Discharge planning with likely plan to go home tomorrow if colostomy is functioning and patient tolerating a diet. Objective - Vital Signs Vital signs: Vital Signs Temp 98.7 F 08/24/21 13:23 Pulse 74 08/24/21 13:23 Resp 16 08/24/21 13:23 BP 120/70 08/24/21 13:23 Pulse Ox 96 08/24/21 13:23 Intake & Output 08/23/21 08/24/21 08/24/21 18:59 06:59 18:59 Intake Total 600 Output Total 931 419 0853 Balance -170 -500 -1300 Weight 61.235 kg Intake: IV 600 Output: Urine 482 291 8925 Estimated Blood Loss 20 Other: Voiding Method Indwelling Catheter Indwelling Catheter - Exam Gen: awake, alert HEENT: normocephalic, atraumatic, good hearing acuity, moist mucous membranes Resp: good air exchange, breathing comfortably with no accessory muscle use CVS: good distal perfusion x 4, GI: soft, NTTP, ND : no SPT, no CVAT, castillo catheter is present, colostomy MSK: no pitting edema, no clubbing, wound VAC Neuro: non-focal, moving all extremities Psych: cooperative, euthymic mood - Labs CBC & Chem 7: 08/24/21 05:23 08/24/21 05:23 Labs: Abnormal Lab Results - Last 24 Hours (Table) 08/24/21 08/24/21 Range/Units 05:23 05:23 RBC 2.84 L (4.30-5.90) m/uL Hgb 9.0 L D (13.0-17.5) gm/dL Hct 27.4 L (39.0-53.0) % Plt Count 472 H (150-450) k/uL Sodium 133 L (137-145) mmol/L Chloride 108 H (98-107) mmol/L Carbon Dioxide 19 L (22-30) mmol/L BUN 3 L (9-20) mg/dL Creatinine 0.40 L (0.66-1.25) mg/dL Glucose 100 H (74-99) mg/dL Calcium 7.5 L (8.4-10.2) mg/dL Microbiology - Last 24 Hours (Table) 08/22/21 07:30 Blood Culture - Preliminary Blood No Growth after 48 hours 08/21/21 15:14 Blood Culture - Preliminary Blood No Growth after 48 hours Assessment and Plan Assessment: Sepsis secondary to large stage IV sacral ulcer Infected sacral ulcer positive for MRSA diphtheroid species status post debridement x 2 with wound vac placement MRSA UTI Bacteroides fragillis Bacteremia -Infectious disease following -Gen. surgery following, -s/p colostomy on 08/23 -Patient underwent debridement of sacral ulcer on 08/12/21 and underwent a second debridement in OR on 08/17/[address] Perez. -Symptomatic care and pain management -Turn every 2 hours and offload pressure from sacral region -Wound care and management of wound VAC -Continuation of IV antibiotics: Unasyn and vancomycin Hypokalemia, resolved -We will continue to monitor with repeat a.m. labs. Normocytic normochromic anemia, chronic of unclear etiology, stable at this time -Hemoglobin 7.5, we will continue to monitor closely with repeat a.m. labs. Thrombocytosis, suspected reactive with dehydration and acute stressors -Continued close monitoring. -Continue with gentle hydration -DVT prophylaxis with heparin 5000 units subcu every 8 hours. Mild hyponatremia, sodium 132 -Patient placed back on IV fluids on 08/20/21 for gentle hydration. -We will continue to monitor with repeat a.m. labs. Adrenoleukodystrophy -Continue with safe and supportive care providing assistance as needed. CODE STATUS: Full code DVT prophylaxis: Heparin Discussed with: Pt, pt's and RN Anticipated discharge place: Home in care of with home care
[2021-08-24] MEDS: ALPRAZolam 0.5 MG TAB PO PRN (19:27)
[2021-08-24] MEDS: HYDROcodone/APAP 5-325MG 1 EACH TAB PO PRN (19:27)
[2021-08-24] MEDS ORDERED: VANCOMYCIN TROUGH DUE 1 EACH MISC MISCELLANE ONE (22:00)
--- NOTE | 2021-08-24 23:22 | PN ---
PROGRESS NOTE DATE OF SERVICE: 08/24/2021 REASON FOR FOLLOWUP: Infected sacral pressure ulcer with bacteremia. INTERVAL HISTORY: The patient is afebrile. The patient is breathing comfortably. The patient denies having any chest pain, shortness of breath or cough. No abdominal pain or worsening pain to the lower back wound area. PHYSICAL EXAMINATION: Blood pressure 119/70 with a pulse of 70, temperature 97.4. He is 95% on room air. General description is a middle-aged male lying in bed in no distress. Respiratory system: Unlabored breathing, clear to auscultation anteriorly. Heart S1, S2. Regular rate and rhythm. Abdomen soft, no tenderness. LABS: Hemoglobin is 9, white count 7.8, creatinine 0.40. DIAGNOSTIC IMPRESSION AND PLAN: Patient with an infected sacral pressure ulcer with bacteremia. Patient is status post debridement. Blood culture repeat has been negative so far. Patient to continue with Unasyn and vancomycin. Already got a PICC line. Local care per the wound care team. Continue with supportive care. MMODL / IJN: [id number] /
[2021-08-25] MEDS: AMPICILLIN-SULBACTAM 3 GM in SODIUM CHLORIDE 0.9% 100 ML IVPB SCH ×2 (02:20→05:17)
[2021-08-25] MEDS: HEPARIN SODIUM,PORCINE/PF 5,000 UNIT/0.5 ML SYRINGE SQ SCH ×3 (02:20→15:37)
[2021-08-25] MEDS: SODIUM CHLORIDE 0.9% 1,000 ML IV SCH ×2 (05:17→20:14)
[2021-08-25] MEDS: MORPHINE SULFATE 2 MG/ML SYRINGE IVP PRN (05:18)
[2021-08-25] MEDS: IPRATROPIUM-ALBUTEROL 3 ML NEB INHALATION SCH ×4 (07:26→19:29)
[2021-08-25] MEDS: VANCOMYCIN 1,250 MG in SODIUM CHLORIDE 0.9% 250 ML IVPB SCH (08:04)
[2021-08-25] MEDS: HYDROmorphone 1 MG/ML 1 ML SYRINGE IVP PRN ×3 (08:04→20:14)
[2021-08-25] MEDS: NICOTINE 21MG/24HR PATCH TRANSDERM SCH (08:09)
--- NOTE | 2021-08-25 11:19 | P.PN ---
Progress Note - Text Progress Note Date: 08/25/21 The patient status post diverting colostomy for stage IV decubitus ulcer. He's had minimal output through the colostomy. Abdomen soft. Patient continue receive supportive care. We will add IV Reglan.
[2021-08-25] MEDS: ERTAPENEM 1 GM in SODIUM CHLORIDE 0.9% 50 ML IVPB SCH (12:55)
[2021-08-25] MEDS: METOCLOPRAMIDE 5 MG/ML 2 ML VIAL IVP SCH ×2 (12:55→18:18)
--- NOTE | 2021-08-25 13:12 | XR ---
2 view abdomen HISTORY: No output new colostomy 2 views the abdomen on 3 images, comparison to CT scan 08/15/2021 Retained contrast is present within the colon. Surgical gerhard are present over the midline. Basilar density may reflect atelectasis in the retrocardiac location. No evident bowel obstruction. Contrast suspected within the pelvis may be within the rectum. Pneumoperitoneum is likely postoperative. Ther e are overlying artifacts. Is a PICC line present. Distal tip courses to the level of the cavoatrial junction. IMPRESSION: Pneumoperitoneum, correlate for appropriate recent surgery. Nonspecific findings may be i ndicative of ileus, follow-up as indicated. Probable left lower lobe atelectasis versus pneumonia, di fficult to exclude effusion.
--- NOTE | 2021-08-25 13:28 | P.PN ---
Subjective Progress Note Date: 08/25/21 Pt is s/p colostomy and doing well on POD 2. He has not had significant oral intake, nor has he had significant output into the colostomy. is now amenable to sending patient to retirement facility, case management will work on this. Objective - Vital Signs Vital signs: Vital Signs Temp 97.8 F 08/25/21 11:13 Pulse 80 08/25/21 11:13 Resp 16 08/25/21 11:13 BP 123/74 08/25/21 11:13 Pulse Ox 95 08/25/21 11:13 Intake & Output 08/24/21 08/25/21 08/25/21 18:59 06:59 18:59 Intake Total 600 1350 Output Total 1600 690 450 Balance -1000 660 -450 Weight 61.235 kg Intake: Intake, IV Titration 600 1350 Amount Ampicillin-Sulbactam 3 gm 200 In Sodium Chloride 0.9% 100 ml @ 200 mls/hr IVPB Q6HR [facility] Rx#:[id number] Sodium Chloride 0.9% 1, 600 900 000 ml @ 75 mls/hr IV . [id number] [facility] Rx#:[id number] Vancomycin 1,250 mg In 250 Sodium Chloride 0.9% 250 ml @ 125 mls/hr IVPB Q8H [facility] Rx#:[id number] Output: Drainage 15 Sacrum 15 Urine 1600 675 450 Uretheral (Castillo) 75 Other: Voiding Method Indwelling Catheter Indwelling Catheter Indwelling Catheter - Exam Gen: awake, alert HEENT: normocephalic, atraumatic, good hearing acuity, moist mucous membranes Resp: good air exchange, breathing comfortably with no accessory muscle use CVS: good distal perfusion x 4, GI: soft, NTTP, ND : no SPT, no CVAT, castillo catheter is present, colostomy MSK: no pitting edema, no clubbing, wound VAC Neuro: non-focal, moving all extremities Psych: cooperative, euthymic mood - Labs CBC & Chem 7: 08/24/21 05:23 08/24/21 05:23 Labs: Microbiology - Last 24 Hours (Table) 08/22/21 07:30 Blood Culture - Preliminary Blood No Growth after 72 hours 08/21/21 15:14 Blood Culture - Preliminary Blood No Growth after 72 hours Assessment and Plan Assessment: Sepsis secondary to large stage IV sacral ulcer Infected sacral ulcer positive for MRSA diphtheroid species status post debridement x 2 with wound vac placement MRSA UTI Bacteroides fragillis Bacteremia -Infectious disease following -Gen. surgery following, -s/p colostomy on 08/23 -Patient underwent debridement of sacral ulcer on 08/12/21 and underwent a second debridement in OR on 08/17/[address] Perez. -Symptomatic care and pain management -Turn every 2 hours and offload pressure from sacral region -Wound care and management of wound VAC -Continuation of IV antibiotics: Unasyn and vancomycin Hypokalemia, resolved -We will continue to monitor with repeat a.m. labs. Normocytic normochromic anemia, chronic of unclear etiology, stable at this time -Hemoglobin 7.5, we will continue to monitor closely with repeat a.m. labs. Thrombocytosis, suspected reactive with dehydration and acute stressors -Continued close monitoring. -Continue with gentle hydration -DVT prophylaxis with heparin 5000 units subcu every 8 hours. Mild hyponatremia, sodium 132 -Patient placed back on IV fluids on 08/20/21 for gentle hydration. -We will continue to monitor with repeat a.m. labs. Adrenoleukodystrophy -Continue with safe and supportive care providing assistance as needed. CODE STATUS: Full code DVT prophylaxis: Heparin Discussed with: Pt, pt's and RN Anticipated discharge place: Home in care of with home care
--- NOTE | 2021-08-25 14:57 | PN ---
PROGRESS NOTE DATE OF SERVICE: 08/25/2021 REASON FOR FOLLOWUP: Infected pressure ulcer with bacteremia. INTERVAL HISTORY: Patient is afebrile. The patient is currently breathing comfortably. The patient denies having any chest pain. No shortness of breath. No cough. No abdominal pain or diarrhea. PHYSICAL EXAMINATION: Blood pressure 133/74, pulse of 80, temperature is 97.8. He is 95% on room air. General description is a middle-aged male lying in bed in no distress. Respiratory system: Unlabored breathing, clear to auscultation anteriorly. Heart S1, S2. Regular rate and rhythm. Abdomen: Soft, no tenderness. LABS: No new labs have been obtained today. Vancomycin trough slightly high at 22.3. DIAGNOSTIC IMPRESSION AND PLAN: Patient with infected sacral pressure ulcer, stage IV with bacteremia. Local culture positive for MRSA. The patient did have in the blood. Plan is to switch Unasyn to Invanz with ease of admission in the outpatient setting along with vancomycin, pharmacy to dose, target of 15 for a total of 6 weeks. Local wound care per the wound care team and close outpatient followup. MMODL / IJN: [id number] /
[2021-08-25] MEDS: VANCOMYCIN 1,000 MG in SODIUM CHLORIDE 0.9% 250 ML IVPB SCH (15:38)
[2021-08-26] MEDS: METOCLOPRAMIDE 5 MG/ML 2 ML VIAL IVP SCH ×4 (00:42→17:58)
[2021-08-26] MEDS: HEPARIN SODIUM,PORCINE/PF 5,000 UNIT/0.5 ML SYRINGE SQ SCH ×3 (00:42→16:30)
[2021-08-26] MEDS: VANCOMYCIN 1,000 MG in SODIUM CHLORIDE 0.9% 250 ML IVPB SCH ×3 (00:43→17:55)
[2021-08-26] MEDS: HYDROmorphone 1 MG/ML 1 ML SYRINGE IVP PRN ×3 (01:53→09:47)
[2021-08-26 07:33] LABS: Basophils % (A) 0 %; Eosinophils # (A) 0.2 k/uL (0-0.7); Eosinophils % (A) 2 %; HCT 24.4 % (39.0-53.0); Hypochromasia Slight; Lymphocytes # (A) 1.4 k/uL (1.0-4.8); Lymphocytes % (A) 20 %; MCH 31.8 pg (25.0-35.0); MCHC 32.7 g/dL (31.0-37.0); MCV 97.4 fL (80.0-100.0); Monocytes # (A) 0.3 k/uL (0-1.0); Monocytes % (A) 5 %; Neutrophils # (A) 4.9 k/uL (1.3-7.7); Neutrophils % (A) 71 %; Platelet Count 526 k/uL (150-450); RDW 14.2 % (11.5-15.5)
[2021-08-26 07:49] LABS: African American GFR (CKD) >90 (>60 ml/min/1.73 sqM); Anion Gap 6 mmol/L; Blood Urea Nitrogen 2 mg/dL (9-20); Calcium 7.4 mg/dL (8.4-10.2); Carbon Dioxide 20 mmol/L (22-30); Chloride 106 mmol/L (98-107); Glucose 92 mg/dL (74-99); Magnesium 1.8 mg/dL (1.6-2.3); Non-African American GFR(CKD) >90 (>60 ml/min/1.73 sqM); Potassium 2.8 mmol/L (3.5-5.1); Sodium 132 mmol/L (137-145)
[2021-08-26] MEDS: IPRATROPIUM-ALBUTEROL 3 ML NEB INHALATION SCH ×4 (08:15→20:51)
[2021-08-26] MEDS ORDERED: POTASSIUM CHLORIDE ER 20 MEQ TAB.ER PO STA (09:10)
[2021-08-26] MEDS: NICOTINE 21MG/24HR PATCH TRANSDERM SCH (09:35)
[2021-08-26] MEDS: ERTAPENEM 1 GM in SODIUM CHLORIDE 0.9% 50 ML IVPB SCH (09:39)
[2021-08-26] MEDS: POTASSIUM CHLORIDE 20 MEQ in WATER FOR INJECTION 1 100ML.BAG IVPB SCH ×3 (10:41→14:59)
[2021-08-26] MEDS: SODIUM CHLORIDE 0.9% 1,000 ML IV SCH ×2 (12:37→15:00)
--- NOTE | 2021-08-26 12:41 | P.PN ---
Subjective Progress Note Date: 08/26/21 Pt is s/p colostomy and doing well on POD 3. He still has not had significant oral intake, nor has he had significant output into the colostomy; but informs me that he is willing to try some food today. Pt has indicated that he would not want CPR should the need arise, code status changed. Objective - Vital Signs Vital signs: Vital Signs Temp 98.1 F 08/26/21 04:36 Pulse 76 08/26/21 11:04 Resp 18 08/26/21 04:36 BP 119/66 08/26/21 04:36 Pulse Ox 95 08/26/21 04:36 Intake & Output 08/25/21 08/26/21 08/26/21 18:59 06:59 18:59 Intake Total 1250 Output Total 750 1000 Balance -750 250 Weight 61.235 kg Intake: Intake, IV Titration 1150 Amount Sodium Chloride 0.9% 1, 900 000 ml @ 75 mls/hr IV . [id number] [facility] Rx#:[id number] Vancomycin 1,250 mg In 250 Sodium Chloride 0.9% 250 ml @ 125 mls/hr IVPB Q8H [facility] Rx#:[id number] Oral 100 Output: Drainage 200 Sacrum 200 Urine 750 800 Other: Voiding Method Indwelling Catheter Indwelling Catheter Indwelling Catheter - Exam Gen: awake, alert HEENT: normocephalic, atraumatic, good hearing acuity, moist mucous membranes Resp: good air exchange, breathing comfortably with no accessory muscle use CVS: good distal perfusion x 4, GI: soft, NTTP, ND : no SPT, no CVAT, castillo catheter is present, colostomy MSK: no pitting edema, no clubbing, wound VAC Neuro: non-focal, moving all extremities Psych: cooperative, euthymic mood - Labs CBC & Chem 7: 08/26/21 06:48 08/26/21 06:48 Labs: Abnormal Lab Results - Last 24 Hours (Table) 08/26/21 08/26/21 Range/Units 06:48 06:48 RBC 2.50 L (4.30-5.90) m/uL Hgb 8.0 L (13.0-17.5) gm/dL Hct 24.4 L (39.0-53.0) % Plt Count 526 H (150-450) k/uL Sodium 132 L (137-145) mmol/L Potassium 2.8 L (3.5-5.1) mmol/L Carbon Dioxide 20 L (22-30) mmol/L BUN 2 L (9-20) mg/dL Creatinine 0.40 L (0.66-1.25) mg/dL Calcium 7.4 L (8.4-10.2) mg/dL Microbiology - Last 24 Hours (Table) 08/22/21 07:30 Blood Culture - Preliminary Blood No Growth after 96 hours 08/21/21 15:14 Blood Culture - Preliminary Blood No Growth after 96 hours Assessment and Plan Assessment: Sepsis secondary to large stage IV sacral ulcer Infected sacral ulcer positive for MRSA diphtheroid species status post debridement x 2 with wound vac placement MRSA UTI Bacteroides fragillis Bacteremia -Infectious disease following -Gen. surgery following, -s/p colostomy on 08/23 -Patient underwent debridement of sacral ulcer on 08/12/21 and underwent a second debridement in OR on 08/17/[address] Perez. -Symptomatic care and pain management -Turn every 2 hours and offload pressure from sacral region -Wound care and management of wound VAC -Continuation of IV antibiotics: Ertapenem and vancomycin Hypokalemia, resolved -We will continue to monitor with repeat a.m. labs. Normocytic normochromic anemia, chronic of unclear etiology, stable at this time -Hemoglobin 7.5, we will continue to monitor closely with repeat a.m. labs. Thrombocytosis, suspected reactive with dehydration and acute stressors -Continued close monitoring. -Continue with gentle hydration -DVT prophylaxis with heparin 5000 units subcu every 8 hours. Mild hyponatremia, sodium 132 -Patient placed back on IV fluids on 08/20/21 for gentle hydration. -We will continue to monitor with repeat a.m. labs. Adrenoleukodystrophy -Continue with safe and supportive care providing assistance as needed. CODE STATUS: Full code DVT prophylaxis: Heparin Discussed with: Pt, pt's and RN Anticipated discharge place: [facility]
--- NOTE | 2021-08-26 14:02 | P.PN ---
Subjective Progress Note Date: 08/26/21 CHIEF COMPLAINT: Diverting colostomy HISTORY OF PRESENT ILLNESS: The patient is a 56-year-old male status post diverting ostomy for non-healing Stage IV decubitus ulcer. He denies any complaints. "I want to go home." ROS: No new chest pain. No shortness of breath. PHYSICAL EXAM: VITAL SIGNS: Reviewed CONSTITUTIONAL: Well developed and in no acute distress. EYES: Conjuctivae without sclera icterus. Extraocular movements grossly intact. HEAD, EARS, NOSE, THROAT: Moist buccal mucosa. Head is atraumatic, normocephalic. No nasal drainage. NECK: No thyroidomegaly. RESPIRATORY: Non-labored respirations and equal bilateral excursions. CARDIOVASCULAR: 2+ radial pulses. ABDOMEN: No peritonitis. Ostomy present MUSCULOSKELETAL: No gross deformity of the lower extremities noted. No clubb ing. No cyanosis. SKIN: Good skin turgor. Well perfused. NEUROLOGIC: Cranial nerves I through XII grossly intact. No focal or lateralizing signs. PSYCH: Appropriate affect. Alert and oriented to person, place and time. CLINICAL LABS: Reviewed ASSESSMENT: 1. Diverting colostomy 2. Stage IV ulcer decub PLAN: 1. Await bowel function from ostomy. Objective - Vital Signs Vital signs: Vital Signs Temp 98.9 F 08/26/21 13:00 Pulse 89 08/26/21 13:00 Resp 17 08/26/21 13:00 BP 125/70 08/26/21 13:00 Pulse Ox 94 L 08/26/21 13:00 Intake & Output 08/25/21 08/26/21 08/26/21 18:59 06:59 18:59 Intake Total 1250 Output Total 750 1000 Balance -750 250 Weight 61.235 kg Intake: Intake, IV Titration 1150 Amount Sodium Chloride 0.9% 1, 900 000 ml @ 75 mls/hr IV . [id number] [facility] Rx#:[id number] Vancomycin 1,250 mg In 250 Sodium Chloride 0.9% 250 ml @ 125 mls/hr IVPB Q8H [facility] Rx#:[id number] Oral 100 Output: Drainage 200 Sacrum 200 Urine 750 800 Other: Voiding Method Indwelling Catheter Indwelling Catheter Indwelling Catheter - Labs CBC & Chem 7: 08/26/21 06:48 08/26/21 06:48 Labs: Abnormal Lab Results - Last 24 Hours (Table) 08/26/21 08/26/21 Range/Units 06:48 06:48 RBC 2.50 L (4.30-5.90) m/uL Hgb 8.0 L (13.0-17.5) gm/dL Hct 24.4 L (39.0-53.0) % Plt Count 526 H (150-450) k/uL Sodium 132 L (137-145) mmol/L Potassium 2.8 L (3.5-5.1) mmol/L Carbon Dioxide 20 L (22-30) mmol/L BUN 2 L (9-20) mg/dL Creatinine 0.40 L (0.66-1.25) mg/dL Calcium 7.4 L (8.4-10.2) mg/dL Microbiology - Last 24 Hours (Table) 08/22/21 07:30 Blood Culture - Preliminary Blood No Growth after 96 hours 08/21/21 15:14 Blood Culture - Preliminary Blood No Growth after 96 hours Assessment and Plan (1) Colostomy in place Current Visit: Yes Status: Acute Code(s): Z93.3 - COLOSTOMY STATUS SNOMED Code(s): 256663116 (2) Pressure ulcer of sacral region, stage 4 Current Visit: Yes Status: Acute Code(s): L89.154 - PRESSURE ULCER OF SACRAL REGION, STAGE 4 SNOMED Code(s): 803516580
[2021-08-26] MEDS: HYDROmorphone 0.5 MG/0.5 ML SYRINGE IVP PRN ×2 (16:36→19:54)
[2021-08-27] MEDS: HEPARIN SODIUM,PORCINE/PF 5,000 UNIT/0.5 ML SYRINGE SQ SCH ×3 (00:04→17:01)
[2021-08-27] MEDS: METOCLOPRAMIDE 5 MG/ML 2 ML VIAL IVP SCH ×4 (00:04→17:51)
[2021-08-27] MEDS: VANCOMYCIN 1,000 MG in SODIUM CHLORIDE 0.9% 250 ML IVPB SCH ×2 (00:05→08:19)
[2021-08-27] MEDS: SODIUM CHLORIDE 0.9% 1,000 ML IV SCH ×2 (00:05→18:11)
[2021-08-27] MEDS ORDERED: VANCOMYCIN TROUGH DUE 1 EACH MISC MISCELLANE ONE (07:00)
[2021-08-27] MEDS: IPRATROPIUM-ALBUTEROL 3 ML NEB INHALATION SCH ×4 (07:46→19:51)
[2021-08-27] MEDS: NICOTINE 21MG/24HR PATCH TRANSDERM SCH (08:19)
--- NOTE | 2021-08-27 09:06 | PN ---
PROGRESS NOTE DATE OF SERVICE: 08/26/2021 REASON FOR FOLLOWUP: Infected sacral pressure ulcer with bacteremia. INTERVAL HISTORY: Patient is afebrile. The patient is currently breathing comfortably. Denies having any chest pain, shortness of breath or cough. No abdominal pain . PHYSICAL EXAMINATION: Blood pressure 136/66, pulse of 85, temperature 97.9. He is 94% on room air. General description is a middle-aged male lying in bed in no distress. Respiratory system: Unlabored breathing, is clear to auscultation anteriorly. Heart S1, S2. Regular rate and rhythm. Abdomen soft, no tenderness. LABS: Hemoglobin is 8, white count 7.03, creatinine 0.40. DIAGNOSTIC IMPRESSION AND PLAN: Patient with infected sacral pressure ulcer stage IV. Culture positive for MRSA in this patient who did have bacteremia. Patient is covered with Invanz and Vancomycin. The plan is for a total of 6 week course of therapy. Local wound care with wound VAC. Continue supportive care. MMODL / IJN: [id number] /
[2021-08-27] MEDS: ERTAPENEM 1 GM in SODIUM CHLORIDE 0.9% 50 ML IVPB SCH (10:28)
--- NOTE | 2021-08-27 11:17 | P.PN ---
Subjective Progress Note Date: 08/27/21 Has eaten small amounts since yesterday, but still has no ostomy output as of yet. Objective - Vital Signs Vital signs: Vital Signs Temp 97.7 F 08/27/21 05:00 Pulse 84 08/27/21 11:04 Resp 16 08/27/21 05:00 BP 105/69 08/27/21 05:00 Pulse Ox 95 08/27/21 05:00 Intake & Output 08/26/21 08/27/21 08/27/21 18:59 06:59 18:59 Intake Total 1200 850 Output Total 600 Balance 1200 250 Weight 61.235 kg Intake: Intake, IV Titration 1200 850 Amount Ertapenem 1 gm In Sodium 50 Chloride 0.9% 50 ml @ 100 mls/hr IVPB DAILY [facility] Rx #:[id number] Potassium Chloride 20 meq 300 In Water For Injection 1 100ml.bag @ 50 mls/hr IVPB Q2H [facility] Rx#: [id number] Sodium Chloride 0.9% 1, 600 600 000 ml @ 75 mls/hr IV . [id number] [facility] Rx#:[id number] Vancomycin 1,000 mg In 250 250 Sodium Chloride 0.9% 250 ml @ 125 mls/hr IVPB Q8HR [facility] Rx#:[id number] Output: Urine 600 Other: Voiding Method Indwelling Catheter Indwelling Catheter - Exam Gen: awake, alert HEENT: normocephalic, atraumatic, good hearing acuity, moist mucous membranes Resp: good air exchange, breathing comfortably with no accessory muscle use CVS: good distal perfusion x 4, GI: soft, NTTP, ND : no SPT, no CVAT, castillo catheter is present, colostomy MSK: no pitting edema, no clubbing, wound VAC Neuro: non-focal, moving all extremities Psych: cooperative, euthymic mood - Labs CBC & Chem 7: 08/26/21 06:48 08/26/21 06:48 Labs: Microbiology - Last 24 Hours (Table) 08/22/21 07:30 Blood Culture - Preliminary Blood No Growth after 120 hours 08/21/21 15:14 Blood Culture - Preliminary Blood No Growth after 120 hours Assessment and Plan Assessment: Sepsis secondary to large stage IV sacral ulcer Infected sacral ulcer positive for MRSA diphtheroid species status post debridement x 2 with wound vac placement MRSA UTI Bacteroides fragillis Bacteremia -Infectious disease following -Gen. surgery following, -s/p colostomy on 08/23 -Patient underwent debridement of sacral ulcer on 08/12/21 and underwent a second debridement in OR on 08/17/[address] Perez. -Symptomatic care and pain management -Turn every 2 hours and offload pressure from sacral region -Wound care and management of wound VAC -Continuation of IV antibiotics: Ertapenem and vancomycin Hypokalemia, resolved -We will continue to monitor with repeat a.m. labs. Normocytic normochromic anemia, chronic of unclear etiology, stable at this time -Hemoglobin 7.5, we will continue to monitor closely with repeat a.m. labs. Thrombocytosis, suspected reactive with dehydration and acute stressors -Continued close monitoring. -Continue with gentle hydration -DVT prophylaxis with heparin 5000 units subcu every 8 hours. Mild hyponatremia, sodium 132 -Patient placed back on IV fluids on 08/20/21 for gentle hydration. -We will continue to monitor with repeat a.m. labs. Adrenoleukodystrophy -Continue with safe and supportive care providing assistance as needed. CODE STATUS: Full code DVT prophylaxis: Heparin Discussed with: Pt, pt's and RN Anticipated discharge place: SNF
[2021-08-27] MEDS: HYDROmorphone 0.5 MG/0.5 ML SYRINGE IVP PRN ×3 (13:14→22:28)
--- NOTE | 2021-08-27 15:23 | P.PN ---
Subjective Progress Note Date: 08/27/21 CHIEF COMPLAINT: Diverting colostomy HISTORY OF PRESENT ILLNESS: The patient is a 56-year-old male status post diverting ostomy for non-healing Stage IV decubitus ulcer. He is resting comfortably. His daughter is at bedside. No stool through ostomy per discussion with nurse. He has been accepted for transfer at outside rehab facility. ROS: No new chest pain. No shortness of breath. PHYSICAL EXAM: VITAL SIGNS: Reviewed CONSTITUTIONAL: Well developed and in no acute distress. EYES: Conjuctivae without sclera icterus. Extraocular movements grossly intact. HEAD, EARS, NOSE, THROAT: Moist buccal mucosa. Head is atraumatic, normocephalic. No nasal drainage. NECK: No thyroidomegaly. RESPIRATORY: Non-labored respirations and equal bilateral excursions. CARDIOVASCULAR: 2+ radial pulses. ABDOMEN: No peritonitis. Ostomy present MUSCULOSKELETAL: No gross deformity of the lower extremities noted. No clubbing. No cyanosis. SKIN: Good skin turgor. Well perfused. NEUROLOGIC: Cranial nerves I through XII grossly intact. No focal or lateralizing signs. PSYCH: Appropriate affect. Alert and oriented to person, place and time. CLINICAL LABS: Reviewed. Hgb 9.0 to 8.0. WBC normal at 7.0 ASSESSMENT: 1. Diverting colostomy 2. Stage IV ulcer decub PLAN: 1. Await bowel function from ostomy. 2. Ostomy education with patient and family after functioning ostomy. Objective - Vital Signs Vital signs: Vital Signs Temp 98.0 F 08/27/21 12:26 Pulse 89 08/27/21 12:26 Resp 17 08/27/21 12:26 BP 96/55 08/27/21 12:26 Pulse Ox 95 08/27/21 12:26 Intake & Output 08/26/21 08/27/21 08/27/21 18:59 06:59 18:59 Intake Total 1200 850 Output Total 600 Balance 1200 250 Weight 61.235 kg Intake: Intake, IV Titration 1200 850 Amount Ertapenem 1 gm In Sodium 50 Chloride 0.9% 50 ml @ 100 mls/hr IVPB DAILY [facility] Rx #:[id number] Potassium Chloride 20 meq 300 In Water For Injection 1 100ml.bag @ 50 mls/hr IVPB Q2H [facility] Rx#: [id number] Sodium Chloride 0.9% 1, 600 600 000 ml @ 75 mls/hr IV . [id number] [facility] Rx#:[id number] Vancomycin 1,000 mg In 250 250 Sodium Chloride 0.9% 250 ml @ 125 mls/hr IVPB Q8HR [facility] Rx#:[id number] Output: Urine 600 Other: Voiding Method Indwelling Catheter Indwelling Catheter Indwelling Catheter - Labs CBC & Chem 7: 08/26/21 06:48 08/26/21 06:48 Labs: Microbiology - Last 24 Hours (Table) 08/22/21 07:30 Blood Culture - Preliminary Blood No Growth after 120 hours 08/21/21 15:14 Blood Culture - Preliminary Blood No Growth after 120 hours Assessment and Plan (1) Colostomy in place Current Visit: Yes Status: Acute Code(s): Z93.3 - COLOSTOMY STATUS SNOMED Code(s): 305868216 (2) Pressure ulcer of sacral region, stage 4 Current Visit: Yes Status: Acute Code(s): L89.154 - PRESSURE ULCER OF SACRAL REGION, STAGE 4 SNOMED Code(s): 548062464
[2021-08-27] MEDS: VANCOMYCIN 750 MG in SODIUM CHLORIDE 0.9% 250 ML IVPB SCH (17:00)
[2021-08-28] MEDS: VANCOMYCIN 750 MG in SODIUM CHLORIDE 0.9% 250 ML IVPB SCH ×4 (00:30→23:52)
[2021-08-28] MEDS: METOCLOPRAMIDE 5 MG/ML 2 ML VIAL IVP SCH ×5 (00:31→23:52)
[2021-08-28] MEDS: HEPARIN SODIUM,PORCINE/PF 5,000 UNIT/0.5 ML SYRINGE SQ SCH ×4 (00:31→23:52)
[2021-08-28] MEDS: HYDROmorphone 0.5 MG/0.5 ML SYRINGE IVP PRN ×4 (03:17→19:43)
--- NOTE | 2021-08-28 03:38 | PN ---
PROGRESS NOTE DATE OF SERVICE: 08/27/2021 REASON FOR FOLLOWUP: Infected sacral pressure ulcer with bacteremia. INTERVAL HISTORY: The patient is afebrile. The patient is currently breathing comfortably. The patient did not have any output in his colostomy and that is holding his discharge. The patient denies having any chest pain, shortness of breath or cough. No abdominal pain or diarrhea. PHYSICAL EXAMINATION: Blood pressure is 121/71 with a pulse of 90, temperature 98.7. He is 98% on room air. General description is a middle-aged male lying in bed in no distress. Respiratory system: Unlabored breathing and is clear to auscultation anteriorly. Heart S1, S2. Regular rate and rhythm. Abdomen soft, no tenderness. Sacral wound is currently covered with a wound V. A.C. DIAGNOSTIC IMPRESSION AND PLAN: Patient with infected sacral pressure ulcer stage IV in this patient who is status post extensive debridement and diverting colostomy. The patient is currently covered with Invanz and vancomycin. Will continue to finish a six week course of therapy. Local wound care per wound care team. at the bedside. Questions were answered. MMODL / IJN: [id number] /
[2021-08-28] MEDS: SODIUM CHLORIDE 0.9% 1,000 ML IV SCH ×2 (04:43→22:20)
[2021-08-28] MEDS: IPRATROPIUM-ALBUTEROL 3 ML NEB INHALATION SCH ×4 (07:53→19:53)
[2021-08-28] MEDS: MAGNESIUM SULFATE-D5W PMX 1 GM in DEXTROSE/WATER 1 100ML.BAG IVPB SCH ×2 (08:49→13:51)
[2021-08-28] MEDS: POTASSIUM CHLORIDE ER 20 MEQ TAB.ER PO SCH ×4 (08:54→23:52)
[2021-08-28] MEDS: NICOTINE 21MG/24HR PATCH TRANSDERM SCH (10:53)
[2021-08-28] MEDS: POTASSIUM CHLORIDE 20 MEQ in WATER FOR INJECTION 1 100ML.BAG IVPB SCH ×2 (10:54→14:10)
--- NOTE | 2021-08-28 11:41 | P.PN ---
Subjective Progress Note Date: 08/28/21 Has eaten small amounts since yesterday, but still has no ostomy output as of yet. Objective - Vital Signs Vital signs: Vital Signs Temp 97.8 F 08/28/21 04:40 Pulse 68 08/28/21 08:03 Resp 18 08/28/21 08:00 BP 116/72 08/28/21 04:40 Pulse Ox 96 08/28/21 04:40 Intake & Output 08/27/21 08/28/21 08/28/21 18:59 06:59 18:59 Intake Total 100 Output Total 500 1800 Balance -500 -1700 Weight 61.235 kg Intake: Oral 100 Output: Urine 500 1800 Uretheral (Castillo) 900 Other: Voiding Method Indwelling Catheter Indwelling Catheter Indwelling Catheter - Exam Gen: awake, alert HEENT: normocephalic, atraumatic, good hearing acuity, moist mucous membranes Resp: good air exchange, breathing comfortably with no accessory muscle use CVS: good distal perfusion x 4, GI: soft, NTTP, ND : no SPT, no CVAT, castillo catheter is present, colostomy MSK: no pitting edema, no clubbing, wound VAC Neuro: non-focal, moving all extremities Psych: cooperative, euthymic mood - Labs CBC & Chem 7: 08/26/21 06:48 08/28/21 06:25 Labs: Abnormal Lab Results - Last 24 Hours (Table) 08/28/21 Range/Units 06:25 Potassium 2.8 L (3.5-5.1) mmol/L Microbiology - Last 24 Hours (Table) 08/22/21 07:30 Blood Culture - Final Blood No Growth after 144 hours 08/21/21 15:14 Blood Culture - Final Blood No Growth after 144 hours Assessment and Plan Assessment: Sepsis secondary to large stage IV sacral ulcer Infected sacral ulcer positive for MRSA diphtheroid species status post debridement x 2 with wound vac placement MRSA UTI Bacteroides fragillis Bacteremia -Infectious disease following -Gen. surgery following, -s/p colostomy on 08/23 -Patient underwent debridement of sacral ulcer on 08/12/21 and underwent a second debridement in OR on 08/17/[address] Perez. -Symptomatic care and pain management -Turn every 2 hours and offload pressure from sacral region -Wound care and management of wound VAC -Continuation of IV antibiotics: Ertapenem and vancomycin Hypokalemia, resolved -We will continue to monitor with repeat a.m. labs. Normocytic normochromic anemia, chronic of unclear etiology, stable at this time -Hemoglobin 7.5, we will continue to monitor closely with repeat a.m. labs. Thrombocytosis, suspected reactive with dehydration and acute stressors -Continued close monitoring. -Continue with gentle hydration -DVT prophylaxis with heparin 5000 units subcu every 8 hours. Mild hyponatremia, sodium 132 -Patient placed back on IV fluids on 08/20/21 for gentle hydration. -We will continue to monitor with repeat a.m. labs. Adrenoleukodystrophy -Continue with safe and supportive care providing assistance as needed. CODE STATUS: Full code DVT prophylaxis: Heparin Discussed with: Pt, pt's and RN Anticipated discharge place: [facility]
[2021-08-28] MEDS: ERTAPENEM 1 GM in SODIUM CHLORIDE 0.9% 50 ML IVPB SCH (12:10)
--- NOTE | 2021-08-28 15:22 | P.PN ---
Subjective Progress Note Date: 08/28/21 CHIEF COMPLAINT: Diverting colostomy HISTORY OF PRESENT ILLNESS: The patient is a 56-year-old male status post diverting ostomy for non-healing Stage IV decubitus ulcer. No stool output from his ostomy. ROS: No new chest pain. No shortness of breath. PHYSICAL EXAM: VITAL SIGNS: Reviewed CONSTITUTIONAL: Well developed and in no acute distress. EYES: Conjuctivae without sclera icterus. Extraocular movements grossly intact. HEAD, EARS, NOSE, THROAT: Moist buccal mucosa. Head is atraumatic, normocephalic. No nasal drainage. RESPIRATORY: Non-labored respirations and equal bilateral excursions. CARDIOVASCULAR: 2+ radial pulses. ABDOMEN: No peritonitis. Ostomy present, no stool MUSCULOSKELETAL: No gross deformity of the lower extremities noted. No clubbing. No cyanosis. SKIN: Good skin turgor. Well perfused. NEUROLOGIC: No focal or lateralizing signs. PSYCH: Flat affect CLINICAL LABS: Reviewed. Potassium low 2.8 ASSESSMENT: 1. Diverting colostomy 2. Stage IV ulcer decub PLAN: 1. Await bowel function Objective - Vital Signs Vital signs: Vital Signs Temp 97.8 F 08/28/21 04:40 Pulse 85 08/28/21 13:57 Resp 18 08/28/21 13:57 BP 120/65 08/28/21 13:57 Pulse Ox 94 L 08/28/21 13:57 Intake & Output 08/27/21 08/28/21 08/28/21 18:59 06:59 18:59 Intake Total 100 Output Total 500 1800 Balance -500 -1700 Weight 61.235 kg Intake: Oral 100 Output: Urine 500 1800 Uretheral ([place]) 900 Other: Voiding Method Indwelling Catheter Indwelling Catheter Indwelling Catheter - Labs CBC & Chem 7: 08/26/21 06:48 08/28/21 06:25 Labs: Abnormal Lab Results - Last 24 Hours (Table) 08/28/21 Range/Units 06:25 Potassium 2.8 L (3.5-5.1) mmol/L Microbiology - Last 24 Hours (Table) 08/22/21 07:30 Blood Culture - Final Blood No Growth after 144 hours 08/21/21 15:14 Blood Culture - Final Blood No Growth after 144 hours Assessment and Plan (1) Colostomy in place Current Visit: Yes Status: Acute Code(s): Z93.3 - COLOSTOMY STATUS SNOMED Code(s): 154944501 (2) Pressure ulcer of sacral region, stage 4 Current Visit: Yes Status: Acute Code(s): L89.154 - PRESSURE ULCER OF SACRAL REGION, STAGE 4 SNOMED Code(s): 697926578
[2021-08-28] MEDS ORDERED: Potassium Replacement Protocol 1 EACH MISC MISCELLANE PRN (22:04)
--- NOTE | 2021-08-29 02:01 | PN ---
PROGRESS NOTE DATE OF SERVICE: 08/28/2021 REASON FOR FOLLOWUP: Infected sacral pressure ulcer with bacteremia. INTERVAL HISTORY: The patient is afebrile, has been breathing comfortably. Patient ( ) pain medication as ( ) this morning has been sleepy, unable to provide any history. Most of the case discussed with the at the bedside and did mention overall improvement in the wound with dressing changes. PHYSICAL EXAMINATION: Blood pressure 126/75, pulse 76, temperature 98.5. He is 97%. General description is a middle-aged male lying in bed in no distress. Respiratory system: Unlabored breathing. Sacral wound at the time of dressing change as mentioned overall improvement with more granulation tissue. No slough tissue. LABS: Hemoglobin 8.0, white count 7.0, creatinine 0.40. Vanco trough slightly high. DIAGNOSTIC IMPRESSION AND PLAN: Patient with infected sacral pressure ulcer with bacteremia. Patient is covered with vancomycin, dose needs to be cut back to keep the trough around 15 and continue with Invanz. Local care with wound VAC. at the bedside, multiple questions were answered. MMODL / IJN: [id number] /
[2021-08-29] MEDS ORDERED: Potassium Replacement Protocol 1 EACH MISC MISCELLANE PRN (04:41)
[2021-08-29] MEDS: METOCLOPRAMIDE 5 MG/ML 2 ML VIAL IVP SCH ×4 (05:35→23:08)
[2021-08-29] MEDS: SODIUM CHLORIDE 0.9% 1,000 ML IV SCH (05:36)
[2021-08-29] MEDS: POTASSIUM CHLORIDE 20 MEQ in WATER FOR INJECTION 1 100ML.BAG IVPB SCH ×2 (05:36→09:06)
[2021-08-29 05:50] LABS: Basophils % (A) 0 %; Eosinophils # (A) 0.3 k/uL (0-0.7); Eosinophils % (A) 4 %; HCT 23.5 % (39.0-53.0); HGB 7.9 gm/dL (13.0-17.5); Lymphocytes % (A) 15 %; MCH 31.5 pg (25.0-35.0); MCHC 33.7 g/dL (31.0-37.0); MCV 93.2 fL (80.0-100.0); Mean Platelet Volume 7.4; Monocytes # (A) 0.5 k/uL (0-1.0); Monocytes % (A) 7 %; Neutrophils # (A) 4.8 k/uL (1.3-7.7); Neutrophils % (A) 72 %; Platelet Count 362 k/uL (150-450); RBC 2.52 m/uL (4.30-5.90); RDW 14.3 % (11.5-15.5); WBC 6.7 k/uL (3.8-10.6)
[2021-08-29] MEDS: IPRATROPIUM-ALBUTEROL 3 ML NEB INHALATION SCH ×4 (07:56→20:40)
[2021-08-29] MEDS: POTASSIUM CHLORIDE ER 20 MEQ TAB.ER PO SCH ×2 (09:59→19:47)
[2021-08-29] MEDS: HEPARIN SODIUM,PORCINE/PF 5,000 UNIT/0.5 ML SYRINGE SQ SCH ×3 (09:59→23:09)
[2021-08-29] MEDS: NICOTINE 21MG/24HR PATCH TRANSDERM SCH (09:59)
[2021-08-29 10:42] LABS: ALT 9 U/L (10-49); AST 18 U/L (14-35); African American GFR (CKD) 178.4 (60.0-200.0); Albumin 1.8 g/dL (3.8-4.9); Albumin/Globulin Ratio 0.69 (1.60-3.17); Alkaline Phosphatase 76 U/L (41-126); BUN/Creat Ratio 9.75 Ratio (12.00-20.00); Bilirubin, Conjugated <0.20 mg/dL (0.20-0.40); Blood Urea Nitrogen 2.8 mg/dL (9.0-27.0); Calcium 7.3 mg/dL (8.7-10.3); Carbon Dioxide 19.3 mmol/L (20.0-27.5); Chloride 108 mmol/L (96-109); Globulin 2.6 g/dL (1.6-3.3); Glucose 100 mg/dL (70-110); Non-African American GFR(CKD) 153.9 (60.0-200.0); Potassium 3.8 mmol/L (3.5-5.5); Sodium 136 mmol/L (135-145); Total Protein 4.3 g/dL (6.2-8.2)
[2021-08-29] MEDS: ERTAPENEM 1 GM in SODIUM CHLORIDE 0.9% 50 ML IVPB SCH (12:23)
--- NOTE | 2021-08-29 12:57 | P.PN ---
Subjective Progress Note Date: 08/29/21 CHIEF COMPLAINT: Diverting colostomy HISTORY OF PRESENT ILLNESS: The patient is a 56-year-old male status post diverting ostomy for non-healing Stage IV decubitus ulcer. He now has stool in his ostomy as he is being cleaned by the nurses. ROS: No new chest pain. No shortness of breath. PHYSICAL EXAM: VITAL SIGNS: Reviewed CONSTITUTIONAL: Well developed and in no acute distress. EYES: Conjuctivae without sclera icterus. Extraocular movements grossly intact. HEAD, EARS, NOSE, THROAT: Moist buccal mucosa. Head is atraumatic, normocephalic. No nasal drainage. RESPIRATORY: Non-labored respirations and equal bilateral excursions. CARDIOVASCULAR: 2+ radial pulses. ABDOMEN: No peritonitis. Ostomy present with soft brown stool and flatus. MUSCULOSKELETAL: No gross deformity of the lower extremities noted. No clubbing. No cyanosis. SKIN: Good skin turgor. Well perfused. NEUROLOGIC: No focal or lateralizing signs. PSYCH: Flat affect CLINICAL LABS: Reviewed. WBC normal 6.7 and Hgb 7.9. ASSESSMENT: 1. Diverting colostomy 2. Stage IV ulcer decub 3. Anemia PLAN: 1. Stable for discharge from a surgical standpoint. Objective - Vital Signs Vital signs: Vital Signs Temp 99 F 08/29/21 05:15 Pulse 66 08/29/21 11:52 Resp 20 08/29/21 05:15 BP 122/77 08/29/21 05:15 Pulse Ox 95 08/29/21 05:15 Intake & Output 08/28/21 08/29/21 08/29/21 18:59 06:59 18:59 Intake Total 120 100 Output Total 1200 2000 1000 Balance -1080 -1900 -1000 Intake: Oral 120 100 Output: Urine 1200 2000 1000 Uretheral ([place]) 1200 1000 Other: Voiding Method Indwelling Catheter Indwelling Catheter # Voids 1 1 - Labs CBC & Chem 7: 08/29/21 05:24 08/29/21 05:24 Labs: Abnormal Lab Results - Last 24 Hours (Table) 08/28/21 08/29/21 08/29/21 Range/Units 21:09 00:59 05:24 RBC 2.52 L (4.30-5.90) m/uL Hgb 7.9 L (13.0-17.5) gm/dL Hct 23.5 L (39.0-53.0) % Potassium 3.2 L 3.4 L (3.5-5.1) mmol/L Carbon Dioxide (20.0-27.5) mmol/L Anion Gap (10.00-18.00) mmol/L BUN (9.0-27.0) mg/dL Creatinine (0.6-1.5) mg/dL BUN/Creatinine Ratio (12.00-20.00) Ratio Calcium (8.7-10.3) mg/dL Total Bilirubin (0.30-1.20) mg/dL Conjugated Bilirubin (0.20-0.40) mg/dL ALT (10-49) U/L Total Protein (6.2-8.2) g/dL Albumin (3.8-4.9) g/dL Albumin/Globulin Ratio (1.60-3.17) g/dL 08/29/21 Range/Units 05:24 RBC (4.30-5.90) m/uL Hgb (13.0-17.5) gm/dL Hct (39.0-53.0) % Potassium (3.5-5.1) mmol/L Carbon Dioxide 19.3 L (20.0-27.5) mmol/L Anion Gap 8.60 L (10.00-18.00) mmol/L BUN 2.8 L (9.0-27.0) mg/dL Creatinine 0.3 L (0.6-1.5) mg/dL BUN/Creatinine Ratio 9.75 L (12.00-20.00) Ratio Calcium 7.3 L (8.7-10.3) mg/dL Total Bilirubin 0.20 L (0.30-1.20) mg/dL Conjugated Bilirubin <0.20 L (0.20-0.40) mg/dL ALT 9 L (10-49) U/L Total Protein 4.3 L (6.2-8.2) g/dL Albumin 1.8 L (3.8-4.9) g/dL Albumin/Globulin Ratio 0.69 L (1.60-3.17) g/dL Microbiology - Last 24 Hours (Table) 08/22/21 07:30 Blood Culture - Final Blood No Growth after 144 hours Assessment and Plan (1) Colostomy in place Current Visit: Yes Status: Acute Code(s): Z93.3 - COLOSTOMY STATUS SNOMED Code(s): 165868035 (2) Pressure ulcer of sacral region, stage 4 Current Visit: Yes Status: Acute Code(s): L89.154 - PRESSURE ULCER OF SACRAL REGION, STAGE 4 SNOMED Code(s): 364388981
[2021-08-29] MEDS: VANCOMYCIN 750 MG in SODIUM CHLORIDE 0.9% 250 ML IVPB SCH ×3 (13:49→23:09)
--- NOTE | 2021-08-29 13:49 | P.PN ---
Subjective Progress Note Date: 08/29/21 Pt is now making stool through his ostomy. Medically cleared for discharge, but pending accepting facility. Objective - Vital Signs Vital signs: Vital Signs Temp 98.5 F 08/29/21 13:00 Pulse 86 08/29/21 13:00 Resp 17 08/29/21 13:00 BP 97/60 08/29/21 13:00 Pulse Ox 96 08/29/21 13:00 Intake & Output 08/28/21 08/29/21 08/29/21 18:59 06:59 18:59 Intake Total 120 100 Output Total 1200 2000 1000 Balance -1080 -1900 -1000 Intake: Oral 120 100 Output: Urine 1200 2000 1000 Uretheral ([place]) 1200 1000 Other: Voiding Method Indwelling Catheter Indwelling Catheter Indwelling Catheter # Voids 1 1 - Exam Gen: awake, alert HEENT: normocephalic, atraumatic, good hearing acuity, moist mucous membranes Resp: good air exchange, breathing comfortably with no accessory muscle use CVS: good distal perfusion x 4, GI: soft, NTTP, ND : no SPT, no CVAT, castillo catheter is present, colostomy MSK: no pitting edema, no clubbing, wound VAC Neuro: non-focal, moving all extremities Psych: cooperative, euthymic mood - Labs CBC & Chem 7: 08/29/21 05:24 08/29/21 05:24 Labs: Abnormal Lab Results - Last 24 Hours (Table) 08/28/21 08/29/21 08/29/21 Range/Units 21:09 00:59 05:24 RBC 2.52 L (4.30-5.90) m/uL Hgb 7.9 L (13.0-17.5) gm/dL Hct 23.5 L (39.0-53.0) % Potassium 3.2 L 3.4 L (3.5-5.1) mmol/L Carbon Dioxide (20.0-27.5) mmol/L Anion Gap (10.00-18.00) mmol/L BUN (9.0-27.0) mg/dL Creatinine (0.6-1.5) mg/dL BUN/Creatinine Ratio (12.00-20.00) Ratio Calcium (8.7-10.3) mg/dL Total Bilirubin (0.30-1.20) mg/dL Conjugated Bilirubin (0.20-0.40) mg/dL ALT (10-49) U/L Total Protein (6.2-8.2) g/dL Albumin (3.8-4.9) g/dL Albumin/Globulin Ratio (1.60-3.17) g/dL 08/29/21 Range/Units 05:24 RBC (4.30-5.90) m/uL Hgb (13.0-17.5) gm/dL Hct (39.0-53.0) % Potassium (3.5-5.1) mmol/L Carbon Dioxide 19.3 L (20.0-27.5) mmol/L Anion Gap 8.60 L (10.00-18.00) mmol/L BUN 2.8 L (9.0-27.0) mg/dL Creatinine 0.3 L (0.6-1.5) mg/dL BUN/Creatinine Ratio 9.75 L (12.00-20.00) Ratio Calcium 7.3 L (8.7-10.3) mg/dL Total Bilirubin 0.20 L (0.30-1.20) mg/dL Conjugated Bilirubin <0.20 L (0.20-0.40) mg/dL ALT 9 L (10-49) U/L Total Protein 4.3 L (6.2-8.2) g/dL Albumin 1.8 L (3.8-4.9) g/dL Albumin/Globulin Ratio 0.69 L (1.60-3.17) g/dL Microbiology - Last 24 Hours (Table) 08/22/21 07:30 Blood Culture - Final Blood No Growth after 144 hours Assessment and Plan Assessment: Sepsis secondary to large stage IV sacral ulcer Infected sacral ulcer positive for MRSA diphtheroid species status post debridement x 2 with wound vac placement MRSA UTI Bacteroides fragillis Bacteremia -Infectious disease following -Gen. surgery following, -s/p colostomy on 08/23 -Patient underwent debridement of sacral ulcer on 08/12/21 and underwent a second debridement in OR on 08/17/[address] Perez. -Symptomatic care and pain management -Turn every 2 hours and offload pressure from sacral region -Wound care and management of wound VAC -Continuation of IV antibiotics: Ertapenem and vancomycin Hypokalemia, resolved -We will continue to monitor with repeat a.m. labs. Normocytic normochromic anemia, chronic of unclear etiology, stable at this time -Hemoglobin 7.5, we will continue to monitor closely with repeat a.m. labs. Thrombocytosis, suspected reactive with dehydration and acute stressors -Continued close monitoring. -Continue with gentle hydration -DVT prophylaxis with heparin 5000 units subcu every 8 hours. Mild hyponatremia, sodium 132 -Patient placed back on IV fluids on 08/20/21 for gentle hydration. -We will continue to monitor with repeat a.m. labs. Adrenoleukodystrophy -Continue with safe and supportive care providing assistance as needed. CODE STATUS: Full code DVT prophylaxis: Heparin Discussed with: Pt, pt's and RN Anticipated discharge place: SNF
[2021-08-29] MEDS ORDERED: VANCOMYCIN TROUGH DUE 1 EACH MISC MISCELLANE ONE (15:00)
[2021-08-29] MEDS: HYDROmorphone 0.5 MG/0.5 ML SYRINGE IVP PRN ×3 (15:49→23:48)
--- NOTE | 2021-08-30 00:04 | PN ---
PROGRESS NOTE DATE OF SERVICE: 08/29/2021 REASON FOR FOLLOWUP: Infected sacral pressure ulcer with bacteremia. INTERVAL HISTORY: The patient is afebrile. The patient is currently breathing comfortably. No chest pain, shortness of breath or cough. No abdominal pain or worsening pain to the sacral wound area. He wants to go home. PHYSICAL EXAMINATION: Blood pressure 121/75 with a pulse of 80, temperature 98.4. He is 97% on room air. General description is a middle-aged male lying in bed in no distress. Respiratory system: Unlabored breathing, clear to auscultation anteriorly. Heart S1, S2. Regular rate and rhythm. Abdomen soft, no tenderness. Patient did have output in his colostomy bag. LABS: Hemoglobin is 7.9, white count 6.7 creatinine 0.3. DIAGNOSTIC IMPRESSION AND PLAN: Patient with an infected sacral pressure ulcer in this patient who is status post debridement of the wound followed by diverting colostomy; did have output. Culture reports with multiple pathogens. Patient is covered with vancomycin and Invanz; to be continued for another 5 weeks at least while monitoring his clinical course closely. at the bedside. Questions and concerns were answered. MMODL / IJN: [id number] /
[2021-08-30] MEDS: SODIUM CHLORIDE 0.9% 1,000 ML IV SCH ×3 (03:43→12:17)
[2021-08-30] MEDS: METOCLOPRAMIDE 5 MG/ML 2 ML VIAL IVP SCH ×4 (04:48→23:22)
[2021-08-30] MEDS: IPRATROPIUM-ALBUTEROL 3 ML NEB INHALATION SCH ×4 (07:35→19:26)
[2021-08-30] MEDS: VANCOMYCIN 750 MG in SODIUM CHLORIDE 0.9% 250 ML IVPB SCH ×3 (08:35→23:21)
[2021-08-30] MEDS: HEPARIN SODIUM,PORCINE/PF 5,000 UNIT/0.5 ML SYRINGE SQ SCH ×3 (08:36→23:22)
[2021-08-30] MEDS: NICOTINE 21MG/24HR PATCH TRANSDERM SCH (08:36)
[2021-08-30] MEDS: POTASSIUM CHLORIDE ER 20 MEQ TAB.ER PO SCH ×2 (08:36→19:53)
[2021-08-30] MEDS: ERTAPENEM 1 GM in SODIUM CHLORIDE 0.9% 50 ML IVPB SCH (11:02)
--- NOTE | 2021-08-30 11:06 | P.PN ---
Subjective Progress Note Date: 08/30/21 CHIEF COMPLAINT: Sacral decubitus ulcer HISTORY OF PRESENT ILLNESS: Patient is status post diverting colostomy, repair of incisional hernia, partial omentectomy. Patient also required 2 debridements on his sacral ulcer during this admission. Patient lying in bed comfortably. No new complaints overnight. Ostomy functioning. Patient is awaiting placement in ECF. Afebrile. WBC 6.7 yesterday. No new labs for today. PHYSICAL EXAM: VITAL SIGNS: Reviewed. GENERAL: Well-developed in no acute distress. HEENT: No sclera icterus. Extraocular movements grossly intact. Moist buccal mucosa. Head is atraumatic, normocephalic. ABDOMEN: Soft. Nondistended. Stool present in ostomy bag ASSESSMENT: 1. Stage IV infected sacral decubitus ulcer status post debridement 2 2. Status post diverting colostomy due to stage IV sacral decubitus ulcer 2. Hypokalemia improved 3. Sepsis due to large sacral decubitus ulcer 4. History of adrenaleukodystrophy PLAN: -Patient can be discharge from surgical standpoint -Continue local wound care -Continue wound VAC per wound care service -Continue antibiotics per ID service -Continue regular diet Physician Painter Mirror note has been reviewed by physician. Signing provider agrees with the documented findings, assessment, and plan of care. Objective - Vital Signs Vital signs: Vital Signs Temp 98.3 F 08/30/21 04:29 Pulse 60 08/30/21 07:46 Resp 18 08/30/21 04:29 BP 121/76 08/30/21 04:29 Pulse Ox 100 08/30/21 04:29 Intake & Output 08/29/21 08/30/21 08/30/21 18:59 06:59 18:59 Intake Total 240 300 Output Total 3500 1999 Balance -3260 -1700 Intake: Oral 240 300 Output: Urine 3500 1999 Uretheral ([place]) 1800 1000 Other: Voiding Method Indwelling Catheter Indwelling Catheter # Voids 1 2 - Labs CBC & Chem 7: 08/29/21 05:24 08/29/21 05:24
[2021-08-30] MEDS: HYDROmorphone 0.5 MG/0.5 ML SYRINGE IVP PRN ×2 (16:09→19:50)
--- NOTE | 2021-08-30 18:52 | P.PN ---
<Mo King - Last Filed: 08/30/21 18:43> Subjective Progress Note Date: 08/30/21 Hospital course: Patient is a 55-year-old male with a PMH of adrenoleukodystrophy, essentially bedbound who was brought into the emergency room by his for buttock ulcer, worsening mental status, and fever in 08/20/21. at this time patient was found to be septic with heart rate of 110, temperature 100.4F, and WBC count of 34.7. in addition patient was found to be significantly hypokalemic with potassium of 2.6. Urinalysis contaminated but concerning for positive for infection with fin dings of protein, ketones, blood, leukocytes, 16 RBCs, and 79 WBCs. patient was admitted under our services with consultation togeneral surgery and infectious disease. patient underwent debridement of sacral ulcer on 08/12/21 and underwent a second debridement in OR with Dr. Perez on 08/17/21. During second surgical debridement, surgeon recommending that patient may need diverging colostomy secondary to sacral decubitus ulcer with exposed bone. Wound vac was placed to sacral region. Blood culture is positive for Bacterpodes fragillis, urinalysis positive for MRSA, and tissue Gram stain from sacral ulcer positive for MRSA and diphtheroid species. patient remains on IV antibiotics vancomycin and Unasyn. Patient underwent diverting colostomy with repair of incisional hernia and partial omentectomy on 08/23/[address] Perez. Ostomy functioning with good output. Wound VAC remains in place. Patient has been accepted for admission to [facility] pending delivery of their wound VAC prior to full acception of patient. Patient has been cleared from surgical standpoint and is medically stable for discharge to SNF for continued care. Patient to receive continued IV antibiotics with Invanz and vancomycin managed by infectious disease. Physical exam: Patient seen and fully evaluated at the bedside this morning. Updated patient and on pending discharged to [facility]. Ostomy is functioning well. Patient currently denies having any complaints or concerns at this time including chest pain, palpitations, shortness of breath, nausea, or vomiting. He reports pain is being managed with current pain management regimen. Patient to continue IV antibiotics with Vantin and vancomycin for treatment of MRSA diphtheroid species infected wound, MRSA UTI and Bacteroides fragillis Bacteremia. Vital signs reviewed and stable. General: Nontoxic, no distress and appears chronically ill Derm: Skin warm and dry, normal coloration for ethnicity. Dressing in place to sacral/coccyx region with Wound Vac. Head: Atraumatic, normocephalic and symmetric. very hard of hearing. Eyes: no lid lag, and anicteric sclera Mouth: no lip lesions, mucus membranes moist Cardiovascular: regular rate and rhythm with normal S1S2, no murmur, positive posterior tibial pulses bilaterally, and cap refill < 2 seconds. Lungs: Respirations even, regular, and unlabored on room air. Lungs CTA bilaterally, no rhonchi, no rales, no wheezing, and no accessory muscle usage. Abdominal: soft, nontender to palpation, no guarding, no appreciable organo megaly. Ostomy in place with stool in ostomy bag. Ext: Bed bound, limited movement in BLE, sensation and movement intact to BUE. diffuse muscle atrophy, no contractures. Neuro: Speech clear, face symmetrical Psych: Alert and oriented to person, place, and situation. Appropriate and pleasant affect. Assessment and Plan of Care: Sepsis secondary to large stage IV sacral ulcer Infected sacral ulcer positive for MRSA diphtheroid species status post debridement x 2 with wound vac placement MRSA UTI Bacteroides fragillis Bacteremia -CT abd/pelvis pending concern for abdominal source re: bacteremia -Blood culture is positive for Bacterpodes fragillis. -Urinalysis positive for MRSA -Tissue Gram stain from sacral ulcer positive for MRSA and diphtheroid species -Infectious disease following -Gen. surgery following, clearing patient from surgical standpoint for discharge to SNF -Patient underwent debridement of sacral ulcer on 08/12/21 and underwent a second debridement in OR on 08/17/[address] Perez. - Patient underwent diverting colostomy with repair of incisional hernia and partial omentectomy on 08/23/[address] Perez. -Symptomatic care and pain management -Turn every 2 hours and offload pressure from sacral region -Wound care and management of wound VAC -Continuation of IV antibiotics: Invanz and vancomycin managed by infectious disease Hypokalemia, resolved -We will continue to monitor with repeat a.m. labs. Normocytic normochromic anemia, chronic of unclear etiology, stable at this time -Hemoglobin 7.5, we will continue to monitor closely with repeat a.m. labs. Thrombocytosis, suspected reactive with dehydration and acute stressors -Continued close monitoring. -Continue with gentle hydration -DVT prophylaxis with heparin 5000 units subcu every 8 hours. Mild hyponatremia, resolved -We will continue to monitor with repeat a.m. labs. Adrenoleukodystrophy -Continue with safe and supportive care providing assistance as needed. CODE STATUS: Full code DVT prophylaxis: Heparin Discussed with: Pt, pt's and RN Anticipated discharge date: Likely tomorrow morning pending delivery of wound VAC to SNF Anticipated discharge place: [facility] A total of 45 minutes was spent on the care of this complex patient more than 50% of the time was spent in counseling and care coordination. Objective - Vital Signs Vital signs: Vital Signs Temp 98.3 F 08/30/21 04:29 Pulse 60 08/30/21 07:46 Resp 18 08/30/21 04:29 BP 121/76 08/30/21 04:29 Pulse Ox 100 08/30/21 04:29 Intake & Output 08/29/21 08/30/21 08/30/21 18:59 06:59 18:59 Intake Total 240 300 Output Total 3500 2000 Balance -3260 -1700 Intake: Oral 240 300 Output: Urine 3500 2000 Uretheral ([place]) 1800 1000 Other: Voiding Method Indwelling Catheter Indwelling Catheter # Voids 1 2 - Labs CBC & Chem 7: 08/29/21 05:24 08/29/21 05:24 <Jonathon Tolentino - Last Filed: 08/30/21 22:14> Subjective I agree with the documented assessment and plan by our TAMIE, Mo King, as detailed in the note with the following changes: none. Objective - Vital Signs Vital signs: Vital Signs Temp 98.3 F 08/30/21 19:50 Pulse 72 08/30/21 19:50 Resp 16 08/30/21 19:50 BP 117/71 08/30/21 19:50 Pulse Ox 96 08/30/21 19:50 Intake & Output 08/30/21 08/30/21 08/31/21 06:59 18:59 06:59 Intake Total 300 Output Total 2000 1600 Balance -1700 -1600 Intake: Oral 300 Output: Urine 2000 1600 Uretheral ([place]) 1000 Other: Voiding Method Indwelling Catheter Indwelling Catheter # Voids 2 - Labs CBC & Chem 7: 08/29/21 05:24 08/29/21 05:24
--- NOTE | 2021-08-31 06:08 | PN ---
PROGRESS NOTE DATE OF SERVICE: 08/30/2021 REASON FOR FOLLOWUP: Infected sacral pressure ulcer with secondary bacteremia. INTERVAL HISTORY: The patient is afebrile. The patient is currently breathing comfortably on room air. He is hemodynamically stable. No changes noted by the nursing staff. PHYSICAL EXAMINATION: Blood pressure 117/71, pulse of 72, temperature 98.3. He is 93% on room air. General description is a middle-aged male lying in bed in no distress. Respiratory system: Unlabored breathing, clear to auscultation anteriorly. The sacral wound is currently covered with a wound VAC. LABS: Hemoglobin is 7, white count 6.7, creatinine 0.39. DIAGNOSTIC IMPRESSION AND PLAN: Patient admitted with infected sacral pressure ulcer secondary bacteremia status post debridement. Patient has been covered with Invanz and vancomycin. ( ) antibiotics. Currently waiting for placement. Continue supportive care. MMODL / MARYN: [id number] /
[2021-08-31] MEDS ORDERED: VANCOMYCIN TROUGH DUE 1 EACH MISC MISCELLANE ONE (07:00)
[2021-08-31] MEDS: METOCLOPRAMIDE 5 MG/ML 2 ML VIAL IVP SCH ×2 (07:27→14:21)
[2021-08-31] MEDS: IPRATROPIUM-ALBUTEROL 3 ML NEB INHALATION SCH ×3 (07:32→15:39)
[2021-08-31 07:54] LABS: African American GFR (CKD) >90 (>60 ml/min/1.73 sqM); Anion Gap 3 mmol/L; Blood Urea Nitrogen 2 mg/dL (9-20); Calcium 7.9 mg/dL (8.4-10.2); Carbon Dioxide 23 mmol/L (22-30); Chloride 105 mmol/L (98-107); Glucose 98 mg/dL (74-99); Non-African American GFR(CKD) >90 (>60 ml/min/1.73 sqM); Potassium 4.4 mmol/L (3.5-5.1); Sodium 131 mmol/L (137-145)
[2021-08-31] MEDS: ERTAPENEM 1 GM in SODIUM CHLORIDE 0.9% 50 ML IVPB SCH (08:06)
[2021-08-31] MEDS: POTASSIUM CHLORIDE ER 20 MEQ TAB.ER PO SCH (09:28)
[2021-08-31] MEDS: HEPARIN SODIUM,PORCINE/PF 5,000 UNIT/0.5 ML SYRINGE SQ SCH (09:28)
[2021-08-31] MEDS: NICOTINE 21MG/24HR PATCH TRANSDERM SCH (09:29)
[2021-08-31] MEDS: HYDROmorphone 0.5 MG/0.5 ML SYRINGE IVP PRN ×2 (09:35→15:42)
[2021-08-31] MEDS: VANCOMYCIN 750 MG in SODIUM CHLORIDE 0.9% 250 ML IVPB SCH (10:12)
[2021-08-31 11:09] VITALS: BP 113/68; RESP 20; TEMP 98.3
--- NOTE | 2021-08-31 11:26 | P.PN ---
Subjective Progress Note Date: 08/31/21 CHIEF COMPLAINT: Sacral decubitus ulcer HISTORY OF PRESENT ILLNESS: Patient is status post diverting colostomy, repair of incisional hernia, partial omentectomy. Patient also required 2 debridements on his sacral ulcer during this admission. Patient lying in bed comfortably. No new complaints overnight. Ostomy functioning. Patient is scheduled be discharged to ECF today. Patient is awaiting placement in ECF. Afebrile. PHYSICAL EXAM: VITAL SIGNS: Reviewed. GENERAL: Well-developed in no acute distress. HEENT: No sclera icterus. Extraocular movements grossly intact. Moist buccal mucosa. Head is atraumatic, normocephalic. ABDOMEN: Soft. Nondistended. Stool present in ostomy bag ASSESSMENT: 1. Stage IV infected sacral decubitus ulcer status post debridement 2 2. Status post diverting colostomy due to stage IV sacral decubitus ulcer 2. Hypokalemia improved 3. Sepsis due to large sacral decubitus ulcer 4. History of adrenaleukodystrophy PLAN: -Patient can be discharge from surgical standpoint -Continue local wound care -Continue wound VAC per wound care service -Continue antibiotics per ID service -Continue regular diet Physician Audit Tech note has been reviewed by physician. Signing provider agrees with the documented findings, assessment, and plan of care. Objective - Vital Signs Vital signs: Vital Signs Temp 98.3 F 08/31/21 11:07 Pulse 72 08/31/21 11:22 Resp 20 08/31/21 11:07 BP 113/68 08/31/21 11:07 Pulse Ox 100 08/31/21 11:07 Intake & Output 08/30/21 08/31/21 08/31/21 18:59 06:59 18:59 Output Total 1599 Balance -1599 Weight 61.235 kg Output: Urine 1600 1999 800 Other: Voiding Method Indwelling Catheter Indwelling Catheter Indwelling Catheter # Voids 0 # Bowel Movements 0 - Labs CBC & Chem 7: 08/29/21 05:24 08/31/21 06:50 Labs: Abnormal Lab Results - Last 24 Hours (Table) 08/31/21 Range/Units 06:50 Sodium 131 L (137-145) mmol/L BUN 2 L (9-20) mg/dL Creatinine 0.51 L (0.66-1.25) mg/dL Calcium 7.9 L (8.4-10.2) mg/dL
[2021-08-31] MEDS: SODIUM CHLORIDE 0.9% 1,000 ML IV SCH (13:02)
--- NOTE | 2021-08-31 13:09 | P.DS ---
<Mo King - Last Filed: 08/31/21 12:49> Providers Expected date of discharge: 08/31/21 Hospital Course: Discharge Diagnosis: Sepsis secondary to large stage IV sacral ulcer Infected sacral ulcer positive for MRSA diphtheroid species status post de bridement x 2 with wound vac placement Status post diverting colostomy with repair of umbilical hernia and partial omentectomy secondary to sacral decubitus ulcer with exposed bone MRSA UTI Bacteroides fragillis Bacteremia Hypokalemia, resolved Normocytic normochromic anemia, chronic of unclear etiology, stable at this time Thrombocytosis, suspected reactive with dehydration and acute stressors, resolved Mild hyponatremia, resolved Adrenoleukodystrophy Hospital Course: Patient is a 55-year-old male with a PMH of adrenoleukodystrophy, essentially bedbound who was brought into the emergency room by his for buttock ulcer, worsening mental status, and fever in 08/20/21. at this time patient was found to be septic with heart rate of 110, temperature 100.4F, and WBC count of 34.7. in addition patient was found to be significantly hypokalemic with potassium of 2.6. Urinalysis contaminated but concerning for positive for infection with findings of protein, ketones, blood, leukocytes, 16 RBCs, and 79 WBCs. patient was admitted under our services with consultation to general surgery and infectious disease. patient underwent debridement of sacral ulcer on 08/12/21 and underwent a second debridement in OR with Dr. Perez on 08/17/21. During second surgical debridement, surgeon recommending that patient may need diverging colostomy secondary to sacral decubitus ulcer with exposed bone. Wound vac was placed to sacral region. Blood culture was positive for Bacterpodes fragillis, urine culture positive for MRSA, and tissue Gram stain from sacral ulcer positive for MRSA and diphtheroid species. Pt treated with IV antibiotics initially vancomycin and Unasyn and later changed to vancomycin and Invanz. Patient underwent diverting colostomy with repair of incisional hernia and partial omentectomy on 08/23/[address] Perez. Ostomy functioning with good output. Wound VAC remains in place. Patient has been cleared from surgical standpoint and is medically stable for discharge to SNF for continued care. Patient to receive continued IV antibiotics with Invanz and vancomycin for treatment of MRSA diphtheroid species infected wound, MRSA UTI and Bacteroides fragillis Bacteremia and will be managed by infectious disease. Patient has been accepted for admission to [facility] where he will continue to receive wound care, management of wound VAC, and continued IV antibiotics managed by infectious disease. Patient is medically stable for discharge at this time. Physical exam: Patient seen and fully evaluated at the bedside this morning. Updated patient on plan discharged to SNF later today. Ostomy is functioning well. Patient currently denies having any complaints or concerns at this time including chest pain, palpitations, shortness of breath, nausea, or vomiting. He reports pain is being managed with current pain management regimen. Patient medically stable for discharge. Vital signs reviewed and stable. General: Nontoxic, no distress and appears chronically ill Derm: Skin warm and dry, normal coloration for ethnicity. Dressing in place to sacral/coccyx region with Wound Vac. Head: Atraumatic, normocephalic and symmetric. very hard of hearing. Eyes: no lid lag, and anicteric sclera Mouth: no lip lesions, mucus membranes moist Cardiovascular: regular rate and rhythm with normal S1S2, no murmur, positive posterior tibial pulses bilaterally, and cap refill < 2 seconds. Lungs: Respirations even, regular, and unlabored on room air. Lungs CTA bilaterally, no rhonchi, no rales, no wheezing, and no accessory muscle usage. Abdominal: soft, nontender to palpation, no guarding, no appreciable organomegaly. Ostomy in place with stool in ostomy bag. Ext: Bed bound, limited movement in BLE, sensation and movement intact to BUE. diffuse muscle atrophy, no contractures. Neuro: Speech clear, face symmetrical Psych: Alert and oriented to person, place, and situation. Appropriate and pleasant affect. A total of 45 minutes of time were spent preparing this complex discharge summary. Assessment: I reviewed the documentation as provided by the TAMIE above, who is the original author of this note. I agree with the documented assessment and plan, with the following changes: None Patient Condition at Discharge: Stable Plan - Discharge Summary New Discharge Prescriptions: New Acetaminophen Tab [Tylenol] 650 mg PO Q6HR PRN tab PRN Reason: Mild Pain Or Fever > 100.5 Vancomycin/0.9 % Sod Chloride [Vanco 750 mg/250 ml-0.9% NaCl] 750 mg IV Q8HR #84 each Ipratropium-Albuterol Nebulize [Duoneb 0.5 mg-3 mg/3 ml Soln] 3 ml INHALATION RT-QID ml Nicotine 21Mg/24Hr Patch [Habitrol] 1 patch TRANSDERM DAILY patch Ertapenem [INVanz] 1 gm IM DAILY #28 each Continue Fluticasone Nasal [place] [Flonase Nasal [place]] 2 spray EA NOSTRIL DAILY Escitalopram [Lexapro] 10 mg PO DAILY Mirabegron [Myrbetriq] 50 mg PO DAILY Ibuprofen [Motrin] 800 mg PO Q8H PRN PRN Reason: Pain Changed HYDROcodone/APAP 10-325MG [Marcus 10-325] 1 tab PO Q6H PRN #0 PRN Reason: Pain Discontinued Ibuprofen [Advil] 200 mg PO Q8HR PRN PRN Reason: Pain Discharge Medication List Escitalopram [Lexapro] 10 mg PO DAILY 08/09/21 [History] Fluticasone Nasal [place] [Flonase Nasal [place]] 2 spray EA NOSTRIL DAILY 08/09/21 [History] Ibuprofen [Motrin] 800 mg PO Q8H PRN 08/09/21 [History] Mirabegron [Myrbetriq] 50 mg PO DAILY 08/09/21 [History] Acetaminophen Tab [Tylenol] 650 mg PO Q6HR PRN tab 08/31/21 [Rx] Ertapenem [INVanz] 1 gm IM DAILY #28 each 08/31/21 [Rx] HYDROcodone/APAP 10-325MG [Marcus 10-325] 1 tab PO Q6H PRN #0 08/31/21 [Rx] Ipratropium-Albuterol Nebulize [Duoneb 0.5 mg-3 mg/3 ml Soln] 3 ml INHALATION RT-QID ml 08/31/21 [Rx] Nicotine 21Mg/24Hr Patch [Habitrol] 1 patch TRANSDERM DAILY patch 08/31/21 [Rx] Vancomycin/0.9 % Sod Chloride [Vanco 750 mg/250 ml-0.9% NaCl] 750 mg IV Q8HR #84 each 08/31/21 [Rx] Follow up Appointment(s)/Referral(s): Nursing,[facility]roleum [NON-STAFF] - 1 Week Nonstaff,Physician [Primary Care Provider] - 1-2 days Deandre Jain MD [STAFF PHYSICIAN] - 2 Weeks Spencer Perez MD [STAFF PHYSICIAN] - As Needed Ambulatory/Diagnostic Orders: Basic Metabolic Panel [LAB.AMB] Location: None Selected C Reactive Protein [LAB.AMB] Location: None Selected Complete Blood Count w/diff [LAB.AMB] Location: None Selected Erythrocyte Sedimentation Rate [LAB.AMB] Location: None Selected Patient Instructions/Handouts: Colostomy Care (GEN), Peripherally Inserted Central Catheters and Midline Catheters (DC) Activity/Diet/Wound Care/Special Instructions: Activity: Turn every two hours, off load from coccyx/tailbone as much as possible. Diet: Heart healthy and carb consistent diet. Avoid salts, or foods with hidden salts such as canned or boxed foods and frozen dinners. Special Instructions: Take all of your medications as directed and remember to keep all of your doctor's appointments and follow-up as needed. You are being discharged to [facility] where you will continue to receive IV antibiotics, wound care, and continued treatment/rehab until you are well enough to return home. Ostomy Care Recommendations from [facility] to Home & Home Health: Mr Coombs will be receiving the following ostomy care products from the hospital for home use as follows: -Last Pouching system change for Osotmy: 08.26.2021 -Convatec moldable flange #[id number] (3) -Convatec pouch with filter #[id number] (3) -One piece cut to fit Convatec #[id number] (3) -No Sting prep pads (10) -Ostomy Powder (1) Please empty the pouching system when it is 1/2 to 1/3 full Please change the entire pouching system every 3-5 days unless otherwise directed by Home care or your physician Rehab please assess the possibility it Mr Coombs could utilize disposable pouching system in 2 weeks after discharge Wound Vac to Sacrum: Last Date Changed: please call [facility] at [phone] day of discharge from rehab for hospital bed and low air loss mattress Leslie may be removed at SNF in 7 days. Follow up with General Surgery, Dr. Perez as needed. Thank you for allowing us to participate in your care, it was truly a pleasure having you for our patient!!! Discharge Disposition: TRANSFER TO SNF/ECF Care Plan Goals (MU): Nutrition recommendations, chopped diet, high protein oral supplement for wound healing (Ensure BID) <Jonathon Tolentino - Last Filed: 08/31/21 18:42> Providers Date of admission: 08/10/21 01:49 Attending physician: Walter Cruz MD Consults: 08/10/21 01:50 Consult Physician Routine Consulting Provider: Spencer Perez Consult Reason/Comments: sacral decubitus ulcer Do you want consulting provider notified?: Yes 08/10/21 12:43 Consult Physician Routine Consulting Provider: Deandre Jain Consult Reason/Comments: sepsis Do you want consulting provider notified?: Yes Primary care physician: Physician Nonstaff
[2021-08-31 15:48] VITALS: PULSE 80
--- NOTE | 2021-09-06 08:17 | CDI ---
Documentation Clarification Form Date: 09/03/2021 04:28:00 PM From: Shelbie Rubio RN, CCDS Admit Date: 08/10/2021 01:49:00 AM Patient Name: Rober Coombs Visit Number: [id number] Discharge Date: 08/31/2021 03:50:00 PM ATTENTION: The Clinical Documentation Specialists (CDI) and [facility] Coding Staff appreciate your assistance in clarifying documentation. Please respond to the clarification below the line at the bottom and electronically sign. The CDI & [facility] Coding staff will review the response and follow-up if needed. Please note: Queries are made part of the Legal Health Record. If you have any questions, please contact the author of this message via ITS. Dr. Jonathon Tolentino Conflicting documentation has been found in the medical record. As attending physician, please provide clarification. 08/10/21 ED assessment: Pressure ulcer of sacral region, stage IV 08/10/21 H/P and subsequent progress notes: 08/10-08/18): Sepsis secondary to large unstageable sacral ulcer. 08/13/21 Surgery: Stage III infected decubitus ulcer 08/13/21 Dr. Duncan (wound care): pressure ulcer stage IV sacral 08/22/21-08/31 Attending (Dr. Tolentino): Sepsis secondary to large stage IV sacral ulcer. History/Risk Factors: Adrenal leukomyopathy, Current every day smoker Clinical Indicators:55-year-old male essentially bedbound brought into the emergency room by his for buttock ulcer, worsening mental status and fever found to be septic with heart rate of 120, temp 100.4, and WBC 34.7. 08/10 ED assessment: Pressure ulcer of sacral region, stage 4, Sepsis, acute kidney injury, Hypokalemia Treatment: 08/12/21 Excisional debridement of sacral ulcer 08/17/21 Excisional debridement of sacral ulcer Vancomycin 1,250 MG IVPB Q 12 HRS PTD Herb 3.375 MG IVPB 8 HRS Invanz 1GM IVPB (08/25-08/31) Unasyn 3GM IVBP Q6 HRS (08/11-08/25) Apply sanytl, edge to edge, saline moist gauze and ABD (08/13-08/18) Turn patient every 2 hours Consult dietary for nutrition needs for chronic pressure ulcer Wound VAC per wound care service Please clarify which diagnosis is most appropriate: [ ] Sacral pressure ulcer stage IV, POA [ ] Sacral pressure ulcer stage III, POA [ ] Other (please specify) [ ] Unable to determine (Template Last Revised: November 2020) Sepsis secondary to large stage IV sacral ulcer present on admission MTDD
--- NOTE | 2021-09-06 08:58 | CDI ---
Documentation Clarification Form Date: 09/06/2021 08:19:22 AM From: Shelbie Rubio RN, CCDS Admit Date: 08/10/2021 01:49:00 AM Patient Name: Rober Coombs Visit Number: [id number] Discharge Date: 08/31/2021 03:50:00 PM ATTENTION: The Clinical Documentation Specialists (CDI) and [facility] Coding Staff appreciate your assistance in clarifying documentation. Please respond to the clarification below the line at the bottom and electronically sign. The CDI & [facility] Coding staff will review the response and follow-up if needed. Please note: Queries are made part of the Legal Health Record. If you have any questions, please contact the author of this message via ITS. Dr. Walter Cruz Your patient has the documented symptom of altered mental status at time of arrival to the emergency. Additional clarification regarding the etiology/cause of this symptom is requested. 08/10/21 H/P: worsening mental status, and fever. Neuro: No gross focal deficits notes. Psych: Lethargic, oriented only to self History/Risk Factors: Adrenal leukomyopathy, Sacral ulcer, Current every day smoker Clinical Indicators: 55-year-old male essentially bedbound brought into the emergency room by his for buttock ulcer, worsening mental status and fever found to be septic with heart rate of 120, temp 100.4. He was positive for weakness fever. History from patient's as he is appearing to be delirious, sleeping much more than usual over the past 2 days. Confusion, loss of appetite. General appearance: (ED) Obtunded, cachectic. Mucous membranes dry. Skin There is decubitus ulcer covering the sacrum. Skin is necrotic but the wound is not open, extensive. 08/10 Labs: WBC 34.7, Neurhtophils 32.5, Potassium 2.6, Chloride 109, Carbon Dioxide 19 BUN 35, Creatinine 0.91 Lactic acid 1.5, UA: Rr Leukocyte Esterase Large WBC 79, Urine culture (08/09 MRSA) 08/09 Chest X-ray: Mild scarring or subsegmental atelectasis left lung base. 08/10 CT Brain Cerebral atrophy and chronic small vessel ischemia. No acute intracranial abnormality. Bilateral masoiditis. Treatment: Neurological assessment per protocol 08/12/21 Excisional debridement of sacral ulcer 08/17/21 Excisional debridement of sacral ulcer Vancomycin 1,250 MG IVPB Q 12 HRS PTD Herb 3.375 MG IVPB 8 HRS Invanz 1GM IVPB (08/25-08/31) Unasyn 3GM IVBP Q6 HRS (08/11-08/25) Please clarify the etiology of the symptom of Altered Mental Status: [ ] Metabolic Encephalopathy due to Sepsis POA [ ] Other condition (please specify) [ ] Unable to determine (Template Last Revised: November 2020) Metabolic encephalopathy due to sepsis present on arrival improved after initiation of treatment and throughout hospitalization MTDD
== END 2021-08-31 15:50 | DRG 853 ==
LOC: EC 18:13 → UNDOADMOB 08-10 01:49 → 6NMEDSUR 08-10 01:49 → 5NMEDONC 08-10 01:49
PROVIDERS: ADMIT Internal Medicine; ATTEND Internal Medicine
PROC: 0KBP0ZZ Excision of Left Hip Muscle, Open Approach (ICD-10-PCS; 2021-08-12)
PROC: 0KBN0ZZ Excision of Right Hip Muscle, Open Approach (ICD-10-PCS; 2021-08-12)
PROC: 0KDP0ZZ Extraction of Left Hip Muscle, Open Approach (ICD-10-PCS; 2021-08-17)
PROC: 0KDN0ZZ Extraction of Right Hip Muscle, Open Approach (ICD-10-PCS; 2021-08-17)
PROC: 0KDN0ZZ Extraction of Right Hip Muscle, Open Approach (ICD-10-PCS; principal; 2021-08-17 07:30)
PROC: 02HV33Z Insertion of Infusion Device into Superior Vena Cava, Percutaneous Approach (ICD-10-PCS; 2021-08-20)
PROC: 0D1N0Z4 Bypass Sigmoid Colon to Cutaneous, Open Approach (ICD-10-PCS; 2021-08-23)
PROC: 0WQF0ZZ Repair Abdominal Wall, Open Approach (ICD-10-PCS; 2021-08-23)
PROC: 0DBU0ZZ Excision of Omentum, Open Approach (ICD-10-PCS; 2021-08-23)
DX: A41.9 Sepsis, unspecified organism (principal); L89.154 Pressure ulcer of sacral region, stage 4; G93.41 Metabolic encephalopathy; C49.A0 Gastrointestinal stromal tumor, unspecified site; E71.529 X-linked adrenoleukodystrophy, unspecified type; E87.0 Hyperosmolality and hypernatremia; E87.1 Hypo-osmolality and hyponatremia; N17.9 Acute kidney failure, unspecified; N39.0 Urinary tract infection, site not specified; L03.312 Cellulitis of back [any part except buttock and flank]; T83.518A Infection and inflammatory reaction due to other urinary catheter, initial encounter; Z16.24 Resistance to multiple antibiotics; Z20.822 Contact with and (suspected) exposure to COVID-19; B95.62 Methicillin resistant Staphylococcus aureus infection as the cause of diseases classified elsewhere; B96.6 Bacteroides fragilis [B. fragilis] as the cause of diseases classified elsewhere; D64.9 Anemia, unspecified; D75.839 Thrombocytosis, unspecified; E87.6 Hypokalemia; F17.200 Nicotine dependence, unspecified, uncomplicated; F32.A Depression, unspecified; Z79.899 Other long term (current) drug therapy; Z99.3 Dependence on wheelchair; Z87.440 Personal history of urinary (tract) infections; Y84.6 Urinary catheterization as the cause of abnormal reaction of the patient, or of later complication, without mention of misadventure at the time of the procedure; G62.9 Polyneuropathy, unspecified; K42.9 Umbilical hernia without obstruction or gangrene; L98.419 Non-pressure chronic ulcer of buttock with unspecified severity; Z74.01 Bed confinement status; M54.9 Dorsalgia, unspecified; K43.2 Incisional hernia without obstruction or gangrene
CPT/HCPCS: 36415; 36573; 70450; 71045; 71046; 74019; 74177; 80048; 80053; 80076; 80202; 81001; 82565; 83605; 83735; 84100; 84132; 84484; 85025; 85027; 85610; 85652; 85730; 86140; 86850; 86900; 86901; 87040; 87070; 87075; 87077; 87086; 87186; 87205; 87635; 88305; 93005; 94640; 94760; 96365; 99285